=== PATIENT | male | born 1940 | race Caucasian/White ===

== ENCOUNTER 2020-07-08 09:51 | Outpatient (REF) | payer MEDICARE, MEDICAID, SELFPAY ==
[2020-07-08 12:07] LABS: Blood Urea Nitrogen 17 mg/dL (9-16); Estimated Glomerular Filt Rate > 60
== END 2020-07-08 09:52 | disposition home or self-care (01) ==
LOC: HO.LAB 09:51
PROVIDERS: PCP Internal Medicine; Visit Provider Surgery
DX: R10.30 Lower abdominal pain, unspecified (principal); Z87.19 Personal history of other diseases of the digestive system
CPT/HCPCS: 36415; 82565; 84520; 99212

== ENCOUNTER 2020-07-14 13:47 | Outpatient (REF) | payer MEDICARE, MEDICAID, SELFPAY ==
--- NOTE | ~2020-07-14 | CT_ITS ---
EXAMINATION: CT ABDOMEN AND PELVIS WITH CONTRAST CLINICAL INFORMATION: Lower abdominal pain COMPARISON: Previous CT of the abdomen and pelvis December 2018 TECHNIQUE: Multidetector volumetric images were obtained from the superior aspect of the liver through the pubic symphysis following administration 85 mL of Omnipaque 350 intravenous contrast. Sagittal and coronal reformatted images were obtained on the technologist's workstation. Oral contrast: Yes This CT examination was performed using dose optimization techniques as appropriate, variously including the following: *Automated exposure control *Adjustment of mA and/or kV according to patient size (this includes techniques or standardized protocols for targeted exams where dose is matched to indication/reason for exam; i.e. extremities or head) *Use of iterative reconstruction technique DLP: 516 mGy-cm FINDINGS: LUNG BASES: There is scarring or chronic subsegmental atelectasis at the left lung base. LIVER, GALLBLADDER, AND BILIARY TREE: The liver is normal in size, shape, and attenuation. No focal hepatic lesion or biliary ductal dilatation is present. The gallbladder is unremarkable with no evidence of radiopaque gallstones, gallbladder wall thickening, or obvious pericholecystic inflammatory changes. PANCREAS: Unremarkable. SPLEEN: Unremarkable. ADRENAL GLANDS: Unremarkable. KIDNEYS AND URETERS: There is a 4 x 6 cm cyst in the lower pole the left kidney. Kidneys are otherwise BLADDER: The left lower bladder and small left inguinal hernia. Latter is otherwise unremarkable GASTROINTESTINAL TRACT: There is diverticulosis of the colon. No evidence of diverticulitis otherwise unremarkable. The stomach is not optimally distended. There is question of wall thickening of the proximal stomach. ABDOMINAL WALL: There are bilateral inguinal hernias. The right inguinal hernia containing fat. The left hernia containing fat and bladder. LYMPH NODES: Normal. VASCULAR: Unremarkable. PELVIC VISCERA: The prostate gland is enlarged measuring 4 x 6.5 cm in AP and transverse dimension. OSSEOUS STRUCTURES: There are degenerative changes of the spine. CT/CT abdomen pelvis w con IMPRESSION: Diverticulosis of the colon. No evidence of diverticulitis. Question wall thickening of proximal stomach. Small bilateral inguinal hernias. The bladder extends into the left inguinal hernia. Left renal cyst. Enlarged prostate gland.
[2020-07-14] MEDS: iohexoL 350 MG/ML 100 ML INFUS..BTL IV (14:34)
== END 2020-07-14 13:48 | disposition home or self-care (01) ==
LOC: HO.CT 13:47
PROVIDERS: Visit Provider Surgery
DX: R10.30 Lower abdominal pain, unspecified (principal)
CPT/HCPCS: 74177; Q9967

== ENCOUNTER → 2020-07-26 13:29 | Outpatient (BNVA) | payer MEDICARE, MEDICAID, SELFPAY | PROVIDERS: PCP Internal Medicine; Visit Provider Surgery | DX: K40.91 Unilateral inguinal hernia, without obstruction or gangrene, recurrent (principal) | CPT/HCPCS: 99212 ==

== ENCOUNTER 2020-09-01 12:27 | Outpatient (REF) | payer MEDICARE, MEDICAID, SELFPAY ==
--- NOTE | ~2020-09-01 | US_ITS ---
EXAMINATION: US RETROPERITONEAL LIMITED (RENAL ONLY) CLINICAL INFORMATION: Congenital renal cyst. COMPARISON: CT abdomen and pelvis 07/14/2020. Ultrasound renal with bladder 12/23/2013. TECHNIQUE: Real-time imaging of the kidneys. FINDINGS: RIGHT KIDNEY: 11.4 x 5.1 x 4.7 cm (SAG x AP x TRV). The kidney is normal in size, contour, and echogenicity. Renal cortical thickness is normal. No calculi or focal parenchymal lesions. No hydronephrosis. LEFT KIDNEY: 12.8 x 6.4 x 4.2 cm (SAG x AP x TRV). The kidney is normal in size, contour, and echogenicity. Renal cortical thickness is normal. No renal calculi or hydronephrosis. Within the lower pole there is again noted to be a cyst measuring 7.4 x 4.3 x 5.3 cm in size with some lobulations and thin septations with no internal vascularity. The cyst has been present since previous study of December 23, 2013. 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
== END 2020-09-01 12:28 | disposition home or self-care (01) ==
LOC: HO.US 12:27
PROVIDERS: Visit Provider Internal Medicine
DX: Q61.00 Congenital renal cyst, unspecified (principal)
CPT/HCPCS: 76775

== ENCOUNTER → 2020-11-22 14:48 | Outpatient (BNVA) | payer MEDICARE, MEDICAID, SELFPAY | PROVIDERS: PCP Internal Medicine; Referring Provider Internal Medicine; Visit Provider Surgery | DX: K40.91 Unilateral inguinal hernia, without obstruction or gangrene, recurrent (principal) | CPT/HCPCS: 99212 ==

== ENCOUNTER 2020-12-10 07:00 | Day surgery (SDC) | payer MEDICARE, MEDICAID, SELFPAY ==
[2020-12-03 11:41] VITALS: BMI 29.1
--- NOTE | 2020-12-08 15:27 | P.CONAN_ITS ---
Documented by User: Katie Zhao NP 12/20/20 14:27 HPI - Anesthesia Eval Consult details Narrative: 79yo M for Hernia Repair Inguinal with Mesh PMFSH Active Problems Active Problems: All Active Problems (Updated 12/03/20 @ 11:41 by Lexi Glasgow, RN) Recurrent inguinal hernia (Acute) Lower abdominal pain (Acute) Past Medical History Medical History BPH (benign prostatic hyperplasia) COVID-19 vaccine series completed GERD (gastroesophageal reflux disease) HTN (hypertension) Lower abdominal pain Recurrent inguinal hernia Family History Family History Sister Breast cancer Surgical History Surgical History H/O colonoscopy History of hernia surgery History of hernia surgery History of left inguinal hernia repair Hx of cystoscopy Hx of transurethral resection of prostate Hx of varicose vein ligation and stripping Social History Social History Are you a primary career development associate to a significant other at home: No Do you presently have visiting nurse or other home services: No Alcohol intake: never Patient Tobacco Use Status: Never used Tobacco Meds Allergies Allergy/AdvReac Type Severity Reaction Status Date / Time No Known Allergies Allergy Verified 12/20/20 16:22 [No Known Allergies*] Home Medications Medication Instructions Recorded Confirmed Last Taken Type aspirin 81 mg tablet,delayed 81 mg PO DAILY 07/08/20 12/03/20 Unknown History release fluticasone propionate 50 2 spray INTRANASAL DAILY 07/08/20 12/03/20 Unknown History mcg/actuation nasal spray,suspension lisinopril 40 mg tablet 40 mg PO DAILY 07/08/20 12/03/20 Unknown History metoprolol succinate 100 mg 100 mg PO DAILY 07/08/20 12/03/20 Unknown History tablet,extended release 24 hr omeprazole 20 mg capsule,delayed 20 mg PO DAILY 07/08/20 12/03/20 Unknown History release polyvinyl alcohol 1.4 % eye drops 0 drp OPHTHALMIC (EYE) DIRECTED 07/08/20 12/03/20 Unknown History Exam Exam Date and Time: December 08, 2020 1527 Height,Weight and Vital Signs: Height 6 ft 2 in Weight 102.965 kg Assessment and Plan Assessment Anesthesia Assessment: Chart Reviewed Documented by User: Susu Rodriguez MD 01/20/21 09:16 PMFSH Active Problems Active Problems: All Active Problems (Updated 12/03/20 @ 11:41 by Lexi Glasgow, ERIC) Recurrent inguinal hernia (Acute) Lower abdominal pain (Acute) Patient a little shaky- tremors with signing Past Medical History Medical History BPH (benign prostatic hyperplasia) COVID-19 vaccine series completed GERD (gastroesophageal reflux disease) HTN (hypertension) Lower abdominal pain Recurrent inguinal hernia Family History Family History Sister Breast cancer Family history of problems with anesthesia: No Surgical History Surgical History H/O colonoscopy History of hernia surgery History of hernia surgery History of left inguinal hernia repair Hx of cystoscopy Hx of transurethral resection of prostate Hx of varicose vein ligation and stripping History of Problems with Anesthesia: No Social History Social History Are you a primary career development associate to a significant other at home: No Do you presently have visiting nurse or other home services: No Alcohol intake: never Patient Tobacco Use Status: Never used Tobacco Meds Allergies Allergy/AdvReac Type Severity Reaction Status Date / Time No Known Allergies Allergy Verified 12/20/20 16:22 [No Known Allergies*] Home Medications Medication Instructions Recorded Confirmed Last Taken Type aspirin 81 mg tablet,delayed 81 mg PO DAILY 07/08/20 12/03/20 Unknown History release fluticasone propionate 50 2 spray INTRANASAL DAILY 07/08/20 12/03/20 Unknown History mcg/actuation nasal spray,suspension lisinopril 40 mg tablet 40 mg PO DAILY 07/08/20 12/03/20 Unknown History metoprolol succinate 100 mg 100 mg PO DAILY 07/08/20 12/03/20 Unknown History tablet,extended release 24 hr omeprazole 20 mg capsule,delayed 20 mg PO DAILY 07/08/20 12/03/20 Unknown History release polyvinyl alcohol 1.4 % eye drops 0 drp OPHTHALMIC (EYE) DIRECTED 07/08/20 12/03/20 Unknown History Exam Height,Weight and Vital Signs: Height 6 ft 2 in Weight 102.965 kg Vital Signs Temp Pulse Resp BP Pulse Ox 12/10/20 07:18 98.0 F 61 16 142/98 H 98 Airway Mallampati Class: II TM Dist: >3cm Neck ROM: Full Partial: Upper Loose/Missing/Broken Teeth: Yes (Some ?chipped lower) Heart: RRR Lungs: CTAB Assessment and Plan Assessment Anesthesia Assessment: Anesthesia Plan Discussed Final Anesthetic Review Family History of Problems with Anesthesia: No History of Problems with Anesthesia: No NPO: Yes ASA Class: III Final Preanesthetic Review: No Changes in Pt Med Stat, Meds/Allgs Chart Reviewed, Consent Obtained/Reviewed and Anes Risks/Benef Reviewed Patient Risk: Intermediate Procedure Risk: Low Assessment/Block/Sedation in SS: Assess/Block/Sedation-SS Anesthetic Plan Anesthetic Plan: GA Disposition: Standard PACU
[2020-12-10] VITALS (9 sets, daily range): BP systolic 105–160; BP diastolic 60–100; PULSE 53–61; RESP 11–17; TEMP 36.4–36.7; O2SAT 94–98
[2020-12-10] MEDS: Lactated Ringers 1,000 ML 100 ML IVCONT (07:33)
--- NOTE | 2020-12-10 08:21 | MHC.SHP ---
Pre-Procedural Eval Section A Date of Service: 12/10/20 Section B Chief Complaint: Left Inguinal Hernia Allergies: Allergies Allergy/AdvReac Type Severity Reaction Status Date / Time No Known Allergies Allergy Verified 07/26/20 13:42 [No Known Allergies*] Plan I have reviewed the history and physical and performed a pertinent physical examination on my patient. No changes have occurred unless specified.
--- NOTE | 2020-12-10 09:45 | W.PM.OPN ---
Operative Note Operative Note Date of Service: 12/10/20 Narrative: Preop diagnosis: Recurrent left inguinal hernia Postop diagnosis: Recurrent left inguinal hernia Procedure: Repair of a recurrent left inguinal hernia with Prolene plug Surgeon: Nayan Geiger MD 1st social services assistant: TRISTAN Herron The patient is a 79-year-old male who was had multiple repairs of left inguinal hernia in the past. He came back to me because of the another recurrence. He says this has been bothering him with pain he wanted to proceed with another repair. I did have a long discussion with him about the technical difficulty with another repair in view of his multiple surgeries in the past and he understood that he would be at risk for chronic pain and another recurrence as we anticipate significant fibrotic scarring and poor anatomy from his previous surgeries. He says he wanted to give it another try. He was brought to the operating room and placed supine on table under general anesthesia via laryngeal mask airway. The left groin was prepped and draped in the usual sterile fashion. A surgical time-out was done. The patient received cefazolin 2 g IV preoperatively I made a generous incision on the skin in the left inguinal area along an imaginary line from the anterior superior iliac spine to the pubic ramus using blade 15. This carried down through the full-thickness of the skin and subcutaneous fat with electrocautery.It is noted that we immediately encountered thick fibrotic tissue from his previous surgeries on the same area. He had therefore had to dissect gently and slowly until was able to clearly expose the external oblique aponeurosis. I could not clearly define the external ring as there was note of very dense fibrotic tissue around this area. I continued to gently dissect the floor of the canal past the external ring. I was able to expose the pubic ramus. Laterally, we also noted significant fibrotic changes. I continued to dissect gently using the right angle clamp and Metzenbaum scissors as well as electrocautery to define the anatomy and the left groin. I was able to actually visualize the spermatic cord going inferomedially the level of the pubic ramus. With blunt dissection, I was able to isolate this but there was note of significant surrounding fibrotic tissue. I attempted to therefore use the pneumatic cordas a guide to trace this more proximally to see if we could still identify the external ring at all. However, we encountered again the same thick dense fibrosis in the area. I felt that at this time, we would be at risk for injuring structuresof the spermatic cord in view of the very poor anatomy from the dense scarring. I was however able to palpate for the underside of the external oblique medially. I was able to at least expose part of the external oblique in this area. I was therefore able to palpate for the floor of the canal distally. I continued to dissect the spermatic cord to identify any sac. I could not identify a sac but I could feel a defect in the floor of the canal which was very small. This appeared to be the diameter of my index finger. Since we he would not be able to expose the rest of the canal, I decided to just reinforced this small defect with a Prolene plug. The plug was secured using its inner leaves with Prolene 2 sutures to the internal oblique medially, and the pubic ramus inferomedially as well as part of the pubis inferiorly. This seemed to secure the Prolene plug to provide adequate coverage of the small defect. I felt that further dissection in the area would put the patient at risk for injury to the cord contents as well as the femoral vessels underneath so I decided against further aggressive dissection. I obviously irrigated. I closed the deep subcutaneous layer surrounding the canal past the level of the external ring using Dexon 3-0 sutures. Skin closure was achieved with Dexon 4-0 subcuticular sutures. The area of the incision was generously infiltrated with Marcaine 0.5% for postop analgesia and the procedure was completed. The patient tolerated the procedure well. There were no complications noted. Initial and final counts of sponges and instruments were correct. Estimated blood loss about 25 cc. The patient is extubated without difficulty and transferred to recovery room with stable vital signs.
--- NOTE | 2020-12-10 09:54 | PM.OP ---
Brief Operative Note Date of Service: 12/10/20 Pre-op diagnosis: Recurrent left inguinal hernia Post-op diagnosis: same (With note of very dense fibrotic changes surrounding the inguinal canal) Procedure: Repair of Recurrent left inguinal hernia with Prolene plug Implants: Prolene plug Surgeon: Nayan Geiger MD Anesthesia: GLMA Was an Packing And Wrapping Supervisor used for this Procedure?: No Packing And Wrapping Supervisor: Rosario Herron Estimated blood loss (mL): 25 Pathology: none sent Condition: stable Disposition: PACU
[2020-12-10] MEDS: ondansetron HCL 4 MG/2 ML VIAL IVPUSH (10:53)
[2020-12-10] MEDS: Acetaminophen 325 MG TABLET 650 MG PO (10:56)
[2020-12-10] MEDS: oxyCODONE HCl Immed Release 5 MG TABLET PO (10:57)
== END 2020-12-10 11:50 | disposition home or self-care (01) ==
PROVIDERS: PCP Internal Medicine; Visit Provider Surgery
PROC: (CPT 49520; principal; 2020-12-10 08:40)
DX: K40.91 Unilateral inguinal hernia, without obstruction or gangrene, recurrent (principal); K21.9 Gastro-esophageal reflux disease without esophagitis; I10 Essential (primary) hypertension; Z79.82 Long term (current) use of aspirin; Z79.899 Other long term (current) drug therapy
CPT/HCPCS: 49520; C1781; J0690; J2405; J3010

== ENCOUNTER → 2020-12-20 15:30 | Outpatient (BNVA) | payer MEDICARE, MEDICAID, SELFPAY | PROVIDERS: PCP Internal Medicine; Referring Provider Internal Medicine; Visit Provider Surgery | DX: Z48.815 Encounter for surgical aftercare following surgery on the digestive system (principal); Z87.19 Personal history of other diseases of the digestive system | CPT/HCPCS: 99212 ==

== ENCOUNTER → 2021-01-20 10:52 | Outpatient (BNVA) | payer MEDICARE, MEDICAID, SELFPAY | PROVIDERS: PCP Internal Medicine; Referring Provider Internal Medicine; Visit Provider Surgery | DX: K40.91 Unilateral inguinal hernia, without obstruction or gangrene, recurrent (principal); L72.0 Epidermal cyst | CPT/HCPCS: 99212 ==

== ENCOUNTER → 2021-02-22 08:47 | Outpatient (BNVA) | payer MEDICARE, MEDICAID, SELFPAY | PROVIDERS: PCP Internal Medicine; Visit Provider Urology | DX: N40.0 Benign prostatic hyperplasia without lower urinary tract symptoms (principal); R10.31 Right lower quadrant pain; R10.32 Left lower quadrant pain | CPT/HCPCS: 51798; 99212 ==

== ENCOUNTER 2021-02-24 14:00 | Outpatient (REF) | payer MEDICARE, MEDICAID, SELFPAY ==
[2021-02-24 14:01] VITALS: BMI 29.5
[2021-02-24 14:02] VITALS: BP 158/91; PULSE 67; RESP 16; TEMP 36.7; O2SAT 97
--- NOTE | 2021-02-24 14:23 | W.PM.OPN ---
Operative Note Operative Note Date of Service: 02/24/21 Narrative: Preop diagnosis: Scalp cyst, postauricular area left Postop diagnosis the same Procedure: Excision of scalp cyst, postauricular area under local anesthesia Surgeon: Nayan Geiger MD The patient is a 80-year-old male with an epidermal inclusion cyst on the scalp at the postauricular area on the left side. He understood the technique of excision under local anesthesia. He was aware of the risks, benefits, and alternatives . Was brought to the minor procedure room and placed supine with the head turned to the right expose the cyst. The area was prepped and draped. Lidocaine 1% was used for local anesthesia. I made an elliptical incision around this cyst using blade 15 and this was carried down through the full-thickness of the skin and subcutaneous fat to excise this entire cystic induration. This was sent as specimen. I closed the incision with multiple nylon 3-0 interrupted sutures. Bacitracin dressings were applied The patient tolerated theprocedure well with no complications noted. Estimated blood loss was about 2 cc. The patient was given wound care instructions and will be seen in the office for follow-up.
[2021-02-24 14:25] VITALS: BP 151/88; PULSE 70; RESP 16; O2SAT 97
== END 2021-02-24 14:01 | disposition home or self-care (01) ==
LOC: HO.MS 14:00
PROVIDERS: PCP Internal Medicine; Visit Provider Surgery
PROC: (CPT 11422; principal; 2021-02-24 14:10)
DX: L72.0 Epidermal cyst (principal)
CPT/HCPCS: 11422; 88304

== ENCOUNTER → 2021-03-07 11:03 | Outpatient (BNVA) | payer MEDICARE, MEDICAID, SELFPAY | PROVIDERS: PCP Internal Medicine; Referring Provider Internal Medicine; Visit Provider Surgery | DX: Z09 Encounter for follow-up examination after completed treatment for conditions other than malignant neoplasm (principal); Z87.2 Personal history of diseases of the skin and subcutaneous tissue | CPT/HCPCS: 99212 ==

== ENCOUNTER 2021-04-20 13:00 | Outpatient (RCR) | payer MEDICARE, MEDICAID, SELFPAY ==
--- NOTE | 2021-03-10 14:04 | MHC.PT.EP ---
[facility] [place] [facility] [place] [facility] [place] [facility] [address] Keaton Dickey [address] [phone] F: [phone] F: [phone] F: [phone] F: [phone] Physical Therapy Plan of Care Date of Evaluation: 03/10/20 Date of Surgery: Diagnosis: right and left quadrant pain. Assessment: The patient arrived reporting left testicular pain, and left lower quadrant pain. With further questioning regarding his pelvic floor he shared he has increased urinary frequency, intermittent fecal incontinence (stool staining x 1 year), erectile dysfunction x 1 year, and testicular pain x 1 year. Rectal assessment of his pelvic floor muscles show perf scale of 1/4/3//2. He currently has poor NMR control. He has poor muscular endurance of PFM. He will also benefit from scar massage to help visceral mobility in the lower abdomen and bladder. He is a good candidate for skilled PT. Frequency and Duration: The patient will be seen 1x/week x 4 weeks Short Term Goals: 1. The patient to be able to demonstrate correct diaphragmatic breathing. 2. Pt to be able to do HEP with minimal v/c's. 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 Pt to be able to have normal bladder function. 2. Pt to be able to have no testicular pain at rest. 3. Pt to be able to have improvement in NMR recruitment of PFM to help with bowel function. Treatment Plan: Modalities to reduce pain, spasms and effusion. Manual therapy to restore motion and function. Therapeutic exercise to improve strength and flexibility. Neuromuscular re-education for posture and balance. Therapeutic activities to return to functional activities of daily living. Electronically signed by: Lucero Nicole PT DPT Please sign and return to therapist. Thank you for your referral.
--- NOTE | 2021-04-20 14:27 | MHC.PT.DC ---
[facility] [place] [facility] [place] [facility] [place] [facility] [address] Keaton Dickey [address] [phone] F: [phone] F: [phone] F: [phone] F: [phone] Physical Therapy Discharge Report Diagnosis: right and left quadrant pain. Date of Surgery: Date of Evaluation: 03/10/21 Date of Discharge: 04/20/21 Treatments to Date: 5 Cancellations to Date: No Shows to Date: Discharge Status: Achieved Goals Improved Function Independent with HEP Discharge Summary: No testicular pain today. No pelvic pain today. No longer has fecal incontinence. He reports compliance to HEP. He tolerated today's treatment without additional pain. I printed an updated HEP. I gave him theraband. He was independent with his HEP. At this point therapy is no longer indicated. Pt d/c today. Electronically signed by: Lucero Nicole PT DPT Please sign and return to therapist. Thank you for your referral.
== END 2021-05-17 14:11 | disposition home or self-care (01) ==
LOC: HO.PT 13:00
PROVIDERS: PCP Internal Medicine; Visit Provider Urology
DX: R10.31 Right lower quadrant pain (principal); R10.32 Left lower quadrant pain
CPT/HCPCS: 97110; 97140; 97162; 97530

== ENCOUNTER → 2021-05-24 08:29 | Outpatient (BNVA) | payer MEDICARE, MEDICAID, SELFPAY | PROVIDERS: PCP Internal Medicine; Visit Provider Urology | DX: N28.1 Cyst of kidney, acquired (principal); N50.819 Testicular pain, unspecified | CPT/HCPCS: 51798; 99212 ==

== ENCOUNTER 2021-08-09 11:39 | Emergency (ER) | payer MEDICARE, MEDICAID, SELFPAY ==
--- NOTE | ~2021-08-09 | US_ITS ---
EXAMINATION: US VENOUS ULTRASOUND WITH DOPPLER LOWER EXTREMITY, BILATERAL CLINICAL INFORMATION: Bilateral lower extremity edema and pain COMPARISON: Left lower extremity Doppler 11/24/2010 TECHNIQUE: Ultrasound of the deep veins is performed from the hip to the calf with compression sonography and color and pulse Doppler assessment. Spectral analysis with color-flow imaging is performed. FINDINGS: RIGHT: There is normal venous compression and respiratory variation and augmented flow. The visualized common femoral vein, superficial femoral vein, profunda femoral vein, popliteal vein, and the trifurcation region shows no evidence of deep venous thrombosis. There is no significant popliteal fossa cyst. LEFT: There is normal venous compression and respiratory variation and augmented flow. The visualized common femoral vein, superficial femoral vein, profunda femoral vein, popliteal vein, and the trifurcation region shows no evidence of deep venous thrombosis. There is no significant popliteal fossa cyst. If the patient's symptoms persist, followup ultrasound in 5 days 7 days might be of value to exclude proximal propagation from a non-visualized calf vein. US/US venous duplex LE BI IMPRESSION: No DVT demonstrated in either lower extremity.
--- NOTE | ~2021-08-09 | XR_ITS ---
EXAMINATION: XR CHEST CLINICAL INFORMATION: Shortness of breath COMPARISON: None TECHNIQUE: Frontal view of the chest was obtained. FINDINGS: Lungs grossly clear. Heart and pulmonary vessels are normal. No congestive change. XR/XR chest 1V IMPRESSION: No active disease.
--- NOTE | ~2021-08-09 | CT_ITS ---
EXAMINATION: CT ANGIOGRAM OF THE CHEST WITH AND WITHOUT CONTRAST (CT PULMONARY ANGIOGRAM FOR PE) CLINICAL INFORMATION: Reason for Exam pt c sob/back pain elevated d-dimer COMPARISON: None TECHNIQUE: Prior to contrast administration, noncontrast localization images were obtained. Subsequently, multidetector volumetric imaging was performed from the thoracic inlet to below the diaphragms following the administration of 85 mL Omnipaque 350 intravenous contrast. No contrast reaction reported Sagittal, coronal, and MIP oblique sagittal reformatted images were obtained on the CT workstation, uploaded to PACS, and reviewed. This CT examination was performed using dose optimization techniques as appropriate, variously including the following: *Automated exposure control *Adjustment of mA and/or kV according to patient size (this includes techniques or standardized protocols for targeted exams where dose is matched to indication/reason for exam; i.e. extremities or head) *Use of iterative reconstruction technique Total exam dose-length product 396 mGy-cm FINDINGS: QUALITY OF STUDY/CONTRAST BOLUS: Satisfactory. PULMONARY ARTERIES: Bilateral pulmonary emboli are present with segmental emboli in the right lower lobe as well as left upper. THORACIC AORTA: No aneurysm or dissection. LUNG: A few scattered punctate granulomas are present. Bandlike left lower lobe atelectasis is seen. No focal consolidation, nodules or worrisome masses. PLEURA: No pleural effusion or pneumothorax. MEDIASTINUM: Normal heart size. No pericardial effusion. No hilar or mediastinal lymphadenopathy. No evidence of septal bowing or right heart strain. CHEST WALL/AXILLA: No axillary or internal mammary lymphadenopathy. OSSEOUS STRUCTURES: No acute or suspicious osseous abnormality. Mild degenerative changes are noted in the spine. UPPER ABDOMEN: See abdominal CT report same day No reflux of contrast into the hepatic veins to suggest elevated right heart pressures. CT/CT angio chest PE protocol IMPRESSION: Bilateral small segmental pulmonary emboli with no evidence of right heart strain VTE: Positive This critical result was discussed with Anushka owens at 4:50 PM on the day the exam and it was ascertained that the content and urgency of the report was understood at the time of direct communication.
--- NOTE | ~2021-08-09 | CT_ITS ---
EXAMINATION: CT ABDOMEN AND PELVIS WITH CONTRAST CLINICAL INFORMATION: Shortness of breath with back and abdominal pain COMPARISON: CT abdomen pelvis 07/14/2020 TECHNIQUE: Multidetector volumetric images were obtained from the superior aspect of the liver through the pubic symphysis following administration 85 mL of Omnipaque 350 intravenous contrast. Sagittal and coronal reformatted images were obtained on the technologist's workstation. Oral contrast: No This CT examination was performed using dose optimization techniques as appropriate, variously including the following: *Automated exposure control *Adjustment of mA and/or kV according to patient size (this includes techniques or standardized protocols for targeted exams where dose is matched to indication/reason for exam; i.e. extremities or head) *Use of iterative reconstruction technique DLP: 704 mGy-cm FINDINGS: LUNG BASES: The visualized lung bases are unremarkable. LIVER, GALLBLADDER, AND BILIARY TREE: The liver is normal in size, shape, and attenuation. No focal hepatic lesion or biliary ductal dilatation is present. The gallbladder is unremarkable aside from a small phrygian cap and some possible thickening at the gallbladder fundus. Similar findings were present previously. There is no evidence of radiopaque gallstones or obvious pericholecystic inflammatory changes. PANCREAS: Unremarkable. SPLEEN: Unremarkable. ADRENAL GLANDS: Unremarkable. KIDNEYS AND URETERS: The kidneys are normal in size, shape, and attenuation. There is a benign 6.6 cm Bosniak class I left lower pole renal cyst present which needs no further imaging or follow-up. No hydronephrosis, hydroureter, or calculi seen. No perinephric stranding. BLADDER: Empty. A small corner of the bladder is within a left direct inguinal hernia. GASTROINTESTINAL TRACT: The small and large bowel are unremarkable aside from colonic diverticular changes without diverticulitis.. The appendix is unremarkable. ABDOMINAL WALL: There are bilateral small direct inguinal hernias seen containing fat on the right and a small portion of the bladder on the left. Identical findings were present previously. LYMPH NODES: No retroperitoneal lymphadenopathy. VASCULAR: Unremarkable. PELVIC VISCERA: There is moderate prostate enlargement. Seminal vesicles appear normal. OSSEOUS STRUCTURES: Degenerative changes are present throughout the spine. No bony destructive lesions. CT/CT abdomen pelvis w con IMPRESSION: 1. Tiny phrygian cap with some mild thickening. Gallbladder ultrasound could be useful for further evaluation patient has right upper quadrant symptoms. 2. Unchanged bilateral inguinal hernias containing a small portion of bladder on the left. 3. Other incidental findings described above. Fleischner guidelines were followed.
[2021-08-09 11:49] VITALS: BP 144/86; PULSE 71; RESP 18; TEMP 36.4; O2SAT 97; BMI 30.2
--- NOTE | 2021-08-09 11:54 | ECG_ITS ---
Test Reason : cp Blood Pressure : / mmHG Vent. Rate : 066 BPM Atrial Rate : 066 BPM P-R Int : 236 ms QRS Dur : 144 ms QT Int : 424 ms P-R-T Axes : 014 -57 009 degrees QTc Int : 444 ms Sinus rhythm with 1st degree A-V block Right bundle branch block Left anterior fascicular block Bifascicular block Septal infarct , age undetermined Abnormal ECG When compared with ECG of 07-FEB-2019 14:57, No significant change was found Referred By: Generic ED Physician Electronically Signed By:Bismark Adam
[2021-08-09 12:18] LABS: Hematocrit 43.1 % (42.0-52.0); Hemoglobin 14.5 g/dl (14.0-18.0); Mean Corpuscular HGB Conc 33.6 g/dl (31.0-36.0); Mean Platelet Volume 9.8 fL (9.4-12.4); Platelet Count 216 X10*3/uL (160-400); Red Blood Count 4.84 X10*6/uL (4.60-5.80); Red Cell Distribution Width 12.6 % (11.0-16.0); White Blood Count 7.9 X10*3/uL (4.8-10.8)
[2021-08-09 12:25] LABS: D Dimer High Sensitivity 506 NG/ML
[2021-08-09 12:40] LABS: Anion Gap 12 (12-20); Blood Urea Nitrogen 17 mg/dL (9-16); Calcium 8.9 mg/dL (8.4-10.2); Carbon Dioxide 24 mmol/L (22-29); Chloride 108 mmol/L (96-108); Creatinine Clr Calc Pharmacy 88.9; Estimated Glomerular Filt Rate > 60; Glucose Random 118 mg/dL (60-115); Potassium 4.2 mmol/L (3.3-5.1); Sodium 140 mmol/L (135-145)
[2021-08-09 12:46] LABS: Troponin-I High Sensitivity < 3.5 ng/L (<3.5-35.0)
[2021-08-09 13:00] LABS: COVID-19 Test Negative (Negative); IDNOW Serial# 16C4AD1C
[2021-08-09] MEDS: iohexoL 350 MG/ML 100 ML INFUS..BTL IV (15:12)
[2021-08-09 15:18] LABS: B Type Natriuretic Peptide 90 pg/mL (<100)
--- NOTE | 2021-08-09 15:30 | ED_ITS ---
HPI - SOB/Dyspnea General Chief Complaint: Dyspnea Stated Complaint: sob, back pain Time Seen by Provider: 08/09/21 13:40 Source: patient, RN notes reviewed and old records reviewed Limitations: no limitations History of Present Illness HPI Narrative: This is a 80-year-old male, with a past medical history recurrent inguinal hernia with hernia repair in February 2021, presents to the emergency department with complaints of shortness of breath, productive cough, and back pain since yesterday. Patient reports that he developed shortness of breath with a productive cough and back pain while he is watching television yesterday. He states that the shortness of breath is not constant, and notices that his shortness of breath worsens with exertion as well as when he is lying flat. He also reports that he has had left leg swelling. He denies any trauma or injury to his leg. He denies tobacco use, history of cancer, blood clots, recent or surgeries. He did travel to [place] via the [employer] 2 weeks ago, which took approximately [address] and reports that he did not return until 4 days later. Denies any fevers, chills, nausea, vomiting, diarrhea. He does report some lower abdominal pressure. He does admit to having some pressure with urination, he denies any dysuria. He reports that he has a history of prostate problems, but denies being on any medications at this time. He denies any complaints or concerns at this time. MD elicited complaint: shortness of breath and cough Onset (ago): day(s) (1) Timing: progressively worsening Severity: moderate Exacerbating factors: lying flat and movement Relieving factors: upright position Associated symptoms: orthopnea Treatment prior to arrival: none Related Data Home oxygen amount: none Home Medications Medication Instructions Recorded Confirmed aspirin 81 mg tablet,delayed 81 mg PO DAILY 07/08/20 08/09/21 release fluticasone propionate 50 2 spray intranasal DAILY 07/08/20 01/20/21 mcg/actuation nasal spray,suspension lisinopril 40 mg tablet 40 mg PO DAILY 07/08/20 08/09/21 metoprolol succinate 100 mg 100 mg PO DAILY 07/08/20 08/09/21 tablet,extended release 24 hr omeprazole 20 mg capsule,delayed 20 mg PO DAILY 07/08/20 08/09/21 release polyvinyl alcohol 1.4 % eye drops 0 drp ophthalmic (eye) DIRECTED 07/08/20 01/20/21 metoprolol succinate 25 mg 25 mg PO DAILY 02/22/21 08/09/21 tablet,extended release 24 hr Previous Rx's Medication Instructions Recorded tramadol 50 mg tablet 50 mg PO Q6H PRN pain #30 tabs 11/22/20 ibuprofen 600 mg tablet 600 mg PO Q6H PRN pain #30 tabs 12/10/20 oxycodone-acetaminophen 5 mg-325 1 tab PO Q4-6H PRN pain #30 tabs 12/10/20 mg tablet (Percocet) apixaban 5 mg tablet (Eliquis) 5 mg PO BID Pulmonary embolism #90 08/09/21 tabs Allergies Allergy/AdvReac Type Severity Reaction Status Date / Time No Known Allergies Allergy Verified 08/09/21 11:52 [No Known Allergies*] Review of Systems Review of Systems: Constitutional : No Weight loss, No Fever, No Chills, No Night Sweats, No Fatigue, No Malaise ENT/Mouth : No Hearing loss, No Ear Pain, No Nasal Congestion, No Sinus Pain, No Hoarseness, No sore throat, No Rhinorrhea, No Swallowing Difficulty Eyes: No Eye Pain, No Swelling, No Redness, No Foreign Body, No Discharge, No Vision Changes Cardiovascular : +Orthopnea, No Chest Pain, No Dyspnea on Exertion, No Edema, No Palpitations Respiratory : +shortness of breath, No Cough, No Sputum, No Wheezing, No Smoke Exposure, No Dyspnea Gastrointestinal : No Nausea, No Vomiting, No Diarrhea, No Constipation, No abdominal Pain, No Hematochezia, No Melena Genitourinary : no irregular bleeding, No Dysuria, No Urinary Frequency, No Hematuria, No Urinary Incontinence, No Urgency, No Flank Pain, No Urinary Flow Changes, No Hesitancy Musculoskeletal : No joint pain, No Myalgias, No Joint Swelling Skin : No Skin Lesions, No rash Neuro : No Weakness, No Numbness, No Paresthesias, No Loss of Consciousness, No Dizziness, No Headache Psych : No Anxiety/Panic, No Depression, No SI/HI/AH/VH, No Social Issues, Heme/Lymph: No Bruising, No Bleeding,No Lymphadenopathy Endocrine : No Polyuria, No Polydipsia, No Temperature Intolerance Yes all other systems are reviewed and are negative PMFSH Past Medical History Attestation statement: The following information was validated with the patient. Source: old records reviewed and nursing notes reviewed Medical History BPH (benign prostatic hyperplasia) COVID-19 vaccine series completed Epidermal cyst GERD (gastroesophageal reflux disease) HTN (hypertension) Lower abdominal pain Recurrent inguinal hernia Surgical History H/O colonoscopy History of hernia surgery History of hernia surgery History of left inguinal hernia repair History of removal of cyst History of removal of cyst Hx of cystoscopy Hx of transurethral resection of prostate Hx of varicose vein ligation and stripping Family History Family History Sister Breast cancer Social History Social History Are you a primary childcare center administrator to a significant other at home: No Do you presently have visiting nurse or other home services: No Alcohol intake: never Patient Tobacco Use Status: Never used Tobacco Advance Directives: No Physical Exam 2 Vital Signs: Vital Signs: Last Vital Signs Temp 97.6 F 08/09/21 16:24 Pulse 59 08/09/21 16:24 Resp 18 08/09/21 16:24 BP 152/91 H 08/09/21 16:24 Pulse Ox 98 08/09/21 16:24 O2 Del Method 08/09/21 16:24 BMI result Body Mass Index 30.2 Vital signs have been reviewed as normal and appeared to be correct. Blood pressure is mildly hypertensive at 144/86. Heart rate normal. Respiration rate normal. Temperature normal. Oxygen saturation normal. Appearance: Alert. Oriented X3. No acute distress. Head: Normal external exam. Normocephalic. Atraumatic. Eyes: PERRLA. EOMI. Conjunctiva and sclera normal. Eyelids normal. ENT: EAC normal. Pharynx normal. Uvula midline. Moist mucous membranes. No lesions/ulcerations or masses noted on the tongue. Normal voice. No trismus noted. No drooling noted. No muffled voice noted. Neck: Normal inspection. Neck supple. FROM. No adenopathy. Thyroid Normal. No tracheal deviation noted. No crepitus is noted. No meningeal signs. No neck mass noted. No signs of trauma noted. CVS: Normal heart rate and rhythm. Heart sound normal. Pulses normal throughout. No murmurs/rales/gallops. Respiratory: No respiratory distress. Painless inspiration. Breath sounds normal. No wheezes/rales/rhonchi noted. Chest nontender. No crepitus is noted. No signs of trauma noted. No accessory muscle usage noted or decreased air movement noted. No signs of trauma. Abdomen: Mild suprapubic tenderness with palpation, otherwise soft and the rest of the abdomen is nontender. Bowel sounds normal in all 4 quadrants. No distention noted. No organomegaly noted. No visible injury noted. Back: No CVA tenderness. Full range of motion noted. Nontender. No signs of trauma. Patient neuro intact bilaterally and distally on all 4 extremities. Patient's reflexes intact bilaterally and distally on all 4 extremities. No rashes/lesion/induration/fluctuance or signs of infection noted. Skin: Skin warm and dry. Normal skin color. Normal skin turgor. No rashes/lesions/lacerations noted. Extremities: 2+ pitting edema on the left lower extremity, scant edema on the right lower extremity. Bilateral calves are mildly tender with palpation, with no discrete mass, erythema, or edema. Negative Homans sign noted bilaterally. Extremities exhibit normal range of motion. Neuro: Oriented X 3. No motor deficit. No sensory deficit. Reflexes normal. Normal steady gait. No focal neuro deficits noted. CN's II-XII intact bilaterally? Vascular: + radial pulses/+ 2 distal pedal pulses/+2 dorsalis pedis b/l. Normal cap refill. No cyanosis noted to upper extremity nails and lower extremity toes nails. Course Course Course Narrative: 1500 This is a 80-year-old male, with a past medical history recurrent inguinal hernia with hernia repair in February 2021, presents to the emergency department with complaints of shortness of breath, productive cough, and back pain since yesterday. Patient reports that he developed shortness of breath and productive cough with associated back pain while watching television yesterday. 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 Denies any recent falls. No hx of blood clots, clotting disorders, recent travel or surgeries. Labs were obtained while the patient was in the waiting room and patient was noted to have an elevated D-dimer of 506. BUN 17. Random glucose 118. Otherwise all other labs including troponin and BNP negative. Patient negative for COVID. Therefore at this time will obtain EKG, Abdomen and pelvis CT, Chest CTA, venous duplex ultrasound of bilateral lower extremities. Will re-evaluate. Reevaluation(s) Reevaluation #1: - Chest x-ray within normal limits, no acute processes. - Venous duplex negative for DVT. - CT scan abdomen pelvis revealed chronic changes no acute processes they reported that the patient does have a Tiny phrygian cap?although patient does not have any epigastric/upper abdominal pain his pain is suprapubic/lower quadra nts therefore I do not believe a gallbladder ultrasound is indicated at this time. - although [facility] called me at this time and reported that patient has bilateral small pulmonary embolisms although no right heart strain. Therefore at this time pending PT/PTT/INR - a we attempted to admit the patient although patient is declining reports that he would rather sleep in his own bed especially if he can be sent home on p.o. anticoagulation with outpatient referrals he reports that he also has a PCP and will follow-up with the PCP/oncologist/stopper maker helper as an outpatient basis. And due to patient vital signs being within normal limits he is not hypoxic he does not have right heart strain and he has proper follow-up we can appropriately discharge him at this time with Eliquis. Patient understands to return if any new or worsening symptoms. Time: 16:46 MDM - SOB/Dyspnea Differential Diagnosis Differential diagnosis: Likely congestive heart failure, pneumonia, pulmonary embolism, pleural effusion, sleep apnea and anemia Medical Records Attestation: I reviewed the patient's medical records. Lab Data Attestation: I reviewed the patient's lab results. Result diagrams: 08/09/21 12:11 08/09/21 12:10 Labs: Lab Results 08/09/21 08/09/21 08/09/21 Range/Units 12:08 12:08 12:10 WBC (4.8-10.8) X10*3/uL RBC (4.60-5.80) X10*6/uL Hgb (14.0-18.0) g/dl Hct (42.0-52.0) % MCV (80.0-98.0) fL MCH (27.0-33.0) pg MCHC (31.0-36.0) g/dl RDW (11.0-16.0) % Plt Count (160-400) X10*3/uL MPV (9.4-12.4) fL Absolute Nucleated RBC (0.0-0.012) X10*3/uL Nucleated RBC % (auto) (0.0-0.2) /100WBC PT 12.3 (10.0-13.1) SEC INR 1.1 (0.9-1.1) D-Dimer High Sensitivty 506 NG/ML Sodium 140 (135-145) mmol/L Potassium 4.2 (3.3-5.1) mmol/L Chloride 108 (96-108) mmol/L Carbon Dioxide 24 (22-29) mmol/L Anion Gap 12 (12-20) BUN 17 H (9-16) mg/dL Creatinine 0.89 (0.5-1.4) mg/dL Estim Creat Clear Calc 88.9 Estimated GFR > 60 Random Glucose 118 H (60-115) mg/dL Calcium 8.9 (8.4-10.2) mg/dL Troponin I High Sens (<3.5-35.0) ng/L B-Natriuretic Peptide (<100) pg/mL Urine Color Urine Appearance Urine pH (5.0-8.0) Ur Specific [place] (1.005-1.025) Urine Protein (NEG-TRACE) MG/DL Urine Glucose (UA) (NEG) MG/DL Urine Ketones (NEG) MG/DL Urine Blood (NEG) Urine Nitrite (NEG) Ur Leukocyte Esterase (NEG) COVID-19 (JOSE) Negative (Negative) COVID-19 Clin Com See Note 08/09/21 08/09/21 08/09/21 Range/Units 12:11 12:11 16:53 WBC 7.9 (4.8-10.8) X10*3/uL RBC 4.84 (4.60-5.80) X10*6/uL Hgb 14.5 (14.0-18.0) g/dl Hct 43.1 (42.0-52.0) % MCV 89.0 (80.0-98.0) fL MCH 30.0 (27.0-33.0) pg MCHC 33.6 (31.0-36.0) g/dl RDW 12.6 (11.0-16.0) % Plt Count 216 (160-400) X10*3/uL MPV 9.8 (9.4-12.4) fL Absolute Nucleated RBC 0.000 (0.0-0.012) X10*3/uL Nucleated RBC % (auto) 0.0 (0.0-0.2) /100WBC PT (10.0-13.1) SEC INR (0.9-1.1) D-Dimer High Sensitivty NG/ML Sodium (135-145) mmol/L Potassium (3.3-5.1) mmol/L Chloride (96-108) mmol/L Carbon Dioxide (22-29) mmol/L Anion Gap (12-20) BUN (9-16) mg/dL Creatinine (0.5-1.4) mg/dL Estim Creat Clear Calc Estimated GFR Random Glucose (60-115) mg/dL Calcium (8.4-10.2) mg/dL Troponin I High Sens < 3.5 (<3.5-35.0) ng/L B-Natriuretic Peptide 90 (<100) pg/mL Urine Color YELLOW Urine Appearance CLEAR Urine pH 8.0 (5.0-8.0) Ur Specific [place] 1.010 (1.005-1.025) Urine Protein NEG (NEG-TRACE) MG/DL Urine Glucose (UA) NEG (NEG) MG/DL Urine Ketones NEG (NEG) MG/DL Urine Blood NEG (NEG) Urine Nitrite NEG (NEG) Ur Leukocyte Esterase NEG (NEG) COVID-19 (JOSE) (Negative) COVID-19 Clin Com Imaging Data Chest x-ray: Attestation: I personally reviewed and interpreted this imaging study as follows: Radiologist's impression: FINDINGS: Lungs grossly clear. Heart and pulmonary vessels are normal. No congestive change. XR/XR chest 1V IMPRESSION: No active disease. ? Venous US: Radiologist's impression: FINDINGS: RIGHT: There is normal venous compression and respiratory variation and augmented flow. The visualized common femoral vein, superficial femoral vein, profunda femoral vein, popliteal vein, and the trifurcation region shows no evidence of deep venous thrombosis. ? There is no significant popliteal fossa cyst. LEFT: There is normal venous compression and respiratory variation and augmented flow. The visualized common femoral vein, superficial femoral vein, profunda femoral vein, popliteal vein, and the trifurcation region shows no evidence of deep venous thrombosis. ? There is no significant popliteal fossa cyst. If the patient's symptoms persist, followup ultrasound in 5 days 7 days might be of value to exclude proximal propagation from a non-visualized calf vein. US/US venous duplex LE BI IMPRESSION: No DVT demonstrated in either lower extremity. CT scan abdomen pelvis with IV contrast: Attestation: I personally reviewed and interpreted this imaging study as follows: Radiologist's impression: FINDINGS: LUNG BASES: The visualized lung bases are unremarkable.? LIVER, GALLBLADDER, AND BILIARY TREE: The liver is normal in size, shape, and attenuation. No focal hepatic lesion or biliary ductal dilatation is present. The gallbladder is unremarkable aside from a small phrygian cap and some possible thickening at the gallbladder fundus. Similar findings were present previously. There is no evidence of radiopaque gallstones or obvious pericholecystic inflammatory changes.? PANCREAS: Unremarkable.? SPLEEN: Unremarkable.? ADRENAL GLANDS: Unremarkable.? KIDNEYS AND URETERS: The kidneys are normal in size, shape, and attenuation. There is a benign 6.6 cm Bosniak class I left lower pole renal cyst present which needs no further imaging or follow-up. No hydronephrosis, hydroureter, or calculi seen. No perinephric stranding. ? BLADDER: Empty. A small corner of the bladder is within a left direct inguinal hernia. GASTROINTESTINAL TRACT: The small and large bowel are unremarkable aside from colonic diverticular changes without diverticulitis.. The appendix is unremarkable.? ABDOMINAL WALL: There are bilateral small direct inguinal hernias seen containing fat on the right and a small portion of the bladder on the left. Identical findings were present previously. LYMPH NODES: No retroperitoneal lymphadenopathy. VASCULAR: Unremarkable. PELVIC VISCERA: There is moderate prostate enlargement. Seminal vesicles appear normal.? OSSEOUS STRUCTURES: Degenerative changes are present throughout the spine. No bony destructive lesions.? CT/CT abdomen pelvis w con IMPRESSION: 1.? Tiny phrygian cap with some mild thickening. Gallbladder ultrasound could be useful for further evaluation patient has right upper quadrant symptoms. 2.? Unchanged bilateral inguinal hernias containing a small portion of bladder on the left. 3.? Other incidental findings described above.? ? Fleischner guidelines were followed. CTA of chest for PE: Attestation: I personally reviewed and interpreted this imaging study as follows: Radiologist's impression: FINDINGS: QUALITY OF STUDY/CONTRAST BOLUS: Satisfactory. PULMONARY ARTERIES: Bilateral pulmonary emboli are present with segmental emboli in the right lower lobe as well as left upper.? THORACIC AORTA: No aneurysm or dissection. LUNG: A few scattered punctate granulomas are present. Bandlike left lower lobe atelectasis is seen. No focal consolidation, nodules or worrisome masses. PLEURA: No pleural effusion or pneumothorax. MEDIASTINUM: Normal heart size.? No pericardial effusion.? No hilar or mediastinal lymphadenopathy.? No evidence of septal bowing or right heart strain. CHEST WALL/AXILLA: No axillary or internal mammary lymphadenopathy. OSSEOUS STRUCTURES: No acute or suspicious osseous abnormality. Mild degenerative changes are noted in the spine. UPPER ABDOMEN: See abdominal CT report same day? No reflux of contrast into the hepatic veins to suggest elevated right heart pressures. CT/CT angio chest PE protocol IMPRESSION: Bilateral small segmental pulmonary emboli with no evidence of right heart strain ? VTE: Positive ? This critical result was discussed with Anushka owens at 4:50 PM on the day the exam and it was ascertained that the content and urgency of the report was understood at the time of direct communication. ECG Data Attestation: I personally reviewed and interpreted this ECG as follows: ECG interpretation date: 08/09/21 ECG interpretation time: 11:54 Prior ECG tracings: available for review Interpretation: EKG is sinus rhythm with first-degree AV block, right bundle branch block, left anterior fascicular block, at a rate of 66 beats per minute, WI interval 236ms, QT 424ms, QTC 444ms. No ST elevation. No acute ischemic changes. Will No significant changes from previous EKG performed on 02/07/2019. Critical Care Time Critical Care Time Critical Care Time: Yes Total Critical Care Time: 60 Attestation: I personally attest to this time spent taking care of the patient Discharge Plan Discharge Clinical Impression: Pulmonary embolism Patient Disposition: Home, Self-Care Instructions: Blood Thinners (ED) Additional Instructions: You have a blood clot in both of your lungs. You need to follow-up with hematology/oncology so they can not rule out a cause of your blood clot due to blood clots usually occur with long surgeries greater than 6 hours, travel greater than 6 hours, or history of blood clots in the past or cancer. We are not seeing you have cancer today although you need to be further evaluated for cancer. Return if any new or worsening symptoms. Take your blood thinners as prescribed if you have any new or worsening symptoms such as dizziness, worsening shortness of breath or chest pain you need to return immediately. Prescriptions: New Eliquis 5 mg tablet 5 mg PO BID Qty: 90 0RF Rx Instructions: Take 2 tablets (10 mg) twice a day for 7 days then 5 mg once a day and to instructed by PCP/oncologist/stopper maker helper No Action oxycodone-acetaminophen [Percocet] 5-325 mg tablet 1 tab PO Q4-6H PRN (Reason: pain) Qty: 30 0RF Rx Instructions: do not take tramadol if taking this medication ibuprofen 600 mg tablet 600 mg PO Q6H PRN (Reason: pain) Qty: 30 0RF lisinopril 40 mg tablet 40 mg PO DAILY metoprolol succinate 100 mg tablet extended release 24 hr 100 mg PO DAILY fluticasone propionate 50 mcg/actuation spray,suspension 2 spray intranasal DAILY aspirin 81 mg tablet,delayed release (DR/EC) 81 mg PO DAILY omeprazole 20 mg capsule,delayed release(DR/EC) 20 mg PO DAILY polyvinyl alcohol 1.4 % drops 0 drp ophthalmic (eye) DIRECTED metoprolol succinate 25 mg tablet extended release 24 hr 25 mg PO DAILY tramadol 50 mg tablet 50 mg PO Q6H MDD 8 tablets PRN (Reason: pain) Qty: 30 0RF Referrals: Mathew Quarles MD [Primary Care Provider] - 1 day Kolby Rivera MD [Physician] - 1 day (Call tomorrow to make an appointment within the next week) Interventions: ED Discharge Assessment Last Done: 08/09/21 17:44 Discharge Date/Time: 08/09/21 17:45 Print Language: Congolese
[2021-08-09 16:24] VITALS: BP 152/91; PULSE 59; RESP 18; TEMP 36.4; O2SAT 98
[2021-08-09 17:09] LABS: Appearance Urine CLEAR; Color Urine YELLOW; Glucose Urine UA NEG (NEG); Leukocyte Esterase Urine NEG (NEG); Nitrite Urine NEG (NEG); Urine Blood NEG (NEG); Urine Ketones NEG (NEG); Urine Protein NEG (NEG-TRACE)
[2021-08-09 17:14] LABS: INTERNATIONAL NORM RATIO 1.1 (0.9-1.1); Prothrombin Time 12.3 SEC (10.0-13.1)
[2021-08-09] MEDS: Apixaban 5 MG TABLET 10 MG PO (17:41)
[2021-08-09 17:58] LABS: RBC Urine 0 /HPF (0); Squamous Epithelial Cell Urine TRACE /LPF; WBC Urine 0 /HPF (0-4)
== END 2021-08-09 17:45 | disposition home or self-care (01) ==
PROVIDERS: Physician Assistant Medical; Emergency Provider Emergency Medicine; PCP Internal Medicine
DX: I26.99 Other pulmonary embolism without acute cor pulmonale (principal); R06.02 Shortness of breath; M54.50 Low back pain, unspecified; R05.9 Cough, unspecified; Z20.822 Contact with and (suspected) exposure to COVID-19; Z79.899 Other long term (current) drug therapy; Z79.82 Long term (current) use of aspirin
CPT/HCPCS: 36415; 71045; 71275; 74177; 80048; 81001; 83880; 84484; 85027; 85379; 85610; 87635; 93005; 93970; 99284; 99285; Q9967

== ENCOUNTER → 2021-08-19 14:27 | Outpatient (BNV) | payer MEDICARE, MEDICAID, SELFPAY | PROVIDERS: PCP Internal Medicine; Visit Provider Internal Medicine Medical Oncology | DX: I26.99 Other pulmonary embolism without acute cor pulmonale (principal) | CPT/HCPCS: 99204; 99213 ==

== ENCOUNTER 2021-10-17 07:44 | Outpatient (REF) | payer MEDICARE, MEDICAID, SELFPAY ==
--- NOTE | ~2021-10-17 | US_ITS ---
EXAMINATION: US RETROPERITONEAL LIMITED (RENAL ONLY) CLINICAL INFORMATION: Cyst of kidney, acquired. COMPARISON: CT abdomen and pelvis with contrast 08/09/2021. Ultrasound retroperitoneal limited (renal only) 09/01/2020. Ultrasound retroperitoneal complete (renal) 12/23/2013. TECHNIQUE: Real-time imaging of the kidneys. FINDINGS: RIGHT KIDNEY: 12.4 x 5.3 x 5.8 cm (SAG x AP x TRV). The kidney is normal in size, contour, and echogenicity. Renal cortical thickness is normal. No calculi or focal parenchymal lesions. No hydronephrosis. LEFT KIDNEY: 13.0 x 5.6 x 4.5 cm (SAG x AP x TRV). The kidney is normal in size, contour, and echogenicity. Renal cortical thickness is normal. There is a 7.2 x 5 x 5.8 cm minimally complex cyst in the lower pole with several thin septations. This measured 7.4 x 4.3 x 5.3 cm on previous exam does not appear appreciably changed. No renal calculi or hydronephrosis. US/US renal BI IMPRESSION: Stable left renal cyst..
== END 2021-10-17 07:45 | disposition home or self-care (01) ==
LOC: HO.US 07:44
PROVIDERS: Visit Provider Urology
DX: N28.1 Cyst of kidney, acquired (principal)
CPT/HCPCS: 76775

== ENCOUNTER 2021-12-07 15:47 | Outpatient (REF) | payer MEDICARE, MEDICAID, SELFPAY ==
--- NOTE | 2021-12-07 | EMG_ITS ---
Please see scanned EMG / Nerve Conduction Report. MTDD
== END 2021-12-07 15:48 | disposition home or self-care (01) ==
LOC: HO.NEURO 15:47
PROVIDERS: Visit Provider Internal Medicine
DX: R20.2 Paresthesia of skin (principal)
CPT/HCPCS: 95885; 95910

== ENCOUNTER → 2021-12-15 13:31 | Outpatient (BNVA) | payer MEDICARE, MEDICAID, SELFPAY | PROVIDERS: PCP Internal Medicine; Visit Provider Urology | DX: N40.0 Benign prostatic hyperplasia without lower urinary tract symptoms (principal); N28.1 Cyst of kidney, acquired; K40.91 Unilateral inguinal hernia, without obstruction or gangrene, recurrent | CPT/HCPCS: 51798; 99212 ==

== ENCOUNTER → 2021-12-21 11:07 | Outpatient (BNVA) | payer MEDICARE, MEDICAID, SELFPAY | PROVIDERS: PCP Internal Medicine; Visit Provider Surgery | DX: R10.32 Left lower quadrant pain (principal) | CPT/HCPCS: 99212 ==

== ENCOUNTER 2021-12-22 14:04 | Outpatient (REF) | payer MEDICARE, MEDICAID, SELFPAY ==
--- NOTE | ~2021-12-22 | CT_ITS ---
EXAMINATION: CT HEAD WITHOUT CONTRAST CLINICAL INFORMATION: Syncope and collapse. COMPARISON: Head CT from 02/19/2013. TECHNIQUE: Contiguous axial imaging was performed from the skull base to vertex without intravenous administration of contrast. This CT examination was performed using dose optimization techniques as appropriate, variously including the following: *Automated exposure control *Adjustment of mA and/or kV according to patient size (this includes techniques or standardized protocols for targeted exams where dose is matched to indication/reason for exam; i.e. extremities or head) *Use of iterative reconstruction technique DLP: 922 mGy-cm. FINDINGS: There is no evidence of acute intracranial hemorrhage or territorial infarction. No abnormal mass effect or midline shift is seen. Valle to white matter differentiation is well preserved. No extra-axial fluid collections are identified. The ventricles are normal in size with a cavum septum pellucidum. Mild patchy areas of low-attenuation change may be due to chronic microangiopathy. The osseous structures and soft tissues are normal. The mastoid air cells are well aerated. Mild ethmoid and maxillary sinus mucosal thickening noted. CT/CT head/brain wo IV con IMPRESSION: No acute intracranial hemorrhage or territorial infarction. Mild chronic white matter microangiopathy.
== END 2021-12-22 14:05 | disposition home or self-care (01) ==
LOC: HO.CT 14:04
PROVIDERS: PCP Internal Medicine; Visit Provider Internal Medicine
DX: R55 Syncope and collapse (principal)
CPT/HCPCS: 70450

== ENCOUNTER 2022-01-05 12:49 | Outpatient (REF) | payer MEDICARE, MEDICAID, SELFPAY ==
--- NOTE | ~2022-01-05 | CT_ITS ---
EXAMINATION: CT ABDOMEN AND PELVIS WITHOUT CONTRAST CLINICAL INFORMATION: Left lower quadrant pain. COMPARISON: None TECHNIQUE: Multidetector volumetric imaging was performed from the superior aspect of the liver through the pubic symphysis. Sagittal and coronal reformatted images were obtained on the technologist's workstation. This CT examination was performed using dose optimization techniques as appropriate, variously including the following: *Automated exposure control *Adjustment of mA and/or kV according to patient size (this includes techniques or standardized protocols for targeted exams where dose is matched to indication/reason for exam; i.e. extremities or head) *Use of iterative reconstruction technique DLP: 606 mGy-cm. FINDINGS: LUNG BASES: There is mild atelectatic changes in the left lung base. Heart size is normal. LIVER, GALLBLADDER, AND BILIARY TREE: The liver is normal in size, shape, and attenuation. No focal hepatic lesion or biliary ductal dilatation is present. The gallbladder is unremarkable with no evidence of radiopaque gallstones, gallbladder wall thickening, or obvious pericholecystic inflammatory changes. PANCREAS: The pancreas is unremarkable. SPLEEN: Unremarkable. ADRENAL GLANDS: Unremarkable. KIDNEYS AND URETERS: The kidneys are normal in size, shape, and attenuation. No hydronephrosis, hydroureter, or calculi seen. There is mild bilateral perinephric stranding. There is a hypodense exophytic cyst lower pole left kidney measuring 6.2 x 4.3 x 6.70 cm. BLADDER: The bladder is decompressed with extension of left anterior bladder wall within the left inguinal hernia. GASTROINTESTINAL TRACT: Scattered stool, diverticula and gas is seen throughout the colon without distention or diverticulitis. The small bowel loops are normal caliber. Appendix is not visualized. No free air or free fluid seen. ABDOMINAL WALL: There are bilateral inguinal hernias with the left inguinal hernia containing a loop of bladder wall. The right inguinal hernias contain intraperitoneal fat. LYMPH NODES: Normal. VASCULAR: Unremarkable. PELVIC VISCERA: The prostate gland is normal size. The periprostatic fat borders are preserved. No abnormal size pelvic or inguinal lymph nodes seen. OSSEOUS STRUCTURES: There are degenerative disc changes with ventral spondylosis L1-L2, L3-4, L4-L5 and L5-S1 disc levels. No aggressive lytic or sclerotic process seen. CT/CT abdomen pelvis wo IV con IMPRESSION: Bilateral inguinal hernias with the left femoral hernia containing a loop of bladder wall. The right inguinal hernia contains intraperitoneal fat. Colonic diverticulosis without diverticulitis. Mild constipation. Exophytic cyst lower pole left kidney. Fleischner guidelines were followed.
== END 2022-01-05 12:50 | disposition home or self-care (01) ==
LOC: HO.CT 12:49
PROVIDERS: Visit Provider Surgery
DX: R10.32 Left lower quadrant pain (principal)
CPT/HCPCS: 74176

== ENCOUNTER → 2022-01-11 13:00 | Outpatient (BNVA) | payer MEDICARE, MEDICAID, SELFPAY | PROVIDERS: PCP Internal Medicine; Visit Provider Surgery | DX: R10.32 Left lower quadrant pain (principal) | CPT/HCPCS: 99212 ==

== ENCOUNTER 2022-02-08 13:27 | Outpatient (REF) | payer MEDICARE, MEDICAID, SELFPAY ==
[2022-02-08 14:49] LABS: Syphilis Screen Reactive (Nonreactive)
[2022-02-08 14:54] LABS: Vitamin B12 590 pg/mL (200-900)
[2022-02-09 09:23] LABS: Lyme Abs Screen <0.90 index
[2022-02-14 11:04] LABS: RPR Quantitative Reactive 1:1 (Nonreactive); T.Pallidum Particle Agg Test Reactive (Nonreactive)
== END 2022-02-08 13:28 | disposition home or self-care (01) ==
LOC: HO.LAB 13:27
PROVIDERS: PCP Internal Medicine; Visit Provider Psychiatry & Neurology Neurology
DX: G30.9 Alzheimer's disease, unspecified (principal)
CPT/HCPCS: 36415; 82607; 86592; 86617; 86618; 86780

== ENCOUNTER 2022-06-27 12:36 | Outpatient (REF) | payer MEDICARE, MEDICAID, SELFPAY ==
[2022-06-27 15:42] LABS: Lipase 27 U/L (8-78)
[2022-06-27 16:16] LABS: Vitamin B12 684 pg/mL (200-900)
[2022-07-04 13:49] LABS: Transglutaminase Ab IgG <1.0 U/mL; Transglutaminase IgA <1.0 U/mL
[2022-07-04 15:28] LABS: Vitamin D 25-OH, D2 <4 ng/mL; Vitamin D 25-OH, D3 30 ng/mL; Vitamin D 25-OH, Total 30 ng/mL (30-100)
== END 2022-06-27 12:37 | disposition home or self-care (01) ==
LOC: HO.LAB 12:36
PROVIDERS: PCP Internal Medicine; Visit Provider Nurse Practitioner Family
DX: R10.13 Epigastric pain (principal); R19.7 Diarrhea, unspecified; E55.9 Vitamin D deficiency, unspecified; R14.0 Abdominal distension (gaseous); K21.9 Gastro-esophageal reflux disease without esophagitis
CPT/HCPCS: 36415; 82306; 82607; 82746; 83690; 86364; 99202

== ENCOUNTER 2022-06-28 15:25 | Outpatient (REF) | payer MEDICARE, MEDICAID, SELFPAY ==
[2022-07-10 17:48] LABS: Pancreatic Elastase-1 >500 mcg/g
== END 2022-06-28 15:26 | disposition home or self-care (01) ==
LOC: HO.LNP 15:25
PROVIDERS: Visit Provider Nurse Practitioner Family
DX: R10.9 Unspecified abdominal pain (principal); K21.9 Gastro-esophageal reflux disease without esophagitis
CPT/HCPCS: 82656; 87338

== ENCOUNTER 2022-08-28 12:53 | Outpatient (AMB) | payer MEDICARE, MEDICAID, SELFPAY ==
[2022-08-28 12:58] VITALS: BMI 30.2
--- NOTE | 2022-08-28 12:58 | MHC.OFFVIS ---
Intake Vital Signs 08/28/22 12:58 Height 6 ft 2 in Weight 235 lb BMI 30.2 Intake Visit Reasons: 2 month fu Intake Note: Edgar presents in the office today in 2 months follow up. CC: He states he continues to have bloating and rumbling. Denies other Gi symptoms. 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 Low FODMAP diet discussed with patient.? List of food recommended as well as list of food to avoid given to patient.? Will send a script for [facility].? Patient will take before eating (2) IBS (irritable bowel syndrome): ?Code(s): K58.9 - Irritable bowel syndrome without diarrhea ?Qualifiers: ?Irritable bowel syndrome type:?without diarrhea? Qualified Code(s):?K58.9 - Irritable bowel syndrome without diarrhea ?Plan: Discussed with patient low FODMAP diet.? Patient states that he has bloated and occasional cramping.? Usually in the left lower quadrant, however he does report when he is bloated he has epigastric discomfort.? I will send him to rule out pancreatic insufficiency, pancreatitis, celiac disease.? Will check her H pylori, will check vitamin B12, folate, vitamin-D level. (3) Epigastric discomfort: ?Code(s): R10.13 - Epigastric pain ?Plan: Patient reports that he has been taking omeprazole, however he feels like it has not helped him.? Reports epigastric discomfort postprandially.? Discussed with patient avoiding dietary triggers and late night snacking.? I will start her on pantoprazole in the morning half an hour before breakfast and he can take famotidine at bedtime. (4) GERD (gastroesophageal reflux disease): ?Code(s): K21.9 - Gastro-esophageal reflux disease without esophagitis ?Qualifiers: ?Esophagitis presence:?esophagitis presence not specified? Qualified Code(s):?K21.9 - Gastro-esophageal reflux disease without esophagitis ?Plan: Discuss with patient and stressed the importance of avoiding dietary triggers.? Pantoprazole and famotidine as mentioned above.? Will rule out H pylori and treat empirically if positive.? I will see patient in 2 months, sooner on as needed basis.? Patient is agreeable to this plan and verbalizes understanding of instructions.? He was given the opportunity to ask questions and all questions answered.? TODAY'S VISIT: Patient is here today for follow-up and to discuss lab results. Patient had normal blood work. Stool showed no H pylori. No pancreatic insufficiency. Patient continues to have occasional postprandial abdominal bloating. Patient states that he is using simethicone, no longer is using MiraLax. Patient states that he is taking lactulose that he was given script for back in July. Patient states that he is not having bowels every day. Mostly his bowels are lose when he does have a bowel movement. Patient denies melena, hematochezia, unintentional weight loss or ribbon like stools. Patient reports occasional dyspepsia without dysphagia or odynophagia. Patient states that he did not changed any thing in his diet. He eats beans due to his culture and is not willing to give up completely. Patient does admit to be eating lot of junk food in between his meals. Patient does reports to be eating late at night. Patient is taking pantoprazole in the morning and famotidine at bedtime and states that his symptoms have improved somewhat. [facility] Medical History BPH (benign prostatic hyperplasia) COVID-19 vaccine series completed Epidermal cyst GERD (gastroesophageal reflux disease) HTN (hypertension) Left groin pain Lower abdominal pain Recurrent inguinal hernia Surgical History H/O colonoscopy History of hernia surgery History of hernia surgery History of left inguinal hernia repair History of removal of cyst History of removal of cyst Hx of cystoscopy Hx of transurethral resection of prostate Hx of varicose vein ligation and stripping Family History Sister Breast cancer Social History Household Members: Spouse Housing: House Are you a primary rn patient care to a significant other at home: No Do you presently have visiting nurse or other home services: No Alcohol intake: never Patient Tobacco Use Status: Never used Tobacco service: No Current occupational status: retired Review of Systems Const Denies weight gain and Denies weight loss ENT Reports no additional complaints, Denies dysphagia and Denies odynophagia Card Reports no additional complaints Resp Reports no additional complaints GI Denies abdominal pain, Denies belching, Denies melena, Reports bloating, Denies change in bowel habits, Denies dysphagia, Denies excessive flatus, Denies dyspepsia, Reports heartburn, Denies diarrhea, Denies loose stools, Denies nausea, Denies odynophagia and Denies vomiting Reports no additional complaints Musc Reports no additional complaints Neuro Reports no additional complaints Psych Reports no additional complaints Endo Reports no additional complaints Physical Exam Vital Signs: BMI result Body Mass Index 30.2 Const General: healthy appearing, no acute distress and well developed Nutritional Appearance: obese Orientation/consciousness: patient oriented x3 HEENT Head: Yes normal to inspection, Yes normocephalic and Yes atraumatic Face and sinus: Yes normal facial exam Mouth: Normal oral and palatal mucosa present Throat: Yes posterior oropharynx normal, Yes tonsils normal and Yes uvula midline Eyes General: appearance normal, both eyes and all related structures Neck Neck: Yes normal visual inspection, Yes full ROM and Yes trachea midline Thyroid: Thyroid normal Resp Effort & Inspection: normal respiratory effort, able to speak in complete sentences, no tracheal deviation and symmetric chest movement Auscultation: clear to auscultation bilaterally Cardio Rate: regular rate Heart sounds: S1 normal heart sound present and S2 normal heart sound present GI Inspection: Yes normal to inspection, No distended and Yes obesity Palpation (GI): Soft to palpation, not firm, nontender and No hepatosplenomegaly present Auscultation: Hyperactive bowel sounds present General: Yes no CVA tenderness Back/Spine/Pelvis Back: no CVA tenderness Skin General skin exam: elasticity normal, turgor normal and dry skin Neuro General: patient oriented x3 Psych Appearance: grossly normal Mental Status: mental status grossly normal Speech and movement: Normal speech and movement present Affect: normal affect Results Reviewed Results Reviewed: Laboratory Tests 06/27/22 06/27/22 06/27/22 14:25 14:25 14:25 Lipase 27 Vitamin B12 684 25-OH Vitamin D Total 30 Folate 17.0 Stool Pancreat Elastase Tiss Transglutamin IgG <1.0 Tiss Transglutamin IgA <1.0 06/28/22 21:00 Lipase Vitamin B12 25-OH Vitamin D Total Folate Stool Pancreat Elastase >500 Tiss Transglutamin IgG Tiss Transglutamin IgA Assessment & Plan Assessment & Plan (1) Postprandial abdominal bloating: Code(s): R14.0 - Abdominal distension (gaseous) Plan: Postprandial abdominal bloating. Patient will try to follow low FODMAP diet and be more strict. He will stop eating junk food (2) IBS (irritable bowel syndrome): Code(s): K58.9 - Irritable bowel syndrome without diarrhea Qualifiers: Irritable bowel syndrome type: with both diarrhea and constipation Qualified Code(s): K58.2 - Mixed irritable bowel syndrome Plan: Postprandial abdominal bloating. Patient denies abdominal pain or discomfort at this time. Continues to have occasionally loose stools but then no bowel movement for couple days. Will change his prescription and start him on Linzess. (3) Epigastric discomfort: Code(s): R10.13 - Epigastric pain Plan: Patient reports feeling better after starting pantoprazole and famotidine. However he does admit that he will occasionally have epigastric pain if he eats too much. Encouraged patient to avoid dietary triggers. Patient's lab results discussed with him. (4) GERD (gastroesophageal reflux disease): Code(s): K21.9 - Gastro-esophageal reflux disease without esophagitis Qualifiers: Esophagitis presence: esophagitis presence not specified Qualified Code(s): K21.9 - Gastro-esophageal reflux disease without esophagitis Plan: Patient reports symptoms better with pantoprazole and famotidine. Discussed with patient avoiding dietary triggers and late night snacking. Staying upright for minimal 3 hours after meals discussed with patient. I will see him in 5 weeks, sooner on as needed basis. If patient will continue to have symptoms recommend upper endoscopy. Patient is agreeable to plan of care and verbalized understanding of instructions. He was given the opportunity to ask questions and all questions answered. 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
== END 2022-08-28 13:29 | disposition home or self-care (01) ==
PROVIDERS: PCP Internal Medicine; Visit Provider Nurse Practitioner Family
DX: R14.0 Abdominal distension (gaseous) (principal); K58.2 Mixed irritable bowel syndrome; R10.13 Epigastric pain; K21.9 Gastro-esophageal reflux disease without esophagitis
CPT/HCPCS: 99214

== ENCOUNTER → 2022-08-28 12:53 | Outpatient (BNVA) | payer MEDICARE, MEDICAID, SELFPAY | PROVIDERS: PCP Internal Medicine; Visit Provider Nurse Practitioner Family | DX: K58.2 Mixed irritable bowel syndrome (principal); K21.9 Gastro-esophageal reflux disease without esophagitis; R14.0 Abdominal distension (gaseous); R10.13 Epigastric pain | CPT/HCPCS: 99212 ==

== ENCOUNTER 2022-10-02 12:53 | Outpatient (AMB) | payer MEDICARE, MEDICAID, SELFPAY ==
--- NOTE | 2022-10-02 13:08 | MHC.OFFVIS ---
Intake Vital Signs 10/02/22 13:10 Height 6 ft 2 in Weight 230 lb BMI 29.5 BP 136/85 Blood Pressure Location Lt brachial Position Sitting Pulse 60 Intake Visit Reasons: 5 week f/u gastric pain abdominal bloading Intake Note: Edgar presents in office as a est.patient for a 5 week f/u gastric pain abdominal bloading PT CC: pt reports having gastric pain , abdominal bloating , pt denies any other GI Issues Relationship Banker Required: No Accompanied by: Self / Same As Patient Allergies No Known Allergies [No Known Allergies*] Allergy (Verified 10/02/22 13:09) HPI 5 week f/u gastric pain abdominal bloading HPI Details LAST VISIT (1) Postprandial abdominal bloating: ?Code(s): R14.0 - Abdominal distension (gaseous) ?Plan: Postprandial abdominal bloating.? Patient will try to follow low FODMAP diet and be more strict.? He will stop eating junk food (2) IBS (irritable bowel syndrome): ?Code(s): K58.9 - Irritable bowel syndrome without diarrhea ?Qualifiers: ?Irritable bowel syndrome type:?with both diarrhea and constipation? Qualified Code(s):?K58.2 - Mixed irritable bowel syndrome ?Plan: Postprandial abdominal bloating.? Patient denies abdominal pain or discomfort at this time.? Continues to have occasionally loose stools but then no bowel movement for couple days.? Will change his prescription and start him on Linzess. (3) Epigastric discomfort: ?Code(s): R10.13 - Epigastric pain ?Plan: Patient reports feeling better after starting pantoprazole and famotidine.? However he does admit that he will occasionally have epigastric pain if he eats too much.? Encouraged patient to avoid dietary triggers.? Patient's lab results discussed with him. (4) GERD (gastroesophageal reflux disease): ?Code(s): K21.9 - Gastro-esophageal reflux disease without esophagitis ?Qualifiers: ?Esophagitis presence:?esophagitis presence not specified? Qualified Code(s):?K21.9 - Gastro-esophageal reflux disease without esophagitis ?Plan: Patient reports symptoms better with pantoprazole and famotidine.? Discussed with patient avoiding dietary triggers and late night snacking.? Staying upright for minimal 3 hours after meals discussed with patient.? I will see him in 5 weeks, sooner on as needed basis.? If patient will continue to have symptoms recommend upper endoscopy.? Patient is agreeable to plan of care and verbalized understanding of instructions.? He was given the opportunity to ask questions and all questions answered. Thank you for allowing me to participate in his care TODAY'S VISIT: Patient is here today for follow-up. Patient reports that he is feeling better after pantoprazole and famotidine. His symptoms of acid reflux and dyspepsia are gone. Patient denies dysphagia or odynophagia. However patient reports that he continues to have postprandial abdominal bloating. Patient feels very gassy. Reports that he moves his bowels little better, however he can not take Linzess every day because he has loose stools. Patient reports that sometimes he will have a bowel movement and sometimes no BM for 2-3 days. Patient states that he is drinking plenty fluids. Stopped she eating large meals. Decreased how much beans he eats. Patient denies melena, hematochezia, unintentional weight loss of an like stools. Patient denies any diarrhea. Denies any known nausea or vomiting. Denies abdominal pain or discomfort. Last colonoscopy in 2019, one small tubular adenoma found. Patient's colonoscopist at [facility] stated that this with probably his last colonoscopy. [facility] Medical History BPH (benign prostatic hyperplasia) COVID-19 vaccine series completed Epidermal cyst GERD (gastroesophageal reflux disease) HTN (hypertension) Left groin pain Lower abdominal pain Recurrent inguinal hernia Surgical History H/O colonoscopy History of hernia surgery History of hernia surgery History of left inguinal hernia repair History of removal of cyst History of removal of cyst Hx of cystoscopy Hx of transurethral resection of prostate Hx of varicose vein ligation and stripping Family History Sister Breast cancer Social History Household Members: Spouse Housing: House Are you a primary career developer to a significant other at home: No Do you presently have visiting nurse or other home services: No Alcohol intake: never Patient Tobacco Use Status: Never used Tobacco service: No Current occupational status: retired Review of Systems Const Denies weight gain and Denies weight loss ENT Reports no additional complaints, Denies dysphagia and Denies odynophagia Card Reports no additional complaints Resp Reports no additional complaints GI Denies abdominal pain, Denies belching, Denies melena, Reports bloating, Reports constipation, Denies dysphagia, Denies excessive flatus, Denies dyspepsia, Denies heartburn, Denies diarrhea, Denies loose stools, Denies nausea, Denies odynophagia and Denies vomiting Reports no additional complaints Musc Reports no additional complaints Neuro Reports no additional complaints Psych Reports no additional complaints Endo Reports no additional complaints Physical Exam Vital Signs: Last Vital Signs Pulse 60 10/02/22 13:10 BP 136/85 10/02/22 13:10 BMI result Body Mass Index 29.5 Const General: healthy appearing, no acute distress and well developed Nutritional Appearance: obese Orientation/consciousness: patient oriented x3 HEENT Head: Yes normal to inspection, Yes normocephalic and Yes atraumatic Face and sinus: Yes normal facial exam Mouth: Normal oral and palatal mucosa present Throat: Yes posterior oropharynx normal, Yes tonsils normal and Yes uvula midline Eyes General: appearance normal, both eyes and all related structures Neck Neck: Yes normal visual inspection, Yes full ROM and Yes trachea midline Thyroid: Thyroid normal Resp Effort & Inspection: normal respiratory effort, able to speak in complete sentences, no tracheal deviation and symmetric chest movement Auscultation: clear to auscultation bilaterally Cardio Rate: regular rate Heart sounds: S1 normal heart sound present and S2 normal heart sound present GI Inspection: Yes normal to inspection, No distended and Yes obesity Palpation (GI): Soft to palpation, not firm, nontender and No hepatosplenomegaly present Auscultation: normal bowel sounds General: Yes no CVA tenderness Back/Spine/Pelvis Back: no CVA tenderness Skin General skin exam: elasticity normal, turgor normal and dry skin Neuro General: patient oriented x3 Psych Appearance: grossly normal Mental Status: mental status grossly normal Speech and movement: Normal speech and movement present Assessment & Plan Assessment & Plan (1) Postprandial abdominal bloating: Code(s): R14.0 - Abdominal distension (gaseous) Plan: Patient continues with postprandial abdominal bloating. Patient can take Creon and see if that will help. Discussed with patient also avoiding dietary triggers. Low FODMAP diet discussed with him (2) IBS (irritable bowel syndrome): Code(s): K58.9 - Irritable bowel syndrome without diarrhea Qualifiers: Irritable bowel syndrome type: without diarrhea Qualified Code(s): K58.9 - Irritable bowel syndrome without diarrhea Plan: Postprandial abdominal bloating. Patient denies any abdominal pain or discomfort. Does report to be constipated little bit. Will have patient start Colace every evening. Stop Linzess (3) Epigastric discomfort: Code(s): R10.13 - Epigastric pain Plan: Reports that occasional epigastric discomfort. Continue to avoid dietary triggers in late night snacking. Staying upright for minimal 3 hours after meals discussed with patient. Patient can continue famotidine at bedtime and pantoprazole in the morning. (4) GERD (gastroesophageal reflux disease): Code(s): K21.9 - Gastro-esophageal reflux disease without esophagitis Qualifiers: Esophagitis presence: esophagitis presence not specified Qualified Code(s): K21.9 - Gastro-esophageal reflux disease without esophagitis Plan: Continue PPI and H2 dorina as mentioned above. Continue avoiding dietary triggers. I will see patient in 6 weeks, sooner on as needed basis. Patient is agreeable to this plan and verbalizes understanding of instructions. He was given the opportunity to ask questions and all questions answered. Thank you for allowing me to participate in his care Medications: New [id number] 24,000-76,000 -120,000 unit (Creon) administer with meals and/or snacks 1 cap PO QID 120 caps 3RF K86.89 - Other specified diseases of pancreas bisacodyl (Dulcolax (bisacodyl)) 10 mg (2 x 5 mg) PO BEDTIME 180 tabs 4RF Refilled famotidine 40 mg PO BEDTIME 90 tabs 3RF K21.9 - Gastro-esophageal reflux disease without esophagitis simethicone (Gas Relief (simethicone)) 125 mg PO TID-QID PRN 120 caps 2RF abdominal distention Discontinued apixaban Take 2 tablets (10 mg) twice a day for 7 days then 5 mg once a day and to instructed by PCP/oncologist/mechanical equipment test engineer 5 mg PO BID 90 tabs 0RF Pulmonary embolism pantoprazole take one tablet half an hour before breakfast Discontinued Reason: Doctor's Order 40 mg PO DAILY 30 tabs 2RF K21.9 - Gastro-esophageal reflux disease without esophagitis linaclotide (Linzess) Discontinued Reason: Doctor's Order 145 mcg PO DAILY 30 caps 2RF Coding Level of Care Code Tele Est Pt Level 4 (96831) Diagnoses Postprandial abdominal bloating R14.0 IBS (irritable bowel syndrome) K58.9 Irritable bowel syndrome type: without diarrhea Epigastric discomfort R10.13 GERD (gastroesophageal reflux disease) K21.9 Esophagitis presence: esophagitis presence not specified Time Spent (min) 35 Comment 20 minutes spent with patient and additional 15 minutes spent reviewing her records
[2022-10-02 13:10] VITALS: BP 136/85; PULSE 60; BMI 29.5
== END 2022-10-02 13:44 | disposition home or self-care (01) ==
PROVIDERS: PCP Internal Medicine; Visit Provider Nurse Practitioner Family
DX: R14.0 Abdominal distension (gaseous) (principal); K58.9 Irritable bowel syndrome, unspecified; R10.13 Epigastric pain; K21.9 Gastro-esophageal reflux disease without esophagitis
CPT/HCPCS: 99214

== ENCOUNTER → 2022-10-02 12:53 | Outpatient (BNVA) | payer MEDICARE, MEDICAID, SELFPAY | PROVIDERS: PCP Internal Medicine; Visit Provider Nurse Practitioner Family | DX: K58.9 Irritable bowel syndrome, unspecified (principal); R14.0 Abdominal distension (gaseous); R10.13 Epigastric pain; K21.9 Gastro-esophageal reflux disease without esophagitis; Z79.899 Other long term (current) drug therapy | CPT/HCPCS: 99212 ==

== ENCOUNTER 2022-11-14 12:50 | Outpatient (AMB) | payer MEDICARE, MEDICAID, SELFPAY ==
--- NOTE | 2022-11-14 12:52 | A.OFFVIS_ITS ---
Intake Vital Signs 11/14/22 12:56 Height 6 ft 2 in Weight 230 lb BMI 29.5 BP 162/91 H Blood Pressure Location Lt brachial Position Sitting Pulse 65 Intake Visit Reasons: 6 weeks GERD Intake Note: Edgar presents in the office as a 6 week for GERD. CC: He states that he is not having any concerns today! Duplex Trimmer Required: No Allergies No Known Allergies [No Known Allergies*] Allergy (Verified 11/21/22 15:00) HPI 6 weeks GERD HPI Details LAST VISIT: Postprandial abdominal bloating Patient continues with postprandial abdominal bloating. Patient can take Creon and see if that will help. Discussed with patient also avoiding dietary triggers. Low FODMAP diet discussed with him IBS (irritable bowel syndrome) Postprandial abdominal bloating. Patient denies any abdominal pain or discomfort. Does report to be constipated little bit. Will have patient start Colace every evening. Stop Linzess Epigastric discomfort Reports that occasional epigastric discomfort. Continue to avoid dietary triggers in late night snacking. Staying upright for minimal 3 hours after meals discussed with patient. Patient can continue famotidine at bedtime and pantoprazole in the morning. GERD (gastroesophageal reflux disease) Continue PPI and H2 dorina as mentioned above. Continue avoiding dietary triggers. I will see patient in 6 weeks, sooner on as needed basis. Patient is agreeable to this plan and verbalizes understanding of instructions. He was given the opportunity to ask questions and all questions answered. ? TODAY'S VISIT: Patient is here today for follow-up. Patient reports that he has been feeling better. Patient no longer has dyspepsia. Denies dysphagia or odynophagia. Patient is taking pantoprazole every morning half an hour before breakfast. Patient reports that he also takes Creon which helps him with abdominal bloating. Patient reports that he has been moving his bowels better. Only taking Colace on as needed basis. Patient denies any melena, hematochezia, unintentional weight loss or ribbon like stools. Patient has seen Hematology for diagnosed in August. Patient is currently on Eliquis. He PFSH Medical History BPH (benign prostatic hyperplasia) COVID-19 vaccine series completed Epidermal cyst GERD (gastroesophageal reflux disease) HTN (hypertension) Left groin pain Lower abdominal pain Recurrent inguinal hernia Surgical History H/O colonoscopy History of hernia surgery History of hernia surgery History of left inguinal hernia repair History of removal of cyst History of removal of cyst Hx of cystoscopy Hx of transurethral resection of prostate Hx of varicose vein ligation and stripping Family History Sister Breast cancer Social History Household Members: Spouse Housing: House Are you a primary career resource specialist to a significant other at home: No Do you presently have visiting nurse or other home services: No Alcohol intake: never Patient Tobacco Use Status: Never used Tobacco Use of substances other than those prescribed or required for medical reasons: No Have you been hit, kicked, punched, or otherwise hurt by someone within the past year? If so, by whom?: No Do you feel safe in your current relationship?: Yes Do you have thoughts of harming others: None Do you have a plan to hurt others: No Plan Do you have the means to hurt others: No Recently lost weight without trying: No service: No Current occupational status: retired Review of Systems Const Denies weight gain and Denies weight loss ENT Reports no additional complaints, Denies dysphagia and Denies odynophagia Card Reports no additional complaints Resp Reports no additional complaints GI Denies abdominal pain, Denies belching, Denies melena, Denies bloating, Denies change in bowel habits, Denies dysphagia, Denies excessive flatus, Denies dyspepsia, Denies heartburn, Denies diarrhea, Denies loose stools, Denies nausea, Denies odynophagia and Denies vomiting Reports no additional complaints Musc Reports no additional complaints Neuro Reports no additional complaints Psych Reports no additional complaints Endo Reports no additional complaints Physical Exam Vital Signs: Last Vital Signs Pulse 65 11/14/22 12:56 BP 162/91 H 11/14/22 12:56 BMI result Body Mass Index 29.5 Const General: healthy appearing, no acute distress and well developed Nutritional Appearance: well nourished Orientation/consciousness: patient oriented x3 HEENT Head: Yes normal to inspection, Yes normocephalic and Yes atraumatic Face and sinus: Yes normal facial exam Mouth: Normal oral and palatal mucosa present Throat: Yes posterior oropharynx normal, Yes tonsils normal and Yes uvula midline Eyes General: appearance normal, both eyes and all related structures Neck Neck: Yes normal visual inspection, Yes full ROM and Yes trachea midline Thyroid: Thyroid normal Resp Effort & Inspection: normal respiratory effort, able to speak in complete sentences, no tracheal deviation and symmetric chest movement Auscultation: clear to auscultation bilaterally Cardio Rate: regular rate Heart sounds: S1 normal heart sound present and S2 normal heart sound present GI Inspection: Yes normal to inspection, No distended and Yes obesity Palpation (GI): Soft to palpation, not firm, nontender and No hepatosplenomegaly present Auscultation: normal bowel sounds General: Yes no CVA tenderness Back/Spine/Pelvis Back: no CVA tenderness Skin General skin exam: elasticity normal, turgor normal and dry skin Neuro General: patient oriented x3 Psych Appearance: grossly normal Mental Status: mental status grossly normal Assessment & Plan Assessment & Plan (1) Postprandial abdominal bloating: Code(s): R14.0 - Abdominal distension (gaseous) (2) IBS (irritable bowel syndrome): Code(s): K58.9 - Irritable bowel syndrome without diarrhea Qualifiers: Irritable bowel syndrome type: with constipation Qualified Code(s): K58.1 - Irritable bowel syndrome with constipation (3) Epigastric discomfort: Code(s): R10.13 - Epigastric pain (4) GERD (gastroesophageal reflux disease): Code(s): K21.9 - Gastro-esophageal reflux disease without esophagitis Qualifiers: Esophagitis presence: without esophagitis Qualified Code(s): K21.9 - Gastro-esophageal reflux disease without esophagitis Plan Symptoms of acid reflux, dyspepsia and dysphagia has resolved. Patient currently is taking pantoprazole and reports that he has been feeling well. Patient denies any melena, hematochezia, unintentional weight loss or ribbon like stools. Patient reports that he is moving his bowels better and only uses Colace on as needed basis. Patient states that he is feeling much better. Patient will continue avoiding dietary triggers and late night snacking. Staying upright for minimum 3 hours after meals discussed with patient. He will follow-up in the office in 6 months, sooner on as needed basis. Patient is agreeable this plan and verbalizes understanding of instructions. He was given the opportunity to ask questions and all questions answered. Thank you for allowing me to participate in his care Coding Level of Care Code Est Pt Level 3 (25846) Diagnoses Postprandial abdominal bloating R14.0 Irritable bowel syndrome with constipation K58.1 Irritable bowel syndrome type: with constipation Epigastric discomfort R10.13 Gastroesophageal reflux disease without esophagitis K21.9 Esophagitis presence: without esophagitis Time Spent (min) 25 Comment 15 minutes spent with patient and additional 10 minutes spent reviewing his records
[2022-11-14 12:56] VITALS: BP 162/91; PULSE 65; BMI 29.5
== END 2022-11-14 13:20 | disposition home or self-care (01) ==
PROVIDERS: PCP Internal Medicine; Visit Provider Nurse Practitioner Family
DX: R14.0 Abdominal distension (gaseous) (principal); K58.1 Irritable bowel syndrome with constipation; R10.13 Epigastric pain; K21.9 Gastro-esophageal reflux disease without esophagitis
CPT/HCPCS: 99213

== ENCOUNTER → 2022-11-14 12:50 | Outpatient (BNVA) | payer MEDICARE, MEDICAID, SELFPAY | PROVIDERS: PCP Internal Medicine; Visit Provider Nurse Practitioner Family | DX: K21.9 Gastro-esophageal reflux disease without esophagitis (principal); R14.0 Abdominal distension (gaseous); K58.1 Irritable bowel syndrome with constipation; R10.13 Epigastric pain; Z79.899 Other long term (current) drug therapy | CPT/HCPCS: 99212 ==

== ENCOUNTER 2023-01-10 13:23 | Outpatient (REF) | payer MEDICARE, MEDICAID, SELFPAY ==
--- NOTE | ~2023-01-10 | US_ITS ---
EXAMINATION: US RETROPERITONEAL LIMITED (RENAL ONLY) CLINICAL INFORMATION: Cyst of kidney, acquired. COMPARISON: CT abdomen and pelvis without contrast 01/05/2022. Renal ultrasound 10/17/2021 and 09/01/2020. TECHNIQUE: Real-time imaging of the kidneys. FINDINGS: RIGHT KIDNEY: 11.8 x 5.3 x 5.9 cm (SAG x AP x TRV). The kidney is normal in size, contour, and echogenicity. Renal cortical thickness is normal. No calculi or focal parenchymal lesions. No hydronephrosis. LEFT KIDNEY: 12.7 x 5.5 x 4.6 cm (SAG x AP x TRV). The kidney is normal in size, contour, and echogenicity. Renal cortical thickness is normal. No renal calculi or hydronephrosis. Benign-appearing renal cysts measuring up to 7.5 cm, previously 7.3 cm on prior ultrasound. No follow-up imaging is recommended. US/US renal BI IMPRESSION: Benign-appearing left renal cysts measuring up to 7.5 cm.
== END 2023-01-10 13:24 | disposition home or self-care (01) ==
LOC: HO.US 13:23
PROVIDERS: PCP Internal Medicine; Visit Provider Urology
DX: N28.1 Cyst of kidney, acquired (principal)
CPT/HCPCS: 76775

== ENCOUNTER 2023-02-21 13:17 | Outpatient (AMB) | payer MEDICARE, MEDICAID, SELFPAY ==
--- NOTE | 2023-02-21 13:37 | A.OFFVIS_ITS ---
Intake Intake Visit Reasons: us Results(set) Intake Note: Patient is Present for Follow Up Ultrasound Urology Medication: None Antibiotic Allergies: None Blood Thinners: Eliquis, Aspirin PVR: 0ML Allergies No Known Allergies [No Known Allergies*] Allergy (Verified 11/21/22 15:00) HPI HPI Comments History of Present Illness Details Edgar is a pleasant male. He is a patient of Dr. Thompson. He is seen for the following urologic conditions - lower urinary tract symptoms - chronic groin pain Had hernia managed with Dr. Geiger Discussed imaging findings Stable cyst P.r.n. follow-up Renal cyst Stable on serial imaging US - 11/26 7.5 cm left renal cyst stable co mpared to early CT scan - 11/27 7.5 cm left renal cyst stable on ultrasound no follow-up recommended Lower urinary tract symptoms Underwent laser prostate in early 2018 Successful with good flow Reports minimal issues currently Is no longer on prostate medications Chronic groin pain Bilateral chronic groin pain On exam had marked pain on attachments of rectus abdominus to symphysis pubis Completed pelvic floor physical therapy March 2021 [facility] Medical History BPH (benign prostatic hyperplasia) COVID-19 vaccine series completed Epidermal cyst GERD (gastroesophageal reflux disease) HTN (hypertension) Left groin pain Lower abdominal pain Recurrent inguinal hernia Surgical History H/O colonoscopy History of hernia surgery History of hernia surgery History of left inguinal hernia repair History of removal of cyst History of removal of cyst Hx of cystoscopy Hx of transurethral resection of prostate Hx of varicose vein ligation and stripping Family History Sister Breast cancer Social History Household Members: Spouse Housing: House Are you a primary patient care technician to a significant other at home: No Do you presently have visiting nurse or other home services: No Alcohol intake: never Patient Tobacco Use Status: Never used Tobacco service: No Current occupational status: retired Review of Systems Const Denies chills and Denies fever(s) Card Reports no additional complaints and Denies syncope Resp Denies cough GI Denies abdominal pain and Denies heartburn Reports as per HPI and Denies change in libido Neuro Denies syncope Psych Denies change in libido Endo Denies change in libido Physical Exam Const General: cooperative, healthy appearing, comfortable and no acute distress Orientation/consciousness: patient oriented x3 HEENT Face and sinus: Yes normal facial exam Mouth: moist mucous membranes Neck Neck: Yes normal visual inspection, Yes full ROM and Yes trachea midline Chest Chest palpation & inspection: normal inspection of the chest Resp Effort & Inspection: normal respiratory effort, able to speak in complete sentences and no respiratory distress GI Inspection: Yes normal to inspection Back/Spine/Pelvis Cervical Spine: normal cervical lordosis Thoracic/Lumbar Spine: thoracic and lumbar spine normal to inspection Skin General skin exam: no rashes or lesions noted Neuro General: patient oriented x3, gait normal, tone normal and moves all extremities Extrem General: Yes normal to inspection and Yes capillary refill normal Office Procedures Post Void Residual Post Residual Void Post Void Residual (PVR): 0 [id number] Void Residual by ultrasound Assessment & Plan Assessment & Plan (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 follow-up Orders: Orders AMB Post Void Residual by ultrasound 02/21/23 N40.0 - Benign prostatic hyperplasia without lower urinary tract symptoms Patient Instructions: Imaging studies, laboratory and physical exam results were discussed and reviewed in detail. No major barriers to patient understanding were identified. An opportunity to ask questions regarding the treatment plan was provided. All questions were answered. The patient expressed understanding and agreement with the above treatment plan. The patient is aware they should contact our office by phone for worsening of their current condition or the appearance of new urologic symptoms. Compliance is encouraged with any medications and followup testing that is ordered. It is a privilege to participate in the urologic care of your patient. If you have any questions or concerns regarding treatment for the above conditions, or other urologic issues, please do not hesitate to contact me. The office telephone contact is [phone]. This note is constructed using voice recognition software. While every effort has been made to ensure accuracy hydroelectric plant electrical engineer errors may have been included. Yours sincerely, Dr Richie Everett MD, [facility] - Urology Providers of Expert, Compassionate Care for the Genitourinary System Coding Level of Care Code Est Pt Level 4 (77343) Diagnoses Complex renal cyst N28.1 BPH (benign prostatic hyperplasia) N40.0 CPT Codes Post Residual Void - PVR CPT Code: 19135-Gaac Void Residual by ultrasound ([id number])
== END 2023-02-21 14:32 | disposition home or self-care (01) ==
PROVIDERS: PCP Internal Medicine; Visit Provider Urology
DX: N28.1 Cyst of kidney, acquired (principal); N40.0 Benign prostatic hyperplasia without lower urinary tract symptoms
CPT/HCPCS: 99213

== ENCOUNTER → 2023-02-21 13:17 | Outpatient (BNVA) | payer MEDICARE, MEDICAID, SELFPAY | PROVIDERS: PCP Internal Medicine; Visit Provider Urology | DX: N40.0 Benign prostatic hyperplasia without lower urinary tract symptoms (principal); N28.1 Cyst of kidney, acquired | CPT/HCPCS: 51798; 99212 ==

== ENCOUNTER 2023-03-09 10:28 | Outpatient (REF) | payer MEDICARE, MEDICAID, SELFPAY ==
[2023-03-09 11:37] LABS: Alanine Aminotransferase 15 U/L (0-40); Albumin Level 3.8 g/dL (3.5-5.0); Alkaline Phosphatase 76 U/L (39-117); Anion Gap 11 (12-20); Aspartate Amino Transferase 21 U/L (5-37); Bilirubin Direct 0.2 mg/dL (0.0-0.5); Bilirubin Total 0.6 mg/dL (0.0-1.0); Blood Urea Nitrogen 16 mg/dL (9-16); Calcium 9.5 mg/dL (8.4-10.2); Carbon Dioxide 29 mmol/L (22-29); Chloride 107 mmol/L (96-108); Cholesterol 173 mg/dL (<200); Estimated Glomerular Filt Rate > 60; Glucose Random 93 mg/dL (60-115); HDL Cholesterol 48 mg/dL (>40); LDL Cholesterol Calculated 105 mg/dL (<100); Potassium 4.1 mmol/L (3.3-5.1); Sodium 143 mmol/L (135-145); Triglycerides 104 mg/dL (<150)
[2023-03-09 12:52] LABS: Reflex LDLD? No
== END 2023-03-09 10:29 | disposition home or self-care (01) ==
LOC: HO.LAB 10:28
PROVIDERS: PCP Internal Medicine; Visit Provider Internal Medicine
DX: I10 Essential (primary) hypertension (principal)
CPT/HCPCS: 36415; 80048; 80061; 80076

== ENCOUNTER 2023-05-15 13:10 | Outpatient (AMB) | payer MEDICARE, MEDICAID, SELFPAY ==
[2023-05-15 13:13] VITALS: BP 144/87; PULSE 61; BMI 29.5
--- NOTE | 2023-05-15 13:13 | MHC.OFFVIS ---
Intake Vital Signs 05/15/23 13:13 Height 6 ft 2 in Weight 230 lb BMI 29.5 BP 144/87 H Blood Pressure Location Lt brachial Position Sitting Pulse 61 Intake Visit Reasons: 6 month follow up Intake Note: Edgar presents in the office as a 6 month follow up. CC: HE states that he is not having any concerns. Allergies No Known Allergies [No Known Allergies*] Allergy (Verified 05/15/23 13:27) HPI 6 month follow up HPI Details LAST VISIT Postprandial abdominal bloating IBS (irritable bowel syndrome) Epigastric discomfort GERD (gastroesophageal reflux disease) Plan Symptoms of acid reflux, dyspepsia and dysphagia has resolved. Patient currently is taking pantoprazole and reports that he has been feeling well. Patient denies any melena, hematochezia, unintentional weight loss or ribbon like stools. Patient reports that he is moving his bowels better and only uses Colace on as needed basis. Patient states that he is feeling much better. Patient will continue avoiding dietary triggers and late night snacking. Staying upright for minimum 3 hours after meals discussed with patient. He will follow-up in the office in 6 months, sooner on as needed basis. Patient is agreeable this plan and verbalizes understanding of instructions. He was given the opportunity to ask questions and all questions answered. ? Thank you for allowing me to participate in his care TODAY'S VISIT Patient is here today for follow-up. Patient reports to be feeling better. Currently is taking pantoprazole in the morning. Patient does admit that occasionally if he eats late at night he will have symptoms at bedtime. Sometimes patient will wake up in the morning with epigastric pain without nausea or vomiting. Reports that pantoprazole works throughout the day patient denies having any symptoms. Patient reports that he is moving his bowels well without any issues. Denies any melena, hematochezia, unintentional weight loss or ribbon like stools. Patient denies any other GI concerning symptoms. [facility] Medical History Left groin pain Epidermal cyst COVID-19 vaccine series completed BPH (benign prostatic hyperplasia) GERD (gastroesophageal reflux disease) HTN (hypertension) Recurrent inguinal hernia Lower abdominal pain Surgical History (Updated 05/15/23 @ 13:27 by LULI Ahuja) History of removal of cyst History of removal of cyst History of left inguinal hernia repair Hx of varicose vein ligation and stripping H/O colonoscopy History of hernia surgery Hx of cystoscopy Hx of transurethral resection of prostate History of hernia surgery Family History Sister Breast cancer Social History Household Members: Spouse Housing: House Are you a primary child daycare worker to a significant other at home: No Do you presently have visiting nurse or other home services: No Alcohol intake: never Patient Tobacco Use Status: Never used Tobacco service: No Current occupational status: retired Review of Systems Const Denies weight gain and Denies weight loss ENT Reports no additional complaints, Denies dysphagia and Denies odynophagia Card Reports no additional complaints Resp Reports no additional complaints GI Denies abdominal pain, Denies belching, Denies melena, Denies bloating, Denies change in bowel habits, Denies dysphagia, Denies excessive flatus, Denies dyspepsia, Reports heartburn (Occasional at bedtime), Denies diarrhea, Denies loose stools, Denies nausea, Denies odynophagia and Denies vomiting Reports no additional complaints Musc Reports no additional complaints Neuro Reports no additional complaints Psych Reports no additional complaints Endo Reports no additional complaints Physical Exam Vital Signs: Last Vital Signs Pulse 61 05/15/23 13:13 BP 144/87 H 05/15/23 13:13 BMI result Body Mass Index 29.5 Const General: healthy appearing and no acute distress Nutritional Appearance: obese Orientation/consciousness: patient oriented x3 Resp Effort & Inspection: normal respiratory effort, able to speak in complete sentences, no tracheal deviation and symmetric chest movement Auscultation: clear to auscultation bilaterally Cardio Rate: regular rate GI Inspection: Yes normal to inspection, No distended and Yes obesity Palpation (GI): Soft to palpation, not firm, nontender and No hepatosplenomegaly present Auscultation: normal bowel sounds General: Yes no CVA tenderness Back/Spine/Pelvis Back: no CVA tenderness Skin General skin exam: elasticity normal, turgor normal and dry skin Neuro General: patient oriented x3 Psych Appearance: grossly normal Mental Status: mental status grossly normal Assessment & Plan Assessment & Plan (1) Postprandial abdominal bloating: Code(s): R14.0 - Abdominal distension (gaseous) (2) IBS (irritable bowel syndrome): Code(s): K58.9 - Irritable bowel syndrome without diarrhea Qualifiers: Irritable bowel syndrome type: without diarrhea Qualified Code(s): K58.9 - Irritable bowel syndrome without diarrhea (3) Epigastric discomfort: Code(s): R10.13 - Epigastric pain (4) GERD (gastroesophageal reflux disease): Code(s): K21.9 - Gastro-esophageal reflux disease without esophagitis Qualifiers: Esophagitis presence: esophagitis presence not specified Qualified Code(s): K21.9 - Gastro-esophageal reflux disease without esophagitis Plan Continue taking pantoprazole in the morning. Will add famotidine at bedtime. Patient was encouraged to avoid late night snacking and dietary triggers. Staying upright for minimum 3 hours after meals discussed with patient. Continue Creon with meals as it helps with bloating. Continue high-fiber diet. He will return in 6 months, sooner on as needed basis. Patient is agreeable to this plan and verbalizes understanding of instructions. He was given the opportunity to ask questions and all questions answered. Thank you for allowing me to participate in his care Medications: New famotidine 40 mg PO BEDTIME 30 tabs 3RF K21.9 - Gastro-esophageal reflux disease without esophagitis Discontinued aspirin Discontinued Reason: Duplicate 81 mg PO DAILY 90 tabs 4RF apixaban Discontinued Reason: Patient Completed Course 5 mg PO BID 60 tabs 6RF apixaban Take 2 tablets (10 mg) twice a day for 7 days then 5 mg once a day and to instructed by PCP/oncologist/extractions technologist Discontinued Reason: Patient Completed Course 5 mg PO BID 90 tabs 1RF Pulmonary embolism Coding Level of Care Code Est Pt Level 3 (61573) Diagnoses Postprandial abdominal bloating R14.0 Irritable bowel syndrome without diarrhea K58.9 Irritable bowel syndrome type: without diarrhea Epigastric discomfort R10.13 Gastroesophageal reflux disease, unspecified whether esophagitis present K21.9 Esophagitis presence: esophagitis presence not specified Time Spent (min) 30 Comment 20 minutes spent with patient and additional 10 minutes spent reviewing his records
== END 2023-05-15 13:48 | disposition home or self-care (01) ==
PROVIDERS: PCP Internal Medicine; Visit Provider Nurse Practitioner Family
DX: R14.0 Abdominal distension (gaseous) (principal); K58.9 Irritable bowel syndrome, unspecified; R10.13 Epigastric pain; K21.9 Gastro-esophageal reflux disease without esophagitis
CPT/HCPCS: 99213

== ENCOUNTER → 2023-05-15 13:10 | Outpatient (BNVA) | payer MEDICARE, MEDICAID, SELFPAY | PROVIDERS: PCP Internal Medicine; Visit Provider Nurse Practitioner Family | DX: K58.9 Irritable bowel syndrome, unspecified (principal); K21.9 Gastro-esophageal reflux disease without esophagitis; R14.0 Abdominal distension (gaseous); R10.13 Epigastric pain | CPT/HCPCS: 99212 ==

== ENCOUNTER 2023-11-14 12:38 | Outpatient (AMB) | payer MEDICARE, MEDICAID, SELFPAY ==
[2023-11-14 12:56] VITALS: BP 144/82; PULSE 70; O2SAT 96; BMI 29.2
--- NOTE | 2023-11-14 12:56 | MHC.OFFVIS ---
Vital Signs 11/14/23 12:56 Height 6 ft 2 in Weight 227 lb 8.273 oz BMI 29.2 BP 144/82 H Blood Pressure Location Rt brachial Position Sitting Pulse 70 Pulse Source Pulse Oximeter Pulse Oximetry (%) 96 Oxygen Delivery Method Room Air Intake Visit Reasons: 6 month follow up Intake Note: Edgar presents in office today for a scheduled 6 mos FUV. CC: No recent orders for rx or labs placed. This is a progress FUV. Pt reports that they have been doing well since their last visit. Pt reports that the frequency of their sx has decreased. Pt does state that they are still experiencing intermittent sx, however, not as bad. Pt reports that he unfortunately misplaced his creon and was hoping that we could refill it for him. He is aware that it may not get filled if the pharmacy deems it to be too early. Strapping Machine Tender Required: No Allergies No Known Allergies [No Known Allergies*] Allergy (Verified 11/14/23 12:57) HPI HPI 6 month follow up: Details: LAST VISIT: Postprandial abdominal bloating IBS (irritable bowel syndrome) Epigastric discomfort GERD (gastroesophageal reflux disease) Plan Continue taking pantoprazole in the morning. Will add famotidine at bedtime. Patient was encouraged to avoid late night snacking and dietary triggers. Staying upright for minimum 3 hours after meals discussed with patient. Continue Creon with meals as it helps with bloating. Continue high-fiber diet. He will return in 6 months, sooner on as needed basis. Patient is agreeable to this plan and verbalizes understanding of instructions. He was given the opportunity to ask questions and all questions answered. ? Thank you for allowing me to participate in his care Medications New famotidine 40 mg PO BEDTIME 30 tabs 3RF K21.9 Discontinued aspirin Discontinued Reason: Duplicate 81 mg PO DAILY 90 tabs 4RF apixaban Discontinued Reason: Patient Completed Course 5 mg PO BID 60 tabs 6RF apixaban Take 2 tablets (10 mg) twice a day for 7 days then 5 mg once a day and to instructed by PCP/oncologist/clinical documentation specialist Discontinued Reason: Patient Completed Course 5 mg PO BID 90 tabs 1RF Pulmonary embolism TODAY'S VISIT: Patient is here today for follow-up. Patient reports that he has been doing fairly well, however he still occasionally will abdominal bloating. Patient reports that he does not move his bowels completely. Reports that he lost his Creon after getting refilled at the pharmacy. Patient reports that he did not notice much of help now that he does not have Creon. Symptoms are same with or without. Continues to be bloated. Patient reports that famotidine is helpful. Symptoms better since he started taking it. He continues to take pantoprazole in the morning and his symptoms of acid reflux are suppressed for the most part. Patient denies melena, hematochezia, unintentional weight loss or ribbon like stools. Patient is unsure if he wants to go for colonoscopy. [facility] Medical History Left groin pain Epidermal cyst COVID-19 vaccine series completed BPH (benign prostatic hyperplasia) GERD (gastroesophageal reflux disease) HTN (hypertension) Recurrent inguinal hernia Lower abdominal pain Surgical History History of removal of cyst History of removal of cyst History of left inguinal hernia repair Hx of varicose vein ligation and stripping H/O colonoscopy History of hernia surgery Hx of cystoscopy Hx of transurethral resection of prostate History of hernia surgery Family History Sister Breast cancer Social History Household Members: Spouse Housing: House Are you a primary human services care specialist to a significant other at home: No Do you presently have visiting nurse or other home services: No Alcohol intake: never Patient Tobacco Use Status: Never used Tobacco service: No Current occupational status: retired Review of Systems Const Denies weight gain and Denies weight loss ENT Reports no additional complaints, Denies dysphagia and Denies odynophagia Card Reports no additional complaints Resp Reports no additional complaints GI Denies abdominal pain, Denies belching, Denies melena, Reports bloating, Denies change in bowel habits, Reports constipation, Denies dysphagia, Denies excessive flatus, Denies dyspepsia, Reports heartburn, Denies diarrhea, Denies loose stools, Denies nausea, Denies odynophagia and Denies vomiting Reports no additional complaints Musc Reports no additional complaints Neuro Reports no additional complaints Psych Reports no additional complaints Endo Reports no additional complaints Physical Exam Vital Signs: Last Vital Signs Pulse 70 11/14/23 12:56 BP 144/82 H 11/14/23 12:56 Pulse Ox 96 11/14/23 12:56 Oxygen Delivery Method Room Air 11/14/23 12:56 BMI result Body Mass Index 29.2 Const General: healthy appearing and no acute distress Nutritional Appearance: obese Orientation/consciousness: patient oriented x3 Resp Effort & Inspection: normal respiratory effort, able to speak in complete sentences, no tracheal deviation and symmetric chest movement Auscultation: clear to auscultation bilaterally Cardio Rate: regular rate GI Inspection: Yes normal to inspection, No distended and Yes obesity Palpation (GI): Soft to palpation, not firm, nontender and No hepatosplenomegaly present Auscultation: normal bowel sounds General: Yes no CVA tenderness Back/Spine/Pelvis Back: no CVA tenderness Skin General skin exam: elasticity normal, turgor normal and dry skin Neuro General: patient oriented x3 Psych Appearance: grossly normal Mental Status: mental status grossly normal Assessment & Plan Assessment & Plan (1) Postprandial abdominal bloating: Code(s): R14.0 - Abdominal distension (gaseous) (2) IBS (irritable bowel syndrome): Code(s): K58.9 - Irritable bowel syndrome, unspecified Qualifiers: Irritable bowel syndrome type: with constipation Qualified Code(s): K58.1 - Irritable bowel syndrome with constipation (3) Epigastric discomfort: Code(s): R10.13 - Epigastric pain (4) GERD (gastroesophageal reflux disease): Code(s): K21.9 - Gastro-esophageal reflux disease without esophagitis Qualifiers: Esophagitis presence: esophagitis presence not specified Qualified Code(s): K21.9 - Gastro-esophageal reflux disease without esophagitis Plan Continue pantoprazole in the morning and famotidine at bedtime. Will stop Creon as patient reports it was not effective. Continue avoiding dietary triggers and late night snacking. Staying upright for minimum 3 hours after meals discussed with patient. Patient will start taking senna daily. He continues to feel like he does not empty his bowels completely. Patient will increase fluid intake and activity to promote better bowel motility. Patient will return in 3 months we will discuss going for possible upper endoscopy if his symptoms will continue. If he will continue to have abdominal bloating he might be willing to change his mind and go for colonoscopy. Patient will return in 3 months, sooner on as needed basis. He is agreeable to plan of care and verbalizes understanding of instructions. He was given the opportunity to ask questions and all questions. Thank you for allowing me to participate in his care Medications: New sennosides (Natural Senna Laxative) 17.2 mg (2 x 8.6 mg) PO BEDTIME 60 tabs 3RF constipation K59.00 - Constipation, unspecified Discontinued [id number] 24,000-76,000 -120,000 unit (Creon) administer with meals and/or snacks Discontinued Reason: Doctor's Order 1 cap PO QID 120 caps 3RF K86.89 - Other specified diseases of pancreas Coding Level of Care Code Est Pt Level 3 (17068) Diagnoses Postprandial abdominal bloating R14.0 Irritable bowel syndrome with constipation K58.1 Irritable bowel syndrome type: with constipation Epigastric discomfort R10.13 Gastroesophageal reflux disease, unspecified whether esophagitis present K21.9 Esophagitis presence: esophagitis presence not specified Time Spent (min) 30 Comment 20 minutes spent with patient and additional 10 minutes spent reviewing his records
== END 2023-11-14 13:31 | disposition home or self-care (01) ==
PROVIDERS: PCP Internal Medicine; Visit Provider Nurse Practitioner Family
DX: R14.0 Abdominal distension (gaseous) (principal); K58.1 Irritable bowel syndrome with constipation; R10.13 Epigastric pain; K21.9 Gastro-esophageal reflux disease without esophagitis
CPT/HCPCS: 99213

== ENCOUNTER → 2023-11-14 12:38 | Outpatient (BNVA) | payer MEDICARE, MEDICAID, SELFPAY | PROVIDERS: PCP Internal Medicine; Visit Provider Nurse Practitioner Family | DX: R14.0 Abdominal distension (gaseous) (principal); K21.9 Gastro-esophageal reflux disease without esophagitis; K58.1 Irritable bowel syndrome with constipation; R10.13 Epigastric pain | CPT/HCPCS: 99212 ==

== ENCOUNTER 2024-02-20 12:44 | Outpatient (AMB) | payer MEDICARE, MEDICAID, SELFPAY ==
--- NOTE | 2024-02-20 13:15 | MHC.OFFVIS ---
Vital Signs 02/20/24 13:16 Height 6 ft 2 in Weight 230 lb BMI 29.5 BP 146/88 H Blood Pressure Location Rt brachial Position Sitting Pulse 68 Pulse Source Pulse Oximeter Pulse Oximetry (%) 97 Oxygen Delivery Method Room Air Intake Visit Reasons: 3 month follow up Intake Note: ESTABLISHED PATIENT Reason; 3 mo FU. Discuss colo/egd Changes/concerns? No significant GI concerns per pt. Sales Project Coordinator Required: No Allergies No Known Allergies [No Known Allergies*] Allergy (Verified 02/20/24 13:20) HPI HPI 3 month follow up: Details: LAST VISIT: Postprandial abdominal bloating IBS (irritable bowel syndrome) Epigastric discomfort GERD (gastroesophageal reflux disease) Plan Continue pantoprazole in the morning and famotidine at bedtime. Will stop Creon as patient reports it was not effective. Continue avoiding dietary triggers and late night snacking. Staying upright for minimum 3 hours after meals discussed with patient. Patient will start taking senna daily. He continues to feel like he does not empty his bowels completely. Patient will increase fluid intake and activity to promote better bowel motility. Patient will return in 3 months we will discuss going for possible upper endoscopy if his symptoms will continue. If he will continue to have abdominal bloating he might be willing to change his mind and go for colonoscopy. Patient will return in 3 months, sooner on as needed basis. He is agreeable to plan of care and verbalizes understanding of instructions. He was given the opportunity to ask questions and all questions. ? Thank you for allowing me to participate in his care Medications New sennosides (Natural Senna Laxative) 17.2 mg (2 x 8.6 mg) PO BEDTIME 60 tabs 3RF constipation K59.00 Discontinued [id number] 24,000-76,000 -120,000 unit (Creon) administer with meals and/or snacks Discontinued Reason: Doctor's Order 1 cap PO QID 120 caps 3RF K86.89 TODAY'S VISIT Patient is here today for follow-up and to discuss going for upper endoscopy and colonoscopy. Patient is taking pantoprazole and for the most part he reports that his symptoms are suppressed. Occasionally depending on what he eats patient will have epigastric pain. Denies any nausea or vomiting. Patient reports that now see is moving his bowels better, however occasionally he will have abdominal cramping and bloating. Patient denies any melena, hematochezia, unintentional weight loss or ribbon like stools. Denies any mucus in his stools. Occasional postprandial loose stools. Denies any issues with anesthesia in the past. No history of sleep apnea. On low-dose aspirin. Patient is on lisinopril. [facility] Medical History Left groin pain Epidermal cyst COVID-19 vaccine series completed BPH (benign prostatic hyperplasia) GERD (gastroesophageal reflux disease) HTN (hypertension) Recurrent inguinal hernia Lower abdominal pain Surgical History History of removal of cyst History of removal of cyst History of left inguinal hernia repair Hx of varicose vein ligation and stripping H/O colonoscopy History of hernia surgery Hx of cystoscopy Hx of transurethral resection of prostate History of hernia surgery Family History Sister Breast cancer Social History Household Members: Spouse Housing: House Are you a primary pharmacist critical care to a significant other at home: No Do you presently have visiting nurse or other home services: No Alcohol intake: never Patient Tobacco Use Status: Never used Tobacco service: No Current occupational status: retired Review of Systems Const Denies weight gain and Denies weight loss ENT Reports no additional complaints, Denies dysphagia and Denies odynophagia Card Reports no additional complaints Resp Reports no additional complaints GI Denies abdominal pain, Denies belching, Denies melena, Denies bloating, Denies change in bowel habits, Denies dysphagia, Denies excessive flatus, Denies dyspepsia, Denies heartburn, Denies diarrhea, Denies loose stools, Denies nausea, Denies odynophagia and Denies vomiting Reports no additional complaints Musc Reports no additional complaints Neuro Reports no additional complaints Psych Reports no additional complaints Endo Reports no additional complaints Physical Exam Vital Signs: Last Vital Signs Pulse 68 02/20/24 13:16 BP 146/88 H 02/20/24 13:16 Pulse Ox 97 02/20/24 13:16 Oxygen Delivery Method Room Air 02/20/24 13:16 BMI result Body Mass Index 29.5 Const General: healthy appearing and no acute distress Nutritional Appearance: obese Orientation/consciousness: patient oriented x3 Resp Effort & Inspection: normal respiratory effort, able to speak in complete sentences, no tracheal deviation and symmetric chest movement Auscultation: clear to auscultation bilaterally Cardio Rate: regular rate GI Inspection: Yes normal to inspection, No distended and Yes obesity Palpation (GI): Soft to palpation, not firm, nontender and No hepatosplenomegaly present Auscultation: normal bowel sounds General: Yes no CVA tenderness Back/Spine/Pelvis Back: no CVA tenderness Skin General skin exam: elasticity normal, turgor normal and dry skin Neuro General: patient oriented x3 Psych Appearance: grossly normal Mental Status: mental status grossly normal Assessment & Plan Assessment & Plan (1) Postprandial abdominal bloating: Code(s): R14.0 - Abdominal distension (gaseous) (2) IBS (irritable bowel syndrome): Code(s): K58.9 - Irritable bowel syndrome, unspecified Qualifiers: Irritable bowel syndrome type: with diarrhea Qualified Code(s): K58.0 - Irritable bowel syndrome with diarrhea (3) Epigastric discomfort: Code(s): R10.13 - Epigastric pain (4) GERD (gastroesophageal reflux disease): Code(s): K21.9 - Gastro-esophageal reflux disease without esophagitis Qualifiers: Esophagitis presence: esophagitis presence not specified Qualified Code(s): K21.9 - Gastro-esophageal reflux disease without esophagitis (5) Screen for colon cancer: Code(s): Z12.11 - Encounter for screening for malignant neoplasm of colon Plan Continue pantoprazole daily. Avoid dietary triggers and late night snacking. Staying upright for minimum 3 hours after meals discussed with patient. Continue bowel regimen. Increase fluid intake and activity to promote better bowel motility. Patient denies any issues with anesthesia in the past. Currently on low-dose aspirin. Denies any cardiac or respiratory symptoms. What to expect before during and after procedure discussed with patient. Patient will go for upper endoscopy as well as colonoscopy. Stressed the importance of good bowel prep day before procedure as well as went over clear liquid diet. Patient will be seen after the procedure. He will call our office if he will any GI concerning symptoms. He is agreeable to this plan and instructions. He was given the opportunity to ask questions and all questions answered thank you for allowing me to participate in his care Medications: New bisacodyl (Dulcolax (bisacodyl)) take 4 tabs at noon the day before your colonoscopy 20 mg (4 x 5 mg) PO ONCE 4 tabs 0RF 1 day Z12.11 - Encounter for screening for malignant neoplasm of colon polyethylene glycol 3350 (Miralax) As directed by gastroenterology department at [facility] 238 grams PO ONCE 238 grams 0RF Z12.11 - Encounter for screening for malignant neoplasm of colon cyclobenzaprine 5 mg PO BEDTIME PRN 7 tabs 0RF muscle spasm Coding Level of Care Code Est Pt Level 3 (92721) Diagnoses Postprandial abdominal bloating R14.0 Irritable bowel syndrome with diarrhea K58.0 Irritable bowel syndrome type: with diarrhea Epigastric discomfort R10.13 Gastroesophageal reflux disease, unspecified whether esophagitis present K21.9 Esophagitis presence: esophagitis presence not specified Screen for colon cancer Z12.11 Time Spent (min) 30 Comment 20 minutes spent with patient and additional 10 minutes spent reviewing his records
[2024-02-20 13:16] VITALS: BP 146/88; PULSE 68; O2SAT 97; BMI 29.5
--- OUTSIDE RECORDS SUMMARY | 2024-02-20 15:06 | XMS_ITS | Continuity of Care Document ---
Author Organization [facility] Address [address] [place] [address] Phone Care Team Providers Care Fashion Consultant Name Role Phone FERNIE Henriquez DNP, Joseph [...] Diagnoses Date Provider Office/outpati ent visit,est, mod [facility], [address] [place], [place], [facility], tel:[phone] [place] back pain (chief complaint) Muscle spasmBody mass index (BMI) 29.0-29.9, adult Martinez Conte. [address] [place] [address], [address] [place] [address], . tel:[phone] [facility], [address] [place] [address], [facility], tel:[phone] [facility] No Information Obamiro Cecile. [address] [place] [address], [facility], . tel:[phone] [facility], [address] [place] [address], 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, . tel:[phone] [facility], [address] [place] [address], [facility], tel:[phone] [facility] Dyslipidemia (chief complaint) No Information Obamiro Cecile. [address] [place] [address], [facility], . tel:[phone] [facility], [address] [place] [address], [facility], tel:[phone] [facility] Medical diabetes (chief complaint) Flu Shot Obara Milly. [address] [place] [address], [id number] [place], [place], [address], [place]. tel:[phone] [facility], [address] [place] [address], [facility], tel:[phone] [facility] diabetes (chief complaint) No Information Obara Milly. 5 [facility], [id number] [place], [place], [address], [place]. tel:[phone] [facility], [address] [place] [address], [facility], tel:[phone] [facility] Old No Information Sadia Bindu. [address], [facility], . tel:[phone] [facility], [address] [place] [address], [facility], tel:[phone] [facility] diabetes (chief complaint)hype rlipidemia (chief complaint) HIB Vaccination, Need For Aamir Alvarenga. [address] [place] [address], [address] [place] [address], [facility], . tel:[phone] [facility], [address] [place] [address], [facility], tel:[phone] [facility] palpitations (chief complaint) PalpitationsDM II Uncontrolled (+v58.67 If Insulin) Aamir Alvarenga. [address] [place] [address], [address] [place] [address], [facility], . tel:[phone] [facility], [address] [place] [address], [facility], tel:[phone] [facility] PALPITATIONS (chief complaint) Palpitations Jairo Iglesias. [address] [place] [id number] [place] [address], [facility], . [facility], [address] [place] [address], [facility], tel:[phone] [facility] Medical diabetes (chief complaint) No Information Randell Atkins. [address] [place] [address], [id number] [address] [place] [address], [facility], . tel:[phone] [facility], [address] [place] [address], [facility], tel:[phone] [facility] Medical diabetes (chief complaint) DM II Controlled (+v58.67 If Insulin) Randell Atkins. 5 [facility], [id number] 00, [place], [place], [facility], [place]. tel:[phone] [facility], [address] [place] [address], [facility], tel:[phone] [facility] Medical arthralgias (chief complaint) ARTHROPATHY NEC-L/LEG Jairo Iglesias. 70 [facility], [address] [place] [address], [facility], . [facility], [address] [place] [address], [facility], tel:[phone] [facility] Medical QUESTION COLONOSCOPY (chief complaint) No Information Jairo Iglesias. 70 [facility], [address] [place] [address], [place], [place], [facility], [place]. [facility], [address] [place] [address], [facility], tel:[phone] [facility] LAB RESULTS (chief complaint) COLONOSCOPY Jairo Iglesias. 70 [facility], [id number] 00CC, [place], [place], [facility], [place]. [facility], [address] [place] [address], [facility], tel:[phone] [facility] cold symptoms (chief complaint) Bronchitis, Acute Jairo Iglesias. 70 [facility], [id number], [place], [place], [facility], . [facility], [address] [place] [address], [facility], tel:[phone] [facility] No Information Sadia Ruano. 70 [facility], [id number] [place], [place], [facility], . tel:[phone] [facility], [address] [place] [address], [facility], tel:[phone] [facility] diabetes (chief complaint) DM II Controlled (+v58.67 If Insulin) Obeliana Atkins. 715 [facility], [id number] [facility], [place], [facility], . tel:[phone] [facility], [address] [place] [address], [facility], tel:[phone] [facility] WNATS LIFE ALERT,ELECBED (chief complaint) DM II Uncontrolled (+v58.67 If Insulin) Jairo Iglesias. 70 [facility], [id number] 00, [place], [place], [facility], . [facility], [address] [place] [address], [facility], tel:[phone] [facility] for review of labs (chief complaint) DM II Controlled (+v58.67 If Insulin) Sienna dolan [address] [facility], [id number] 00CC, [place], [place], [facility], . tel:[phone] [facility], [address] [place] [address], [facility], tel:[phone] [facility] dizziness (chief complaint) Dizziness/Giddin ess/VertigoDM II Controlled (+v58.67 If Insulin) Sienna Marcel dolan [address] [facility], [id number] 00CC, [place], [place], [facility], . tel:[phone] [facility], [address] [place] [address], [facility], tel:[phone] Zafar [facility] dizzzy when sleeping (chief complaint) Dizziness/Giddin ess/VertigoDM II Controlled (+v58.67 If Insulin) Sienna dolan [address] [facility], [id number] 00CC, [place], [place], [facility], . tel:[phone] [facility], [address] [place] [address], [facility], tel:[phone] [facility] podiatry (chief complaint)diab etes (chief complaint)Toen ail trimmings (chief complaint) Tinea Pedis, Athletes Foot, Foot Ringworm Greg Preston. [address] [place] [address], [id number] 00CC, [place], [place], [id number], . tel:[phone] [facility], [address] [place] [address], [facility], tel:[phone] [facility] toe on right foot numb at night (chief complaint)toes nails trimming (chief complaint) Pain In Limb Greg Preston. [address] [place] [address], [id number] [address] [place] [address], [id number], . tel:[phone] [facility], [address] [place] [address], [facility], tel:[phone] [facility] Medical ROUTINE DM PT (chief complaint) FLAT FOOT Greg Preston. [address] [place] [address], [id number] [place], [place], [id number], . tel:[phone] [facility], [address] [place] [address], [facility], tel:[phone] [facility] Pain In Limb Greg Preston. [address] [place] [address], [id number] [address] [place] [address], [id number], . tel:[phone] Family History Family Member Type Diagnosis Age [...] republican ID Authoriza tion(s) Medicare NGS MB [id number] [facility] [id number] Social History Type Description Quantity Date Captured [...] (+v58.67 If Insulin)) ordered Referral Referred To: Moahn Garza DPM [address] [place] [address] [id number], [id number] Ordered: Referral: Mohan Garza DPM. Podiatry. Evaluate and treat. ordered Referral Ordered: Gastroenterology. ordered Referral Referred To: Quincy Lira MD [address] [place] [address], [address] [phone] Ordered: Referral: Quincy Lira MD. Gastroentergy. Evaluate and treat. ordered Future Order: Lab Order CMP ([id number]), O rdered on: Ordered Future Order: Lab Order Hemoglob in A1c ([id number]), Ordered on: Ordered Future Order: Lab Order Lipid Pa kyler ([id number]), Ordered on: Ordered Future Order: Lab Order Microalb /Creat Ratio, Randm Ur ([id number]), Ordered on: Ordered Future Order: Lab Order Microalb /Creat Ratio, Randm Ur ([id number]), Sent on: Sent Future Order: Lab Order Prostate -Specific Ag, Serum ([id number]), Sent on: Sent Future Order: Lab Order Hemoglob in A1c ([id number]), Sent on: Sent Future Order: Lab Order Hepatic Function Panel (7) ([id number]), Ordered on: Ordered Future Order: Lab Order Comp. Me tabolic Panel (14) ([id number]), Ordered on: Ordered Future Order: Lab Order Lipid Pa kyler ([id number]), Ordered on: Ordered Future Order: Lab Order Free Thy roxine + T4 ([id number]), Ordered on: Ordered Future Order: Lab Order Prostate -Specific Ag, Serum ([id number]), Ordered on: Ordered Future Order: Lab Order CBC With Differential/Platelet ([id number]), Appointment on: Ordered Future Order: Lab Order TSH ([id number]), Ord ered on: Ordered Future Order: Lab Order Hemoglob in A1c ([id number]), Ordered on: Ordered Future Order: Lab Order Lipid Pa kyler ([id number]), Ordered on: Ordered Future Order: Lab Order CMP ([id number]), O rdered on: Ordered Future Order: Lab Order Hemoglob in A1c ([id number]), Ordered on: Ordered Future Order: Lab Order UA w/lakhwinder ro ([id number]), Ordered on: Ordered History Of Present Illness [...] d Activity as tolerated Activity as tolerated Increase activity level Reviewed medications Take new medication as prescribe d Adequate nutritional intake Follow exercise program Patient understood and made info rmed decision Change medication Reviewed medications Take new medication as prescribe d Practice good hygiene Practice good hygiene Protective activity Patient understood and made info rmed decision Reviewed medications Take new medication as prescribe d Increase rest Assessments Type Assessment Date assessment Muscle spasm assessment Body mass index (BMI) 29.0-29.9, adult Mental Status Date Cognitive Assessment Orientation - [place] ed to time, place, person, situation.
== END 2024-02-20 14:31 | disposition home or self-care (01) ==
PROVIDERS: PCP Internal Medicine; Visit Provider Nurse Practitioner Family
DX: R14.0 Abdominal distension (gaseous) (principal); K58.0 Irritable bowel syndrome with diarrhea; K21.9 Gastro-esophageal reflux disease without esophagitis; Z12.11 Encounter for screening for malignant neoplasm of colon
CPT/HCPCS: 99213

== ENCOUNTER → 2024-02-20 12:44 | Outpatient (BNVA) | payer MEDICARE, MEDICAID, SELFPAY | PROVIDERS: PCP Internal Medicine; Visit Provider Nurse Practitioner Family | DX: K58.0 Irritable bowel syndrome with diarrhea (principal); R10.13 Epigastric pain; K21.9 Gastro-esophageal reflux disease without esophagitis; R14.0 Abdominal distension (gaseous) | CPT/HCPCS: 99212 ==

== ENCOUNTER 2024-05-29 08:39 | Day surgery (SDC) | payer MEDICARE, MEDICAID, SELFPAY ==
[2024-05-27 14:05] VITALS: BMI 29.5
--- NOTE | 2024-05-28 09:57 | HO.ANESPROP2 ---
Documented by User: Katie Zhao NP 05/28/24 09:57 HPI - Anesthesia Eval Consult details Narrative: 83yo M for Upper Endoscopy and Colonoscopy [facility] Active Problems Active Problems: All Active Problems Left groin pain (Acute) Bilateral pulmonary embolism (Acute) Complex renal cyst (Acute) Epididymal pain (Acute) Bilateral groin pain (Acute) BPH (benign prostatic hyperplasia) (Acute) Epidermal cyst (Acute) Recurrent inguinal hernia (Acute) Lower abdominal pain (Acute) Past Medical History Medical History Left groin pain Epidermal cyst COVID-19 vaccine series completed BPH (benign prostatic hyperplasia) GERD (gastroesophageal reflux disease) HTN (hypertension) Recurrent inguinal hernia Lower abdominal pain Family History Family History Sister Breast cancer Family history of problems with anesthesia: No Surgical History Surgical History History of removal of cyst History of removal of cyst History of left inguinal hernia repair Hx of varicose vein ligation and stripping H/O colonoscopy History of hernia surgery Hx of cystoscopy Hx of transurethral resection of prostate History of hernia surgery History of Problems with Anesthesia: No Social History Social History Household Members: Spouse Housing: House Are you a primary daycare worker to a significant other at home: No Do you presently have visiting nurse or other home services: No Alcohol intake: never Patient Tobacco Use Status: Never used Tobacco Use of substances other than those prescribed or required for medical reasons: No Advance Directives: No Advance Directives Information Provided: Yes service: No Current occupational status: retired Meds Allergies Allergy/AdvReac Type Severity Reaction Status Date / Time No Known Allergies Allergy Verified 02/20/24 13:20 [No Known Allergies*] Home Medications ?Medication ?Instructions ?Recorded ?Confirmed ?Last Taken ?Type fluticasone propionate 50 2 spray intranasal DAILY 07/08/20 11/21/22 Unknown History mcg/actuation nasal spray,suspension lisinopril 40 mg tablet 40 mg PO DAILY 07/08/20 11/21/22 Unknown History metoprolol succinate 100 mg 100 mg PO DAILY 07/08/20 11/21/22 Unknown History tablet,extended release 24 hr polyvinyl alcohol 1.4 % eye drops 1 drp ophthalmic (eye) DIRECTED 07/08/20 11/21/22 Unknown History metoprolol succinate 25 mg 25 mg PO DAILY 02/22/21 11/21/22 Unknown History tablet,extended release 24 hr multivitamin 1 tab PO DAILY 08/19/21 11/21/22 Unknown History aspirin 81 mg tablet,delayed 81 mg PO QAM 11/14/23 Unknown History release Exam Height,Weight and Vital Signs: Height 6 ft 2 in Weight 104.326 kg Assessment and Plan Assessment Anesthesia Assessment: Chart Reviewed Final Anesthetic Review Family History of Problems with Anesthesia: No History of Problems with Anesthesia: No Documented by User: Debbie Mai MD 05/29/24 09:23 [facility] Past Medical History Medical History Left groin pain Epidermal cyst COVID-19 vaccine series completed BPH (benign prostatic hyperplasia) GERD (gastroesophageal reflux disease) HTN (hypertension) Recurrent inguinal hernia Lower abdominal pain Family History Family History Sister Breast cancer Surgical History Surgical History History of removal of cyst History of removal of cyst History of left inguinal hernia repair Hx of varicose vein ligation and stripping H/O colonoscopy History of hernia surgery Hx of cystoscopy Hx of transurethral resection of prostate History of hernia surgery Social History Social History Household Members: Spouse Housing: House Are you a primary daycare worker to a significant other at home: No Do you presently have visiting nurse or other home services: No Alcohol intake: never Patient Tobacco Use Status: Never used Tobacco Use of substances other than those prescribed or required for medical reasons: No Advance Directives: No Advance Directives Information Provided: Yes service: No Current occupational status: retired Meds Allergies Allergy/AdvReac Type Severity Reaction Status Date / Time No Known Allergies Allergy Verified 02/20/24 13:20 [No Known Allergies*] Home Medications ?Medication ?Instructions ?Recorded ?Confirmed ?Last Taken ?Type fluticasone propionate 50 2 spray intranasal DAILY 07/08/20 11/21/22 Unknown History mcg/actuation nasal spray,suspension lisinopril 40 mg tablet 40 mg PO DAILY 07/08/20 11/21/22 Unknown History metoprolol succinate 100 mg 100 mg PO DAILY 07/08/20 11/21/22 Unknown History tablet,extended release 24 hr polyvinyl alcohol 1.4 % eye drops 1 drp ophthalmic (eye) DIRECTED 07/08/20 11/21/22 Unknown History metoprolol succinate 25 mg 25 mg PO DAILY 02/22/21 11/21/22 Unknown History tablet,extended release 24 hr multivitamin 1 tab PO DAILY 08/19/21 11/21/22 Unknown History aspirin 81 mg tablet,delayed 81 mg PO QAM 11/14/23 Unknown History release Exam Airway Mallampati Class: II TM Dist: >3cm Denture: Upper Heart: rrr Lungs: cta Assessment and Plan Assessment Anesthesia Assessment: Anesthesia Plan Discussed Final Anesthetic Review NPO: Yes ASA Class: III Final Preanesthetic Review: No Changes in Pt Med Stat, Meds/Allgs Chart Reviewed, Consent Obtained/Reviewed and Anes Risks/Benef Reviewed Patient Risk: Intermediate Procedure Risk: Low Anesthetic Plan Anesthetic Plan: MAC: Disposition: Standard PACU
--- NOTE | 2024-05-29 08:47 | MHC.SHP ---
Pre-Procedural Eval Section A - 24 Hr Update-Section A only Date of Service: 05/29/24 Section B - Complete if H&P > 30 days Chief Complaint: gerd,screening Relevant Family History (Specify if Yes): No Relevant Social History: None Present Medications: see Short Stay Collaborative assessment Medical History: Significant History (Left groin pain Epidermal cyst COVID-19 vaccine series completed BPH (benign prostatic hyperplasia) GERD (gastroesophageal reflux disease) HTN (hypertension) Recurrent inguinal hernia Lower abdominal pain) History of Previous Operations: Relevant previous surgery/procedure and date(s) (History of removal of cyst History of removal of cyst History of left inguinal hernia repair Hx of varicose vein ligation and stripping H/O colonoscopy History of hernia surgery Hx of cystoscopy Hx of transurethral resection of prostate History of hernia surgery) Allergies: Allergies Allergy/AdvReac Type Severity Reaction Status Date / Time No Known Allergies Allergy Verified 02/20/24 13:20 [No Known Allergies*] Review of Systems Sugical H&P ROS: Negative: Constitution, Cardiovascular, Respiratory, Neurological, Psychiatric, Hem-Onc, Allergic/Immunologic, Gastrointestinal, Genitourinary, Musculoskeletal, Integumentary, Endocrine and Eyes/Ears/Nose/Throat Exam Surgical H&P Exam: Normal: HEENT, Normal: Heart, Normal: Lungs, Normal: Extremities, Normal: Abdomen, Normal: Skin and Normal: Neurological Plan Diagnosis/Plan: Unchanged I have reviewed the history and physical and performed a pertinent physical examination on my patient. No changes have occurred unless specified. Time Spent With Patient Time: Total time managing care of this patient today ____ minutes.
[2024-05-29 08:57] VITALS: BP 136/82; PULSE 78; RESP 16; TEMP 36.5; O2SAT 97
[2024-05-29] MEDS: Lactated Ringers 1,000 ML 100 ML IVCONT (09:01)
--- NOTE | 2024-05-29 10:13 | P.OPN-COLO_ITS ---
Colonoscopy Operative Note Operative Note Date of Service: 05/29/24 Narrative: Operative Information Procedure Description: EGD, Colonoscopy Indication: GERD,screening Anesthesia: MAC FLEXIBLE TRANSORAL UPPER GASTROINTESTINAL ENDOSCOPY AND COLONOSCOPY PROCEDURE NOTE UPPER ENDOSCOPY Consent: Indications for the procedure and potential complications of bleeding, perforation, reaction to medications and missed diagnosis were discussed with the patient and informed consent was obtained. Instrument: Olympus GIF H 190 J mid size upper endoscope Monitoring: Vital signs and clinical assessment, continuous EKG monitoring, Pulse oximetry, Carbon Dioxide monitoring and blood pressure monitoring were done throughout the procedure. Procedure: The patient was placed in the left lateral decubitis position and pre-procedure medications were administered and a bite block was placed. The endoscope was inserted into the mouth and advanced under direct vision to the third part of duodenum. A careful inspection was made as the upper endoscope was withdrawn including a retroflexed examination of the proximal stomach; Findings and interventions are described below. Findings: Larynx:normal Esophagus: GE junction at 42 cm, diaphragm hiatus at 42 cm, normal, bx taken from GEJ, distal and proximal esophagus Stomach: mild erythema with scarring. Biopsies were obtained. Grade 2 flap valve on retroflexed examination of the cardia. Duodenum: Normal bulb and descending duodenum, Intervention: Biopsies as noted above, COLONOSCOPY Instrument: Olympus variable stiffness pediatric scope 190L Colonoscopy Monitoring: Vital signs and clinical assessment, continuous EKG monitoring, Pulse oximetry, Carbon Dioxide monitoring and blood pressure monitoring were done throughout the procedure. Colon withdrawal time was 8 minutes. Procedure: The patient was placed in the left lateral decubitis position and pre-procedure medications were administered. After a digital rectal examination of the ano-rectum, the video colonoscope was inserted into the rectum and advanced through the colon to the cecum/TI. The colonoscope was slowly withdrawn in a retrograde panoramic fashion and the colon mucosa was carefully examined including a retroflexed view of the rectum. Findings and interventions are described below. Procedure Difficulty:moderate Findings: Terminal Ileum-normal Cecum: melanosis coli with granular mucosa, bx taken Ascending Colon: melanosis coli Transverse Colon -normal Descending Colon:normal Sigmoid Colon: moderate diverticulosis, 8-10 mm sessile polyp removed with cold snare Rectum: Retroflexion with medium sized internal hemorrhoids, grade I, 4-5 mm sessile polyp removed with cold forceps Anorectum - normal Colon preparation: [place] Bowel Preparation Scale Right colon; 2 Transverse colon: 2 Left colon; 2 (0 = Unprepared colon segment with mucosa not seen due to solid stool that cannot be cleared. 1 = Portion of mucosa of the colon segment seen, but other areas of the colon segment not well seen due to staining, residual stool and/or opaque liquid. 2 = Minor amount of residual staining, small fragments of stool and/or opaque liquid, but mucosa of colon segment seen well. 3 = Entire mucosa of colon segment seen well with no residual staining, small fragments of stool or opaque liquid) Impression and Post Procedure Diagnosis: Endoscopy Findings: gastritis Colonoscopy Findings: melanosis coli diverticulosis colon polyps x 2 internal hemorrhoids Plan: Await Pathology results Repeat Colonoscopy in 5 years if health allows or earlier if clinically indicated High fiber diet leaflet avoid straining at stool, epsom salts and sitz bath, anusol supps or cream Above findings were reviewed with the patient and relevant handouts were provided if indicated.
[2024-05-29 10:40] VITALS: BP 100/65; PULSE 63; RESP 18; TEMP 36.3; O2SAT 93
[2024-05-29 10:55] VITALS: BP 113/73; PULSE 60; RESP 16; O2SAT 96
[2024-05-29 11:10] VITALS: BP 133/86; PULSE 57; RESP 18; TEMP 36.3; O2SAT 95
== END 2024-05-29 12:08 | disposition home or self-care (01) ==
PROVIDERS: PCP Internal Medicine; Visit Provider Internal Medicine Gastroenterology
PROC: (CPT 45385; principal; 2024-05-29 10:40)
DX: Z12.11 Encounter for screening for malignant neoplasm of colon (principal); D12.5 Benign neoplasm of sigmoid colon; K62.1 Rectal polyp; K57.30 Diverticulosis of large intestine without perforation or abscess without bleeding; K64.0 First degree hemorrhoids; K63.89 Other specified diseases of intestine; K29.60 Other gastritis without bleeding; K31.9 Disease of stomach and duodenum, unspecified; K20.80 Other esophagitis without bleeding; K21.9 Gastro-esophageal reflux disease without esophagitis; I10 Essential (primary) hypertension; N40.0 Benign prostatic hyperplasia without lower urinary tract symptoms; K40.91 Unilateral inguinal hernia, without obstruction or gangrene, recurrent; Z86.711 Personal history of pulmonary embolism; Z79.899 Other long term (current) drug therapy
CPT/HCPCS: 45385; 45380; 43239; 88305; 88313; 88342; J2003; J2704; J3010

== ENCOUNTER → 2024-05-29 08:39 | Outpatient (BNV) | payer MEDICARE, MEDICAID, SELFPAY | PROVIDERS: PCP Internal Medicine; Visit Provider Internal Medicine Gastroenterology | DX: Z12.11 Encounter for screening for malignant neoplasm of colon (principal); D12.5 Benign neoplasm of sigmoid colon; K62.1 Rectal polyp; K63.89 Other specified diseases of intestine; K21.9 Gastro-esophageal reflux disease without esophagitis; K29.70 Gastritis, unspecified, without bleeding | CPT/HCPCS: 43239; 45380; 45385 ==

== ENCOUNTER 2024-06-18 13:48 | Outpatient (AMB) | payer MEDICARE, MEDICAID, SELFPAY ==
--- OUTSIDE RECORDS SUMMARY | 2024-06-18 13:52 | XMS_ITS | Encounter Summary ---
Author Organization [employer] Address [address] [place] [address] Care Team Providers Care Bullard Operator Name Role Phone Mathew Oleary MD Primary Care Provide r Reason for Visit * Reason Comments Med Refill Encounter Details Date Type Department Care Team ([facility] st Contact Info) Description 11/05/2022 Refill [facility] MED[facility]INE [address] [place], [place] [phone] Mathew Oleary MD [address], [place] [phone] Social History Tobacco Use Types Packs/Day Years Used Date Smoking Tobacco: Never Passive Smoke Exposure: Never Smokeless Tobacco: Never Alcohol Use Standard Drinks/Week Comments Never 0 (1 standard drink = 0.6 oz pur e alcohol) Alcohol Answer Date Recorded Q1: How often do you have a drink containing alc ohol? 1 02/03/2022 Q2: How many drinks containi ng alcohol do you have on a typical day when you are drinking? 0 02/03/2022 Q3: How often do you have six or more drinks on one occasion? 1 02/03/2022 Depression Answer Date Recorded Patient Health Questionnaire-9 Score 0 03/14/2022 Depression Answer Date Recorded Patient Health Questionnaire-2 Score 0 03/14/2022 Sex and Gender Information Value Date Recorded Sex Assigned at Male 12/05/2021 10:16 AM EDT Legal Sex Male 10:16 AM EDT Gender Identity Choose not to disclose 10:16 AM EDT Sexual Orientation Choose not to disclose 2021 10:16 AM EDT documented as of this encounter Plan of Treatment Upcoming Encounters Date Type Department Care Team (Late st Contact Info) Description 07/22/2024 1:15 PM EDT Office Visit [facility] [address] [place] [address] Mathew Oleary MD [address] [place] [address] documented as of this encounter Goals Goal Patient Goal Type Associated Problems Recent Progress Patient-Stated? Author Blood Pressure < 140/90 Blood Pressure 149/80( 025 2:41 PM EDT) No Sarah Bhandari, PharmD documented as of this encounter Visit Diagnoses Not on filedocumented in this encounter Additional Health Concerns Assessment Noted Time PHQ-9 Depression Total Score: 0 03/14/19 23 11:51 AM EST documented as of this encounter Care Teams Bullard Operator Relationship Specialty Start Date End Date Mathew Oleary MD [address] [place] [address] PCP - General Internal Medicine 11/14/13 documented as of this encounter
--- OUTSIDE RECORDS SUMMARY | 2024-06-18 13:52 | XMS_ITS | Clinical Summary ---
Author Organization [employer] Address [address] [place] [address] Care Team Providers Care Learning And Development Consultant Name Role Phone Mathew Oleary MD Primary Care Provide r Allergies No known active allergies Medications oxyCODONE-acetam inophen (Percocet) 5-325 MG tablet Take 1 tablet by mouth every 6 (six) hours if needed. 01/12/20 22 Active sertraline (Zoloft) 25 MG tablet TAKE 1 TABLET BY MOUTH EVERY DAY FOR 30 DAYS 04/18/19 23 Active omeprazole (PriLOSEC) [address] capsule TAKE 1 CAPSULE BY MOUTH EVERY DAY BEFORE A MEAL 90 capsule 1 06/07/19 23 Active famotidine (Pepcid) 40 MG tablet Take 40 mg by mouth at bedtime. 01/10/20 23 Active Creon 93062-64365 units capsule TAKE 1 CAPSULE BY MOUTH FOUR TIMES A DAY WITH MEALS AND SNACKS 01/25/20 23 Active pantoprazole (ProtoNix) 40 MG EC tablet Take 40 mg by mouth in the morning. 02/01/20 23 Active metoprolol succinate XL (Toprol XL) 25 MG 24 hr tablet Take 1 tablet (25 mg) by mouth in the morning. 90 tablet 3 03/05/19 24 Active metoprolol succinate XL (Toprol-XL) 100 MG 24 hr tablet Take 1 tablet (100 mg) by mouth in the morning. 90 tablet 3 03/05/19 24 Active lisinopril 40 MG tabletIndication s:Essential hypertension Take 1 tablet (40 mg) by mouth Once per day. 90 tablet 3 09/11/19 24 Active acetaminophen (Tylenol Extra Strength) 500 MG tablet Take 1 tablet (500 mg) by mouth every 6 (six) hours if needed for mild pain. 60 tablet 03/27/19 25 Active Aspirin Low Dose 81 MG EC tabletIndication s:Essential hypertension TAKE 1 TABLET (81 MG) BY MOUTH IN THE MORNING 90 tablet 05/17/19 25 Active fluticasone (Flonase) 50 MCG/ACT nasal sprayIndications :Viral upper respiratory tract infection ADMINISTER 1 SPRAY INTO EACH NOSTRIL ONCE PER DAY. SHAKE GENTLY. BEFORE FIRST USE, PRIME PUMP. AFTER USE, CLEAN TIP AND REPLACE CAP. 48 mL 05/23/19 25 025 Active fluticasone (Flonase) 50 MCG/ACT nasal sprayIndications :Viral upper respiratory tract infection Administer 1 spray into each nostril Once per day. Shake gently. Before first use, prime pump. After use, clean tip and replace cap. 16 g 1 04/29/19 25 025 Discontinued Active Problems Problem Noted Date Diagnosed Date IBS (irritable bowel syndrome) 03/27/2024 Assessment & Plan (03/27/2024 1:58 PM EST): Under the care of GI, last note 02/20/2024 GI recommended colonoscopy PVD (peripheral vascular disease) 03/27/2024 Assessment & Plan (03/27/2024 1:57 PM EST): Pt followed by Cardiology, also has ascending aorta dilatation Dr. 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 Pt will continue to follow with cardiology in 6 months Obesity, Class I, BMI 30.0-34.9 (see actual BMI) 09/11/2023 Assessment & Plan (03/27/2024 2:02 PM EST): Patient has been counseled and educated about diet and exercise. Personal goal of weight loss discussedPatient has comorbidity of: HTN Dietary Recommendations: Fruits, vegetables, whole grains, protein foods, and fat-free or low-fat dairy products are healthy choices. Eat different types of protein foods in your diet. This can include seafood, lean meats, poultry, beans, peas, lentils, nuts, seeds, soy products, and eggs. Limit foods and beverages higher in added sugars, saturated fat, and sodium. Exercise Recommendations: At least 150 minutes of moderate-intensity physical activity per week, or an equivalent combination of moderate- and vigorous-intensity activity Assessment & Plan (09/11/2023 1:27 PM EDT): Patient has been counseled and educated about diet and exercise. Personal goal of weight loss discussedPatient has comorbidity of: HTN Preventative health care 09/11/2023 Assessment & Plan (03/27/2024 1:59 PM EST): PSA 10/30/2017 2.23, he has a Hx of elevated PSA 10.02 Last visit I ordered a repeat, did not do. Will repeat today Colonoscopy: 10/23/2019 Dr Martins, 5 years had repeat due to hx of TA Vaccines: Pneumovax: 09/19/2007 PCV 13: 12/15/2014 Td: 04/05/2012 Zoster: 05/14/2014 Assessment & Plan (09/11/2023 1:36 PM EDT): PSA 10/30/2017 2.23, he has a Hx of elevated PSA 10.02 Will repeat today Colonoscopy: 10/23/2019 Dr Martins, 5 years had repeat due to hx of TA Vaccines: Pneumovax: 09/19/2007 PCV 13: 12/15/2014 Td: 04/05/2012 Zoster: 05/14/2014 Seborrheic keratosis 03/08/2023 Assessment & Plan (09/11/2023 1:23 PM EDT): Pt had a hyperpigmented , hyperkeratotic lesion on scalp Seen by Dermatology s/p cryotherapy Assessment & Plan (03/08/2023 1:43 PM EST): Pt has a hyperpigmented , hyperkeratotic lesion on scalp Plan: Dermatology referral for excision Syncope 03/12/2022 Assessment & Plan (03/14/2022 4:36 PM EST): Pt here for a follow up seen at our [facility] 09/08/2021 s/p syncopal episode, Etiology ? Pt's described shaking and urinary incontinence EKG and Vitals are after the episode were wnl Pt had No focal neurologic defects per Provider who evaluated him that day CT of brain 12/22/2021 showed: No acute intracranial hemorrhage or territorial infarction. Mild chronic white matter microangiopathy. Pt already following with Cardiology, last seen 09/14/2021 Neuro consult to r/o seizure activity was ordered. He was seen 02/08/2022 and was diagnosed with Alzheimer's disease . Neurology also recommended RPR that was POSITIVE, his titer was 1:1. On subsequent discussion with patient he tells me that when he was living in [place] he tested positive for Syphilis and was treated. Back then he remembers the [facility] was involved. We contacted the [facility] and they were going to try and obtain confirmatory records. I have placed a call with Dr. naik his Neurologist to discuss. Pt tells me that he has a follow up appointment scheduled as well Alzheimer's dementia 03/12/2022 Assessment & Plan (03/27/2024 2:01 PM EST): Diagnosed by Neurology Dr Naik 02/08/2022. Pt was started on Sertraline 25 mg po daily Assessment & Plan (03/08/2023 1:37 PM EST): Diagnosed by Neurology Dr Naik 02/08/2022. Pt tells me he was seen recently And has a follow up with him. Pt's daughter is here wanted to understand a little bit better the situation. I will contact Dr. naik's office to request last note. Pt was started on Sertraline 25 mg po daily Assessment & Plan (09/07/2022 2:08 PM EDT): Diagnosed by Neurology Dr Naik 02/08/2022. Pt tells me he was seen recently And has a follow up with him. Pt's daughter is here wanted to understand a little bit better the situation. I will contact Dr. naik's office to request last note. Pt was started on Sertraline 25 mg po daily Assessment & Plan (04/11/2022 3:54 PM EST): Diagnosed by Neurology Dr Naik 02/08/2022. Pt tells me he was seen recently And has a follow up with him. Pt's daughter is here wanted to understand a little bit better the situation. I will contact Dr. naik's office to request last note. Pt was started on Sertraline 25 mg po daily Assessment & Plan (03/14/2022 4:37 PM EST): Diagnosed by Neurology Dr Naik 02/08/2022. Pt has a follow up with him. I placed a phone call to his office to discuss given his Hx of postivie RPR. Although pt reports he was treated when he was young and the very low titer of 1:1 would be indicative of that Other male erectile dysfunction 03/12/2022 Assessment & Plan (03/12/2022 5:22 PM EST): Pt with previous c/o ED for over 2 years testocerone level free and total 11/12/2015 Normal Left inguinal hernia 12/23/2021 Assessment & Plan (03/12/2022 5:23 PM EST): S/p repair on 02/14/[address] Geiger at [facility] Complex renal cyst 12/23/2021 Assessment & Plan (03/12/2022 5:25 PM EST): Evaluated by Urology in the past Benign prostatic hyperplasia 06/27/2018 Assessment & Plan (03/27/2024 1:59 PM EST): S/P TURP 02/19/2018 Being followed for this by Urology as well as a renal cyst Pt had a CT of his abdomen and pelvis in 03/2011 that showed a large renal cyst and enlarged prostate, there was also a question of a venous structure on the left testicular region for which I referred him to a Urologist Dr Patel III, repeat renal US to check stability of cyst This was done on 12/23/2013 and showed stability Pt was last seen 02/19/2018 PSA ordered last visit, did not do will order again today Assessment & Plan (03/12/2022 5:21 PM EST): S/P TURP 02/19/2018 Being followed for this by Urology as well as a renal cyst Pt had a CT of his abdomen and pelvis in 03/2011 that showed a large renal cyst and enlarged prostate, there was also a question of a venous structure on the left testicular region for which I referred him to a Urologist Dr Patel III, repeat renal US to check stability of cyst This was done on 12/23/2013 and showed stability Pt was last seen 02/19/2018 Essential hypertension 12/15/2014 Overview (09/03/2023): Pharmacotherapy: Updated 09/03/23 - Lisinopril 40mg daily - Metoprolol XL 125mg (100mg+25mg) daily History: Updated 09/03/23 Edgar has been in the [facility] program since 12/31/2018. He is f/u by cardiology aortic dilation, and venous insufficiency. History of PE in 2021, was on eliquis and stopped 1 year. Increase in BP readings (150s/90s) since starting sertraline 25mg usual range is (130s/70s). Has since stopped sertraline and BP is stable. BP today taken at home with BP cuff, 117/76 mmHg. Assessment & Plan (03/27/2024 2:00 PM EST): Pt here for a f/u controlled He is on a regimen of Toprol XL 125 mg po daily and Lisinopril 40 mg po daily Most recent electrolytes, Bun and Creatinine done on: Lab Results Component Value Date NA 143 03/09/2023 NA 140 08/09/2021 K 4.1 03/09/2023 K 4.2 08/09/2021 CL 107 03/09/2023 CL 108 08/09/2021 BUN 16 03/09/2023 BUN 17 (H) 08/09/2021 CREATININE 0.86 03/09/2023 CREATININE 0.89 08/09/2021 were within normal limits. Will repeat Plan: Continue current regimen. patient advised to adhere to a low sodium diet, encouraged about medication compliance, counseled about weight loss. f/u 4 months Assessment & Plan (09/11/2023 1:26 PM EDT): Pt here for a f/u controlled He is on a regimen of Toprol XL 125 mg po daily and Lisinopril 40 mg po daily Most recent electrolytes, Bun and Creatinine done on: 03/09/2023 were within normal limits. Plan: Continue current regimen. patient advised to adhere to a low sodium diet, encouraged about medication compliance, counseled about weight loss. f/u 4 months Assessment & Plan (09/03/2023 5:01 PM EDT): Assessment: - BP is at goal of less than 140/90 per JNC8 guidelines Plan/ Recommendations: - Continue with current therapy and continue future f/u with PCP - Graduated from [facility] program Monitoring: Potassium (mmol/L) Date Value 03/09/2023 4.1 08/09/2021 4.2 BP Readings from Last 2 Encounters: 06/07/23 (!) 150/80 03/08/23 140/82 Assessment & Plan (06/07/2023 2:14 PM EDT): Pt here for a f/u controlled He is on a regimen of Toprol XL 125 mg po daily and Lisinopril 40 mg po daily Most recent electrolytes, Bun and Creatinine done on: 03/09/2023 were within normal limits. Plan: Continue current regimen. Pt tells me at home his systolic BP is in 130s but when he comes to see me he gets nevous patient advised to adhere to a low sodium diet, encouraged about medication compliance, counseled about weight loss. f/u 3 months Assessment & Plan (03/08/2023 1:03 PM EST): Pt here for a f/u controlled He is on a regimen of Toprol XL 125 mg po daily and Lisinopril 40 mg po daily Most recent electrolytes, Bun and Creatinine done on: 08/09/2021 were within normal limits. He has yet to do the blood work Plan: Continue current regimen patient advised to adhere to a low sodium diet, encouraged about medication compliance, counseled about weight loss. f/u 3 months Assessment & Plan (03/05/2023 3:02 PM EST): Assessment: - BP is at goal of less than 140/90 per JNC8 Plan: - Continue with current therapy and monitoring Assessment & Plan (09/07/2022 2:09 PM EDT): Pt here for a f/u controlled He is on a regimen of Toprol XL 125 mg po daily and Lisinopril 40 mg po daily Most recent electrolytes, Bun and Creatinine done on: 08/09/2021 were within normal limits. Plan: Continue current regimen patient advised to adhere to a low sodium diet, encouraged about medication compliance, counseled about weight loss. f/u 3 months Assessment & Plan (07/17/2022 2:07 PM EDT): - No BP readings today; reporting increased sleep with sertraline; waking up around 11am and feeling tired. Advised to follow-up with Dr. Naik especially as it seems to also be affecting BP - Continue with current therapy. Refills provided for lisinopril and metoprolol. Next f/u in 6 months. Assessment & Plan (05/15/2022 2:32 PM EDT): BP is not at goal of less than 140/90 per JNC8 guidelines. Continue with current therapy and monitoring Follow-up in 2 months/ discuss with Dr. Naik on trial period off sertraline to check BP and suggest alt. Therapy if truly affecting BP. Assessment & Plan (04/11/2022 3:20 PM EST): Pt here for a f/u controlled He is on a regimen of Toprol XL 75 mg po daily (started by Cardiology) and Lisinopril 40 mg po daily Most recent electrolytes, Bun and Creatinine done on: 08/09/2021 were within normal limits. Plan: Continue current regimen patient advised to adhere to a low sodium diet, encouraged about medication compliance, counseled about weight loss. f/u 3 months Assessment & Plan (03/12/2022 5:20 PM EST): Pt here for a f/u controlled He is on a regimen of Toprol XL 75 mg po daily (started by Cardiology) and Lisinopril 40 mg po daily Most recent electrolytes, Bun and Creatinine done on: 08/09/2021 were within normal limits. Plan: Continue current regimen patient advised to adhere to a low sodium diet, encouraged about medication compliance, counseled about weight loss. f/u 3 months Rosacea 03/27/2013 Assessment & Plan (03/12/2022 5:23 PM EST): Used to be under the care of Dr thomas, Last seen 10/2013 pt had a purplish, area of hyperpigmentation on the bridge of his nose. She diagnosed him with rosacea and recommended to f/u with her. Obstructive sleep apnea syndrome 01/15/2012 Assessment & Plan (03/08/2023 1:39 PM EST): Encouraged to use his Cpap Assessment & Plan (03/12/2022 5:24 PM EST): Encouraged to use his Cpap Tension-type headache 09/04/2011 Chronic obstructive lung disease 07/19/2011 Assessment & Plan (03/27/2024 2:01 PM EST): PFT'S 05/23/2007 showed mild to moderate degree of obstructive airway disorder with no reversibility after bronchodilator therapy Pt has never smoked but has been exposed to second hand smoking. Continues On Flovent 110 mcg 1 puff BID and Pro-air MDI qid prn. Assessment & Plan (06/07/2023 2:08 PM EDT): PFT'S 05/23/2007 showed mild to moderate degree of obstructive airway disorder with no reversibility after bronchodilator therapy Pt has never smoked but has been exposed to second hand smoking. Continues On Flovent 110 mcg 1 puff BID and Pro-air MDI qid prn. Varicose veins of lower extremity 02/05/1959 Assessment & Plan (09/11/2023 1:25 PM EDT): Last seen by [facility] 08/28/2023 Gastritis 02/05/1959 Resolved Problems Problem Noted Date Diagnosed Date Resolved Date Multiple subsegmental pulmon joselin emboli without acute cor pulmonale 03/12/2022 03/27/2024 Assessment & Plan (03/08/2023 1:04 PM EST): Pt here for a f/u hx of Bilateral small segmental pulmonary emboli with no evidence of right heart strain. Patient declined Hospitalization and he was sent home on Eliquis Pt evaluated by Hematology, last seen 11/21/2022 hypercoagulable work up unremarkable . Eliquis discontinued after 1 year of treatment Assessment & Plan (09/07/2022 2:10 PM EDT): Pt here for a f/u hx of Bilateral small segmental pulmonary emboli with no evidence of right heart strain. Patient declined Hospitalization and he was sent home on Eliquis Pt evaluated by Hematology, last seen 05/19/2022 she started a hypercoagulable work up and recommended anticoagulation for 6 more months and f/u with her in 3 months Assessment & Plan (03/12/2022 5:19 PM EST): Pt here for a f/u hx of Bilateral small segmental pulmonary emboli with no evidence of right heart strain. Patient declined Hospitalization and he was sent home on Eliquis Pt evaluated by Hematology, last seen 11/18/2021 she started a hypercoagulable work up and recommended anticoagulation for 6 more months and f/u with her in 3 months Encounters Date Type Department Care Team Description 05/29/2024 Orders Only GENERIC EXTERNAL DATA DEPARTMENT Provider, Generic External Data 05/20/[address] [facility] [address] [place] [address] Ira Holland NP Viral upper respiratory tract infection 05/16/[address] [facility] [address] [place] [address] Mathew Oleary MD Essential hypertension 04/28/2024 1:40 PM EDT Office Visit [facility] [address] [place] [address] Ira Holland NP Viral upper respiratory tract infection (Primary Dx); Cough in adult patient; Elevated blood pressure reading in office with diagnosis of hypertension 04/09/[address] [facility] [address] [facility] [place] [address] Mathew Oleary MD 04/02/[address] [facility] [address] [facility] [place] [phone] Mathew Oleary MD Pain 03/27/2024 2:00 PM EST Office [facility] [address] [facility] [place] [address] Mathew Oleary MD Essential hypertension (Primary Dx); Irritable bowel syndrome, unspecified type; PVD (peripheral vascular disease) ([facility]); Benign prostatic hyperplasia with urinary frequency; Mild Alzheimer's dementia without behavioral disturbance, psychotic disturbance, mood disturbance, or anxiety, unspecified timing of dementia onset ([facility]); Chronic obstructive pulmonary disease, unspecified COPD type ([facility]/H[facility]); Obesity, Class I, BMI 30.0-34.9 (see actual BMI); Preventative health care; Dietary counseling; Exercise counseling; Encounter for immunization 03/27/2024 Travel from Last 3 Months Immunizations Immunization Administration Dates Next Due Influenza injectable quadriv alent preservative free 12/06/2021,11/06/2019 Influenza, IIV3, injectable 01/21/2009 Influenza, Split (incl. chauncey fied surface antigen) 11/28/2012 Influenza, seasonal, injecta ble, preservative free 03/27/2024 Moderna Covid-19 Vaccine 12+ 06/10/2020,05/14/19 21 Pneumococcal Conjugate PCV 13 12/15/2014 Pneumococcal Polysaccharide PPSV23 08/10/2016, TD (adult), 2 Lf tetanus tox oid, preservative free, adsorbed 09/11/2023,04/05/2012,03/27/2001 Zoster, Recombinant 08/10/2022,12/12/2021 Zoster, live 05/14/2014 Social History Tobacco Use Types Packs/Day Years Used Date Smoking Tobacco: Never Passive Smoke Exposure: Never Smokeless Tobacco: Never Tobacco Cessation:Counseling Given: Not Answered Alcohol Use Standard Drinks/Week Comments Never 0 [...] Date Recorded Patient Health Questionnaire-9 Score 0 09/11/2023 Patient Health Questionnaire-9 Score 0 09/11/2023 Last PHQ-9: Questionnaire Data Not on file 0 09/11/2023 Housing Stability Answer Date Recorded What is your housing situation today? I have gifty alarcon 06/07/[address] you li ve. Do you have problems with any of the following? None of the above 06/07/2023 Food Insecurity Answer Date Recorded Within the past 12 months, y ou worried that your food would run out before you got money to buy more: Never True 06/07/2023 Within the past 12 months,th e food you bought just didn't last and you didn't have enough money to get more: Never True 03/2023 Transportation Answer Date Recorded In the past 12 months, has l ack of transportation kept you from medical appts, meetings, work or from getting things needed for daily living? No 06/07/2023 Utilities Answer Date Recorded In the past 12 months, has t he electric, gas, oil or water company threatened to shut off services in your home? No 06/07/2023 Depression Answer Date Recorded Patient Health Questionnaire-2 Score 0 09/11/2023 Internet Access Answer Date Recorded Internet Access Q1 No 03/11/2024 Internet Access Q2 I do not want or need it 05/2024 Sex and Gender Information Value Date Recorded Sex Assigned at Male 12/05/2021 10:16 AM EDT Legal Sex Male 10:16 AM EDT Gender Identity Choose not to disclose 10:16 AM EDT Sexual Orientation Choose not to disclose 2021 10:16 AM EDT Last Filed Vital Signs Vital Sign Reading Time Taken Comments Blood Pressure 149/80 04/28/2024 2:41 PM EDT Pulse 80 04/28/2024 1:22 PM EDT Temperature 36.9 ??C (98.5 ??F) 04/28/2024 1:22 PM ED T Respiratory Rate 18 04/28/2024 1:22 PM EDT Oxygen Saturation 98% 04/28/2024 1:22 PM EDT Inhaled Oxygen Concentration - - Weight 107 kg (235 lb) 04/28/2024 1:22 PM EDT Height 188 cm (6' 2 ) 03/27/2024 1:45 PM EST Body Mass Index 30.17 03/27/2024 1:45 PM EST Plan of Treatment Upcoming Encounters Date Type Department Care Team (Late st Contact Info) Description 07/22/2024 1:15 PM EDT Office Visit [facility] [address] [place], [place] [phone] Mathew Oleary MD [address] [place], [place] [phone] Health Maintenance Due Date Last Done Comments RSV Patients and Patients Aged 60 years or older (1 - 1-dose 75+ series) 2017 DTaP/Tdap/Td Vaccines (1 - Tdap) 09/12/2023 09/11/2023, 04/05/2012, 03/27/2001 COVID-19 Vaccine ( - season) 2023 06/10/2020, 05/13/2020 Depression Screening 09/10/2024 09/11/2023, 09/11/19 SDOH Screening 03/11/2025 03/11/2024 Alcohol/Substance Use Screening 03/27/2025 03/27/2024 Tobacco Screening 04/29/2025 04/29/2024 Lipid Panel 03/09/2028 03/09/2023, 02/24/2020 Pneumococcal Vaccine: 50+ Years Completed 08/10/2016, 12/15/2014, 09/19/2007 Zoster Vaccines Completed 08/10/2022, 08/2021, 05/14/2014 Influenza Vaccine Completed 03/27/2024, , 11/06/2019, Additional history exists HIB Vaccines Aged Out No longer eligi ble based on patient's age to complete this topic HPV Vaccines Aged Out No longer eligi ble based on patient's age to complete this topic Hepatitis A Vaccines Aged Out No long er eligible based on patient's age to complete this topic Hepatitis B Vaccines Aged Out No long er eligible based on patient's age to complete this topic IPV Vaccines Aged Out No longer eligi ble based on patient's age to complete this topic Meningococcal Vaccine Aged Out No alvarez edwin eligible based on patient's age to complete this topic RSV under 20 months Aged Out No longe r eligible based on patient's age to complete this topic Rotavirus Vaccines Aged Out No longer eligible based on patient's age to complete this topic Goals Goal Patient Goal Type Associated Problems Recent Progress Patient-Stated? Author Blood Pressure < 140/90 Blood Pressure 149/80( 025 2:41 PM EDT) No Sarah Bhandari PharmD Procedures Procedure Name Priority Date/Time Associated Diagnosis Comments HEMATOXYLIN AND EOSIN STAIN Routine 05/29/2024 10:24 AM EDT POCT INFLUENZA B (ID NOW RAPID MOLECULAR) Routine 04/28/2024 1:47 PM EDT Cough in adult patient POCT INFLUENZA A (ID NOW RAPID MOLECULAR) Routine 04/28/2024 1:47 PM EDT Cough in adult patient POCT RAPID COVID ANTIGEN Routine 04/28/2024 1:30 PM EDT Cough in adult patient LIPID PANEL WITH REFLEX TO DIRECT LDL Routine 03/09/2023 10:45 AM EST Essential hypertension from Last 3 Months or Most Recently Relevant to Health Maintenance Results * Hematoxylin and Eosin Stain (05/29/2024 10:24 AM EDT) 05/29/2024 10:2 4 AM EDT 05/29/2024 11:45 AM EDT [facility] - 06/02/2024 2:55 PM EDT ----- ------- Name: UriahEdgar ?Age/Sex: 83/M ? : 1940 Unit#: [id number] ?? Attend Dr: Antwon Newman MD ?Re05/29/24 ?Status: DEP SDC ? Location: HO.SSS ?Disch: ? ----- ------- SPEC : [id number] ? RECD: 05/29/24-1145 ? STATUS: ??SOUT ? REQ NUM: [id number] ? MATTIE: 05/29/24-1024 ? SUBM DR: Antwon Newman MD ? ENTERED: ??05/29/24-997 ?SP TYPE: Surgical ? OTHR DR: Mathew Quarles MD ?? ORDERED: ??HE /, Gross Micro L4/7, IHC, Special st. 2/2, H. pylori, AB/PAS/2 ? Diagnosis ?? A. ??Stomach, biopsy: ??Antral-type and oxyntic mucosa with mild chronic inactive ?? inflammation; no Helicobacter organisms seen. ? B. ??EG junction, biopsy: ?- Cardiofundic-type mucosa with moderate chronic inactive inflammation; no intestinal ?? metaplasia seen. ?- No squamous epithelium present. ? C. ??Esophagus, distal, biopsy: ??Active esophagitis (few eosinophils and neutrophils). ? D. ??Esophagus, proximal, biopsy: ??Squamous epithelium within normal limits; no ?? inflammation seen. ? E. ??Colon, right, biopsy: ??Melanosis coli; otherwise colonic mucosa within normal limits. ? F. ??Colon, sigmoid, polypectomy: ??Tubular adenoma; negative for high-grade dysplasia or ?? carcinoma. ? G. ??Rectum, polypectomy: ??Hyperplastic mucosal polyp. ?Clinical History Pre-Op Dx: ??Screening, GERD Post-Op Dx: Gastritis, melanosis coli, diverticulosis ?Microscopic Description A-G. ??Microscopic sections examined. ??No metaplastic changes are seen, supported by AB/PAS stains (A and B); no Helicobacter organisms are seen, supported by H. pylori immunostain (A). ? Material Received ?? A. Stomach bx's ?? B. EG junction ?? C. Distal esophagus ?? D. Proximal esophagus ?? E. Right sided colon bx's ?? F. Sigmoid polyp ?? G. Rectal polyp ? CONTINUED ON NEXT PAGE ----- ------- Name: Edgar Kruse ?Age/Sex: 83/M ? : 1940 Unit#: [id number] ?? Attend Dr: Antwon Newman MD ?Re05/29/24 ?Status: DEP SDC ? Location: HO.SSS ?Disch: ? ----- ------- SPEC : [id number] ? RECD: 05/29/24-1144 ? STATUS: ??SOUT ? REQ NUM: [id number] ? MATTIE: 05/29/24-1024 ? SUBM DR: Antwon Newman MD ? ENTERED: ??05/29/24-115 ?SP TYPE: Surgical ? OTHR DR: Mathew Quarles MD ?? ORDERED: ??HE /, Gross Micro L4/7, IHC, Special st. 2/2, H. pylori, AB/PAS/2 ? Gross Description Received in seven parts. Part A: ??Received in formalin labeled ?stomach bx's? are 2 carver-pink irregular tissue fragments each measuring 0.3 cm, submitted in toto in a cassette labeled A. Part B: ??Received in formalin labeled ?EG junction? are 2 prater-carver irregular tissue fragments each measuring 0.15 cm, submitted in toto in a cassette labeled B. Part C: ??Received in formalin labeled ?distal esophagus? are 3 prater- white thin and delicate irregular tissue fragments ranging from 0.15-0.2 cm, submitted in toto in a cassette labeled C. Part D: ??Received in formalin labeled ?proximal esophagus? are 2 prater-white irregular tissue fragments measuring less than 0.1 and 0.25 cm, submitted in toto in a cassette labeled D. Part E: ??Received in formalin labeled ?right sided colon bx's are 2 carver- pink rectangular tissue fragments each measuring 0.3 cm, submitted in toto in a cassette labeled E. Part F: ??Received in formalin labeled ?sigmoid polyp? is a 0.9 x 0.5 x 0.4 cm congested and hemorrhagic, carver-red polyp with an attached 0.4 cm carver stalk. ??The specimen is sectioned and entirely submitted in tot in a cassette labeled F. Part G: ??Received in formalin labeled ?rectal polyp? is a 0.25 cm carver-pink irregular tissue fragment, submitted in toto in a cassette labeled G. ??CEDS Special studies ordered and performed: Immunostain for H. pylori on A; AB/PAS stains on A and B Copies To: ?? Mathew Quarles MD ?? [facility] ?? [address] ?? [place] ?? [phone] ?? Antwon Newman MD ?? [facility] ?? [address] ?? [place], [place] ?? [phone] ? CONTINUED ON NEXT PAGE ----- ------- Name: Edgar Kruse ?Age/Sex: 83/M ? : 1940 Unit#: [id number] ?? Attend Dr: Antwon Newman MD ?Re05/29/24 ?Status: DEP SDC ? Location: HO.SSS ?Disch: ? ----- ------- SPEC : [id number] ? RECD: 05/29/24-1140 ? STATUS: ??SOUT ? REQ NUM: [id number] ? MATTIE: 05/29/24-1024 ? SUBM DR: Antwon Newman MD ? ENTERED: ??05/29/24-115 ?SP TYPE: Surgical ? OTHR DR: Mathew Quarles MD ?? ORDERED: ??HE /, Gross Micro L4/7, IHC, Special st. 2/, H. pylori, AB/PAS/2 ? ----- ------- Signed (signature on file) Gonzales Alex MD 06/02/24 3275 ? ----- ------- ? END OF REPORT ? us Generic External Data Provider LAB BLOOD ORDERAB LES Final Result [facility] [address] [place] [phone] * Influenza B (ID NOW Rapid Molecular) (04/28/2024 1:47 PM EDT) Influenza B Negative Negative, Indeterminate [facility] Swab 04/28/2024 1:47 PM EDT Ira Holland NP POINT OF CARE TEST ENTER/EDIT O RDERABLES Final Result [facility] [address] [place] [address] [phone] * Influenza A (ID NOW Rapid Molecular) (04/28/2024 1:47 PM EDT) Pathologist [facility] Influenza A Negative Negative, Indeterminate [facility] Swab 04/28/2024 1:47 PM EDT us Ira Appram KILN PULLER POINT OF CARE TEST ENTER/EDIT O RDERABLES Final Result Performing Organization Address City/[facility]/ZIP Co de Phone Number [facility] [address] [place] [address] [phone] * POCT Rapid COVID Ag (04/28/2024 1:30 PM EDT) Pathologist [facility] Rapid COVID Ag Negative Swab 04/28/2024 1:30 PM EDT us Ira Appram KILN PULLER POINT OF CARE TEST ENTER/EDIT O RDERABLES Final Result * (ABNORMAL) Lipid Panel with Reflex to Direct LDL (03/09/2023 10:45 AM EST) Pathologist [facility] Triglycerides 104 <150 mg/dL [facility] Comment:Desirable Triglyceri de: less than 150 mg/dLBorderline High Triglyceride 150-199 mg/dLHigh Triglyceride: 200-499 mg/dLVery High Triglyceride: greater than or equal to 5OO mg/dL Cholesterol 173 <200 mg/dL [facility] Comment:Desirable Cholestero l: less than 200 mg/dLBorderline High Cholesterol: 200-239 mg/dLHigh Cholesterol: greater than 239 mg/dL LDL Cholesterol Calculated 105(H) <100 mg/dL [facility] Comment:Desirable LDL: less than 100 mg/dLNear Optimal/Above Optimal LDL: 110- 129 mg/dLBorderline High LDL: 130-159 mg/dLHigh LDL: 160-189 mg/dLVery High LDL: greater than or equal to 190 mg/dL HDL Cholesterol 48 >40 mg/dL [facility] Comment:Desirable HDL: great er than 40 mg/dL Note: This HDL assay may give artificially low results in patients with liver disease. Blood 03/09/2023 10:4 5 AM EST 03/09/2023 10:45 AM EST us Mathew Lynch MD LAB BLOOD ORDERABLES Final Result [facility] [address] [place] [address] [phone] from Last 3 Months or Most Recently Relevant to Health Maintenance Insurance MEDICARE [facility] Care Teams Learning And Development Consultant Relationship Specialty Start Date End Date Mathew Oleary MD [address] [place] [address] [place] [address] PCP - General Internal Medicine 11/14/13
--- OUTSIDE RECORDS SUMMARY | 2024-06-18 13:52 | XMS_ITS | Encounter Summary ---
Author Organization [employer] Address [address] [facility] 7[address] [place] [address] Care Team Providers Care Coat Presser Name Role Phone Mathew Oleary MD Primary Care Provide r Reason for Visit * Reason Comments Med Refill Encounter Details Date Type Department Care Team ([facility] st Contact Info) Description 04/02/2024 Refill [facility] [address] [place], [place] [phone] Mathew Oleary MD [address] [place], [place] [phone] Pain Social History Tobacco Use Types Packs/Day Years [...] Description 07/22/2024 1:15 PM EDT Office Visit [facility] [address] [place] [phone] Mathew Oleary MD [address] [place] [phone] documented as of this encounter Goals Goal Patient Goal Type Associated Problems Recent Progress Patient-Stated? Author Blood Pressure < 140/90 Blood Pressure 149/80( 025 2:41 PM EDT) No Sarah Bhandari, LuisD documented as of this encounter Visit Diagnoses Diagnosis Pain Generalized pain documented in this encounter Additional Health Concerns Assessment Noted Time PHQ-9 Depression Total Score: 0 09/11/19 24 1:17 PM EDT documented as of this encounter Care Teams Coat Presser Relationship Specialty Start Date End Date Mathew Oleary MD [address] [facility] [place] [address] PCP - General Internal Medicine 11/14/13 documented as of this encounter
--- NOTE | 2024-06-18 14:30 | A.OFFVIS_ITS ---
Vital Signs 06/18/24 14:42 Height 6 ft 2 in Weight 230 lb BMI 29.5 BP 134/80 Blood Pressure Location Rt brachial Position Sitting Pulse 62 Pulse Source Pulse Oximeter Pulse Oximetry (%) 96 Oxygen Delivery Method Room Air Intake Visit Reasons: s/p double Newman Intake Note: ESTABLISHED PATIENT for mgmt of GERD. S/P Yojana manojЕлена Trent. 05/29/2024. CC; Pt denies any GI sx or concerns at this time. Comments that Rx for conditions are effective for sx mgmt. Milk Bottler Required: No Accompanied by: Self / Same As Patient Allergies No Known Allergies [No Known Allergies*] Allergy (Verified 06/18/24 14:32) HPI HPI s/p double Newman: Details: LAST VISIT: Office Visit (Signed) - 02/20/24 13:15 Postprandial abdominal bloating IBS (irritable bowel syndrome) Epigastric discomfort GERD (gastroesophageal reflux disease) Screen for colon cancer Plan Continue pantoprazole daily. Avoid dietary triggers and late night snacking. Staying upright for minimum 3 hours after meals discussed with patient. Continue bowel regimen. Increase fluid intake and activity to promote better bowel motility. Patient denies any issues with anesthesia in the past. Currently on low-dose aspirin. Denies any cardiac or respiratory symptoms. What to expect before during and after procedure discussed with patient. Patient will go for upper endoscopy as well as colonoscopy. Stressed the importance of good bowel prep day before procedure as well as went over clear liquid diet. Patient will be seen after the procedure. He will call our office if he will any GI concerning symptoms. He is agreeable to this plan and instructions. He was given the opportunity to ask questions and all questions answered ? thank you for allowing me to participate in his care Medications New bisacodyl (Dulcolax (bisacodyl)) take 4 tabs at noon the day before your colonoscopy 20 mg (4 x 5 mg) PO ONCE 4 tabs 0RF 1 day Z12.11 polyethylene glycol 3350 (Miralax) As directed by gastroenterology department at [facility] 238 grams PO ONCE 238 grams 0RF Z12.11 cyclobenzaprine 5 mg PO BEDTIME PRN 7 tabs 0RF muscle spasm Findings: Larynx:normal Esophagus: GE junction at 42 cm, diaphragm hiatus at 42 cm, normal, bx taken from GEJ, distal and proximal esophagus Stomach: mild erythema with scarring. Biopsies were obtained. Grade 2 flap valve on retroflexed examination of the cardia. Duodenum: Normal bulb and descending duodenum, Intervention: Biopsies as noted above, COLONOSCOPY Instrument: Olympus variable stiffness pediatric scope 190L Colonoscopy Monitoring: Vital signs and clinical assessment, continuous EKG monitoring, Pulse oximetry, Carbon Dioxide monitoring and blood pressure monitoring were done throughout the procedure. Colon withdrawal time was 8 minutes. Procedure: The patient was placed in the left lateral decubitis position and pre-procedure medications were administered. After a digital rectal examination of the ano-rectum, the video colonoscope was inserted into the rectum and advanced through the colon to the cecum/TI. The colonoscope was slowly withdrawn in a retrograde panoramic fashion and the colon mucosa was carefully examined including a retroflexed view of the rectum. Findings and interventions are described below. Procedure Difficulty:moderate Findings: Terminal Ileum-normal Cecum: melanosis coli with granular mucosa, bx taken Ascending Colon: melanosis coli Transverse Colon -normal Descending Colon:normal Sigmoid Colon: moderate diverticulosis, 8-10 mm sessile polyp removed with cold snare Rectum: Retroflexion with medium sized internal hemorrhoids, grade I, 4-5 mm sessile polyp removed with cold forceps Anorectum - normal Colon preparation: [place] Bowel Preparation Scale Right colon; 2 Transverse colon: 2 Left colon; 2 (0 = Unprepared colon segment with mucosa not seen due to solid stool that cannot be cleared. 1 = Portion of mucosa of the colon segment seen, but other areas of the colon segment not well seen due to staining, residual stool and/or opaque liquid. 2 = Minor amount of residual staining, small fragments of stool and/or opaque liquid, but mucosa of colon segment seen well. 3 = Entire mucosa of colon segment seen well with no residual staining, small fragments of stool or opaque liquid) Impression and Post Procedure Diagnosis: Endoscopy Findings: gastritis Colonoscopy Findings: melanosis coli diverticulosis colon polyps x 2 internal hemorrhoids Plan: Await Pathology results Repeat Colonoscopy in 5 years if health allows or earlier if clinically indicated High fiber diet leaflet avoid straining at stool, epsom salts and sitz bath, anusol supps or cream UPPER ENDOSCOPY AND COLONOSCOPY Findings: Larynx:normal Esophagus: GE junction at 42 cm, diaphragm hiatus at 42 cm, normal, bx taken from GEJ, distal and proximal esophagus Stomach: mild erythema with scarring. Biopsies were obtained. Grade 2 flap valve on retroflexed examination of the cardia. Duodenum: Normal bulb and descending duodenum, Intervention: Biopsies as noted above, COLONOSCOPY Instrument: Olympus variable stiffness pediatric scope 190L Colonoscopy Monitoring: Vital signs and clinical assessment, continuous EKG monitoring, Pulse oximetry, Carbon Dioxide monitoring and blood pressure monitoring were done throughout the procedure. Colon withdrawal time was 8 minutes. Procedure: The patient was placed in the left lateral decubitis position and pre-procedure medications were administered. After a digital rectal examination of the ano-rectum, the video colonoscope was inserted into the rectum and advanced through the colon to the cecum/TI. The colonoscope was slowly withdrawn in a retrograde panoramic fashion and the colon mucosa was carefully examined including a retroflexed view of the rectum. Findings and interventions are described below. Procedure Difficulty:moderate Findings: Terminal Ileum-normal Cecum: melanosis coli with granular mucosa, bx taken Ascending Colon: melanosis coli Transverse Colon -normal Descending Colon:normal Sigmoid Colon: moderate diverticulosis, 8-10 mm sessile polyp removed with cold snare Rectum: Retroflexion with medium sized internal hemorrhoids, grade I, 4-5 mm sessile polyp removed with cold forceps Anorectum - normal Colon preparation: [place] Bowel Preparation Scale Right colon; 2 Transverse colon: 2 Left colon; 2 (0 = Unprepared colon segment with mucosa not seen due to solid stool that higinio ot be cleared. 1 = Portion of mucosa of the colon segment seen, but other areas of the colon segment not well seen due to staining, residual stool and/or opaque liquid. 2 = Minor amount of residual staining, small fragments of stool and/or opaque liquid, but mucosa of colon segment seen well. 3 = Entire mucosa of colon segment seen well with no residual staining, small fragments of stool or opaque liquid) Impression and Post Procedure Diagnosis: Endoscopy Findings: gastritis Colonoscopy Findings: melanosis coli diverticulosis colon polyps x 2 internal hemorrhoids Plan: Await Pathology results Repeat Colonoscopy in 5 years if health allows or earlier if clinically indicated High fiber diet leaflet avoid straining at stool, epsom salts and sitz bath, anusol supps or cream PATHOLOGY: Diagnosis A. Stomach, biopsy: Antral-type and oxyntic mucosa with mild chronic inactive inflammation; no Helicobacter organisms seen. B. EG junction, biopsy: - Cardiofundic-type mucosa with moderate chronic inactive inflammation; no intestinal metaplasia seen. - No squamous epithelium present. C. Esophagus, distal, biopsy: Active esophagitis (few eosinophils and neutrophils). D. Esophagus, proximal, biopsy: Squamous epithelium within normal limits; no inflammation seen. E. Colon, right, biopsy: Melanosis coli; otherwise colonic mucosa within normal limits. F. Colon, sigmoid, polypectomy: Tubular adenoma; negative for high-grade dysplasia or carcinoma. G. Rectum, polypectomy: Hyperplastic mucosal polyp TODAY'S VISIT Patient is here today for follow-up and to discuss upper endoscopy and colonoscopy results. Patient denies any ill effects from the prep, anesthesia or procedure itself. Patient reports that he has been doing fairly well. Moves his bowels without any issues. 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 He is currently taking senna we will stop that and start Dulcolax. Patient denies any dyspepsia, dysphagia or odynophagia. He is currently taking pantoprazole in the morning and famotidine at bedtime. Patient reports that he takes it daily. Mild inactive chronic inflammation found in his stomach. Active esophagitis found in his esophagus. Patient admits to eating lots of sweets. Patient also reports to be eating late at night, not big meals only snacks like cookies or ice cream. [facility] Medical History (Updated 06/20/24 @ 21:22 by Linda Hand, [facility]) Tubular adenoma of colon Left groin pain Epidermal cyst COVID-19 vaccine series completed BPH (benign prostatic hyperplasia) GERD (gastroesophageal reflux disease) HTN (hypertension) Recurrent inguinal hernia Lower abdominal pain Surgical History History of removal of cyst History of removal of cyst History of left inguinal hernia repair Hx of varicose vein ligation and stripping H/O colonoscopy History of hernia surgery Hx of cystoscopy Hx of transurethral resection of prostate History of hernia surgery Family History Sister Breast cancer Social History Household Members: Spouse Housing: House Are you a primary director of managed care to a significant other at home: No Do you presently have visiting nurse or other home services: No Alcohol intake: never Patient Tobacco Use Status: Never used Tobacco service: No Current occupational status: retired Review of Systems Const Denies weight gain and Denies weight loss ENT Reports no additional complaints, Denies dysphagia and Denies odynophagia Card Reports no additional complaints Resp Reports no additional complaints GI Denies abdominal pain, Denies belching, Denies melena, Denies bloating, Denies change in bowel habits, Denies dysphagia, Denies excessive flatus, Denies dyspepsia, Denies heartburn, Denies diarrhea, Denies loose stools, Denies nausea, Denies odynophagia and Denies vomiting Reports no additional complaints Musc Reports no additional complaints Neuro Reports no additional complaints Psych Reports no additional complaints Endo Reports no additional complaints Physical Exam Vital Signs: Last Vital Signs Pulse 62 06/18/24 14:42 BP 134/80 06/18/24 14:42 Pulse Ox 96 06/18/24 14:42 Oxygen Delivery Method Room Air 06/18/24 14:42 BMI result Body Mass Index 29.5 Const General: healthy appearing and no acute distress Nutritional Appearance: obese Orientation/consciousness: patient oriented x3 Resp Effort & Inspection: normal respiratory effort, able to speak in complete sentences, no tracheal deviation and symmetric chest movement Auscultation: clear to auscultation bilaterally Cardio Rate: regular rate GI Inspection: Yes normal to inspection, No distended and Yes obesity Palpation (GI): Soft to palpation, not firm, nontender and No hepatosplenomegaly present Auscultation: normal bowel sounds General: Yes no CVA tenderness Back/Spine/Pelvis Back: no CVA tenderness Skin General skin exam: elasticity normal, turgor normal and dry skin Neuro General: patient oriented x3 Psych Appearance: grossly normal Mental Status: mental status grossly normal Assessment & Plan Assessment & Plan (1) Tubular adenoma of colon: Code(s): D12.6 - Benign neoplasm of colon, unspecified Category: Medical (2) Postprandial abdominal bloating: Code(s): R14.0 - Abdominal distension (gaseous) (3) IBS (irritable bowel syndrome): Code(s): K58.9 - Irritable bowel syndrome, unspecified Qualifiers: Irritable bowel syndrome type: without diarrhea Qualified Code(s): K58.9 - Irritable bowel syndrome, unspecified (4) Epigastric discomfort: Code(s): R10.13 - Epigastric pain (5) GERD (gastroesophageal reflux disease): Code(s): K21.9 - Gastro-esophageal reflux disease without esophagitis Qualifiers: Esophagitis presence: with esophagitis Esophagitis bleeding: without hemorrhage Qualified Code(s): K21.00 - Gastro-esophageal reflux disease with esophagitis, without bleeding Plan Patient will continue taking pantoprazole and famotidine. Patient was encouraged to avoid dietary triggers and late night snacking. Patient was encouraged to avoid eating sweets. Active esophagitis found on biopsy. Tubular adenoma found without high-grade dysplasia or carcinoma. Recommendation for colonoscopy if in good health 5 years. Melanosis coli found on biopsy. Patient will stop taking senna and will start taking Dulcolax daily. Increase fluid intake and activity to promote better bowel motility. He is agreeable to current plan of care and verbalizes understanding of instructions. He was given the opportunity to ask questions and all questions answered. Thank you for allowing me to participate in his care Medications: New bisacodyl (Dulcolax (bisacodyl)) 10 mg (2 x 5 mg) PO BEDTIME 180 tabs 4RF Refilled pantoprazole 40 mg PO DAILY 90 tabs 1RF famotidine 40 mg PO BEDTIME 90 tabs 1RF K21.9 - Gastro-esophageal reflux disease without esophagitis Discontinued sennosides (senna) Discontinued Reason: Doctor's Order 17.2 mg (2 x 8.6 mg) PO BEDTIME 60 tabs 3RF for constipation K59.00 - Constipation, unspecified Coding Level of Care Code Est Pt Level 4 (28439) Complex EM visit Add On G2211 Diagnoses Tubular adenoma of colon D12.6 Postprandial abdominal bloating R14.0 Irritable bowel syndrome without diarrhea K58.9 Irritable bowel syndrome type: without diarrhea Epigastric discomfort R10.13 Gastroesophageal reflux disease with esophagitis without hemorrhage K21.00 Esophagitis presence: with esophagitis Esophagitis bleeding: without hemorrhage Time Spent (min) 35 Comment 25 minutes spent with patient and additional 10 minutes spent reviewing his records
[2024-06-18 14:42] VITALS: BP 134/80; PULSE 62; O2SAT 96; BMI 29.5
== END 2024-06-18 15:06 | disposition home or self-care (01) ==
LOC: HO.HGI 13:49
PROVIDERS: PCP Internal Medicine; Visit Provider Nurse Practitioner Family
DX: D12.6 Benign neoplasm of colon, unspecified (principal); R14.0 Abdominal distension (gaseous); K58.9 Irritable bowel syndrome, unspecified; R10.13 Epigastric pain; K21.00 Gastro-esophageal reflux disease with esophagitis, without bleeding
CPT/HCPCS: 99214; G2211

== ENCOUNTER → 2024-06-18 13:48 | Outpatient (BNVA) | payer MEDICARE, MEDICAID, SELFPAY | PROVIDERS: PCP Internal Medicine; Visit Provider Nurse Practitioner Family | DX: K58.9 Irritable bowel syndrome, unspecified (principal); D12.6 Benign neoplasm of colon, unspecified; R14.0 Abdominal distension (gaseous); R10.13 Epigastric pain; K21.00 Gastro-esophageal reflux disease with esophagitis, without bleeding | CPT/HCPCS: 99212 ==

== ENCOUNTER 2024-07-22 13:51 | Outpatient (REF) | payer MEDICAID, SELFPAY ==
--- OUTSIDE RECORDS SUMMARY | 2024-07-22 15:53 | XMS_ITS | Encounter Summary ---
Author Organization [employer] Address [address] [place] [address] 7t [place] [address] Care Team Providers Care Hospital Laboratory Technician Name Role Phone Mathew Oleary MD Primary Care Provide r Reason for Visit * Reason Comments Med Refill Encounter Details Date Type Department Care Team ([facility] st Contact Info) Description 11/05/2022 Refill [facility] [address] [place], [place] [phone] Mathew Oleary MD [address] [place], [place] [phone] Social History Tobacco Use Types Packs/Day Years [...] Care Team (Late st Contact Info) Description 10/16/2024 2:00 PM EDT Office Visit [facility] [address] [facility] [place] [address] Mathew Oleary MD [address] [place] [phone] documented as of this encounter Goals Goal Patient Goal Type Associated Problems Recent Progress Patient-Stated? Author Blood Pressure < 140/90 Blood Pressure 138/82( 025 1:37 PM EDT) No Sarah Bhandari, PharmD documented as of this encounter Visit Diagnoses Not on filedocumented in this encounter Additional Health Concerns Assessment Noted Time PHQ-9 Depression Total Score: 0 03/14/19 23 11:51 AM EST documented as of this encounter Care Teams Hospital Laboratory Technician Relationship Specialty Start Date End Date Mathew Oleary MD [address] [place] [address] PCP - General Internal Medicine 11/14/13 documented as of this encounter
[2024-07-22 17:07] LABS: Alanine Aminotransferase 29 U/L (0-40); Alkaline Phosphatase 69 U/L (39-117); Anion Gap 12 (12-20); Aspartate Amino Transferase 26 U/L (5-37); Bilirubin Total 0.6 mg/dL (0.0-1.0); Blood Urea Nitrogen 18 mg/dL (9-16); Calcium 9.4 mg/dL (8.4-10.2); Carbon Dioxide 26 mmol/L (22-29); Chloride 110 mmol/L (96-108); Cholesterol 171 mg/dL (<200); Estimated Glomerular Filt Rate > 60; Glucose Random 102 mg/dL (60-115); HDL Cholesterol 40 mg/dL (>40); LDL Cholesterol Calculated 100 mg/dL (<100); Sodium 144 mmol/L (135-145); Total Protein 7.1 g/dL (6.5-8.0); Triglycerides 157 mg/dL (<150)
[2024-07-22 17:55] LABS: Prostate Specific Antigen Scr 2.93 ng/mL (<0.05-4.0)
== END 2024-07-22 13:52 | disposition home or self-care (01) ==
LOC: HO.HHCL 13:51
PROVIDERS: PCP Internal Medicine; Visit Provider Internal Medicine
DX: Z00.00 Encounter for general adult medical examination without abnormal findings (principal); I10 Essential (primary) hypertension
CPT/HCPCS: 36415; 80053; 80061; 84153

== ENCOUNTER 2024-10-16 14:18 | Outpatient (REF) | payer MEDICAID, SELFPAY ==
--- OUTSIDE RECORDS SUMMARY | 2017-03-12 13:00 | XMS_ITS | Continuity of Care Document ---
Author Organization [facility] Address [address] [place] [address] Phone Care Team Providers Care Polo Coach Name Role Phone FERNIE Henriquez DNP, Joseph [...] Diagnoses Date Provider Office/outpati ent visit,est, [facility] [address] [place], [place], [facility], tel:[phone] Cheko Silva back pain (chief complaint) Muscle spasmBody mass index (BMI) 29.0-29.9, adult Martinez Conte. [address] [place] [address], [address] [place] [address], . tel:[phone] [facility], [address] [place] [address], [facility], tel:[phone] [facility] No Information Obamiro Cecile. [address] [place] [address], [facility], . tel:[phone] [facility], [address] [place] [address], [facility], tel:[phone] [facility] Medical No Information Nursing Nursing. [address] [place], [place] [id number] [place] [address], [facility], . tel:[phone] [facility], [address] [place] [address], [facility], tel:[phone] [facility] Dyslipidemia (chief complaint) No Information Obamiro Cecile. [address] [place] [address], [facility], . tel:[phone] [facility], [address] [place] [address], [facility], tel:[phone] [facility] Medical diabetes (chief complaint) Flu Shot Obara Milly. [address] [place] [address], [id number] [place], [place], [address], [place]. tel:[phone] [facility], [address] [place] [address], [facility], tel:[phone] [facility] diabetes (chief complaint) No Information Obara Milly. 5 [facility], [id number] [place], [place], [address], [place]. tel:[phone] [facility], [address] [place] [address], [facility], tel:[phone] [facility] Old No Information Sadia Bindu. [address], [facility], . tel:[phone] [facility], [address] [place] [address], [facility], tel:[phone] [place] [facility] diabetes (chief complaint)hype rlipidemia (chief complaint) HIB Vaccination, Need For Aamir Alvarenga. [address] [place] [address], [address] [place] [address], [facility], . tel:[phone] [facility], [address] [place] [address], [facility], tel:[phone] [place] [facility] palpitations (chief complaint) PalpitationsDM II Uncontrolled (+v58.67 If Insulin) Aamir Alvarenga. [address] [place] [address], [address] [place] [address], [facility], . tel:[phone] [facility], [address] [place] [address], [facility], tel:[phone] [place] [facility] PALPITATIONS (chief complaint) Palpitations Jairo Iglesias. [address] [id number] [place] [address], [facility], . [facility], [address] [place] [address], [facility], tel:[phone] [facility] Medical diabetes (chief complaint) No Information Randell Atkins. [address] [place] [address], [id number] [address] [place] [address], [facility], . tel:[phone] [facility], [address] [place] [address], [facility], tel:[phone] [facility] Medical diabetes (chief complaint) DM II Controlled (+v58.67 If Insulin) Randell Atkins. 5 [facility], [id number], [place], [place], [facility], [place]. tel:[phone] [facility], [address] [place] [address], [facility], tel:[phone] [facility] Medical arthralgias (chief complaint) ARTHROPATHY NEC-L/LEG Jairo Iglesias. 70 [facility], [address] [place] [address], [facility], . [facility], [address] [place] [address], [facility], tel:[phone] [facility] Medical QUESTION COLONOSCOPY (chief complaint) No Information Jairo Iglesias. 70 [facility], [address] [place] [address], [place], [place], [facility], [place]. [facility], [address] [place] [address], [facility], tel:[phone] [facility] LAB RESULTS (chief complaint) COLONOSCOPY Jairo Iglesias. 70 [facility], [id number] 00CC, [place], [place], [facility], [place]. [facility], [address] [place] [address], [facility], tel:[phone] [facility] cold symptoms (chief complaint) Bronchitis, Acute Jairo Iglesias. 70 [facility], [id number], [place], [place], [facility], . [facility], [address] [place] [address], [facility], tel:[phone] [facility] No Information Sadia Ruano. 70 [facility], [id number] [address], [place], [facility], . tel:[phone] [facility], [address] [place] [address], [facility], tel:[phone] [place] [facility] diabetes (chief complaint) DM II Controlled (+v58.67 If Insulin) Obeliana Atkins. 715 [facility], [id number] [facility], [place], [place], [facility], . tel:[phone] [facility], [address] [place] [address], [facility], tel:[phone] [facility] WNATS LIFE ALERT,ELECBED (chief complaint) DM II Uncontrolled (+v58.67 If Insulin) Jairo Iglesias. 70 [facility], [id number] 00, [place], [place], [facility], . [facility], [address] [place] [address], [facility], tel:[phone] [facility] for review of labs (chief complaint) DM II Controlled (+v58.67 If Insulin) Sienna dolan [address] [facility], [id number] 00CC, [place], [place], [facility], . tel:[phone] [facility], [address] [place] [address], [facility], tel:[phone] [facility] dizziness (chief complaint) Dizziness/Giddin ess/VertigoDM II Controlled (+v58.67 If Insulin) Sienna Marcel dolan [address] [facility], [id number] 00CC, [place], [place], [facility], . tel:[phone] [facility], [address] [place] [address], [facility], tel:[phone] [facility] dizzzy when sleeping (chief complaint) Dizziness/Giddin ess/VertigoDM II Controlled (+v58.67 If Insulin) Sienna dolan [address] [facility], [id number] 00CC, [place], [place], [facility], . tel:[phone] [facility], [address] [place] [address], [facility], tel:[phone] [email or web address] podiatry (chief complaint)diab etes (chief complaint)Toen ail trimmings (chief complaint) Tinea Pedis, Athletes Foot, Foot Ringworm Greg Preston. [address] [place] [address], [id number] 00CC, [place], [place], [id number], . tel:[phone] [facility], [address] [place] [address], [facility], tel:[phone] [facility] toe on right foot numb at night (chief complaint)toes nails trimming (chief complaint) Pain In Limb Greg Preston. [address] [place] [address], [id number] [address] [place] [address], [id number], . tel:[phone] [facility], [address] [place] [address], [facility], tel:[phone] [facility] Medical ROUTINE DM PT (chief complaint) FLAT FOOT Greg Preston. [address] [place] [address], [id number] [place], [place], [id number], . tel:[phone] [facility], [address] [place] [address], [facility], tel:[phone] [facility] Pain In Limb Greg Preston. [address] [place] [address], [id number] [address] [place] [address], [id number], . tel:[phone] Family History Family Member Type Diagnosis Age [...] Record Payers Payer name Insurance type Covered alliance party ID Authoriza tion(s) Medicare NGS MB [id number] [facility] [id number] Social History Type Description Quantity Date Captured [...] ordered Referral Referred To: Mohan Garza DPM [address] [place] [address] [id number], [phone] Ordered: Referral: Mohan Garza DPM. Podiatry. Evaluate and treat. ordered Referral Ordered: Gastroenterology. ordered Referral Referred To: Quincy Lira MD [address] [place] [address], [phone] Ordered: Referral: Quincy Lira MD. Gastroentergy. Evaluate and treat. ordered Future Order: Lab Order CMP ([id number]), O rdered on: Ordered Future Order: Lab Order Hemoglob in A1c ([id number]), Ordered on: Ordered Future Order: Lab Order Lipid Pa kyler ([id number]), Ordered on: Ordered Future Order: Lab Order Microalb /Creat Ratio, Randm Ur ([id number]), Ordered on: Ordered Future Order: Lab Order Microalb /Creat Ratio, Randm Ur ([id number]), Sent on: Sent Future Order: Lab Order Prostate -Specific Ag, Serum ([id number]), Sent on: Sent Future Order: Lab Order Hemoglob in A1c ([id number]), Sent on: Sent Future Order: Lab Order Hepatic Function Panel (7) ([id number]), Ordered on: Ordered Future Order: Lab Order Comp. Me tabolic Panel (14) ([id number]), Ordered on: Ordered Future Order: Lab Order Lipid Pa kyler ([id number]), Ordered on: Ordered Future Order: Lab Order Free Thy roxine + T4 ([id number]), Ordered on: Ordered Future Order: Lab Order Prostate -Specific Ag, Serum ([id number]), Ordered on: Ordered Future Order: Lab Order CBC With Differential/Platelet ([id number]), Appointment on: Ordered Future Order: Lab Order TSH ([id number]), Ord ered on: Ordered Future Order: Lab Order Hemoglob in A1c ([id number]), Ordered on: Ordered Future Order: Lab Order Lipid Pa kyler ([id number]), Ordered on: Ordered Future Order: Lab Order CMP ([id number]), O rdered on: Ordered Future Order: Lab Order Hemoglob in A1c ([id number]), Ordered on: Ordered Future Order: Lab Order UA w/lakhwinder ro ([id number]), Ordered on: Ordered History Of Present Illness [...] Related to Muscle spasm Activity as tolerated OTC medication Activity as tolerated Warm compresses Protective activity Take new medication as prescribe d Activity as tolerated Activity as tolerated Reviewed medications Take new medication as prescribe d Adequate nutritional intake Follow exercise program Increase activity level Change medication Reviewed medications Patient understood and made info rmed decision Take new medication as prescribe d Practice good hygiene Increase rest Patient understood and made info rmed decision Reviewed medications Take new medication as prescribe d Practice good hygiene Protective activity Assessments Type Assessment Date assessment Muscle spasm assessment Body mass index (BMI) 29.0-29.9, adult Mental Status Date Cognitive Assessment Orientation - [place] ed to time, place, person, situation.
--- NOTE | ~2024-10-16 | XR_ITS ---
EXAMINATION: XR ELBOW 3 VIEWS RIGHT HISTORY: right elbow pain COMPARISON: There are no prior studies available for comparison. FINDINGS: Four views of the right elbow are submitted. Osseous mineralization is normal. There is no fracture or dislocation. The joint spaces are preserved. The soft tissues are unremarkable. There is no joint effusion. XR/XR elbow RT min 3V IMPRESSION: Unremarkable examination of the right elbow. Electronically signed by: Atilio Mead MD 10/16/2024 03:16 PM EDT
--- OUTSIDE RECORDS SUMMARY | 2024-10-16 14:00 | XMS_ITS | Encounter Summary ---
Author Organization [employer] Address [address] [place] [address] [address] [address] Care Team Providers Care Community Service Director Name Role Phone Mathew Oleary MD Primary Care Provide r Reason for Referral * Consultation (Routine) - Authorized Specialty Diagnoses / Procedures Referred By Sasha t Referred To Contact Orthopaedic Surgery Diagnoses Right lateral epicondylitis Mathew Oleary MD [address] [place] [address] Phone: tel: fax: [facility] Orthopedics [address] [place] [address] Phone: tel: Referral ID Status Reason Start Date Expiration Date Visits Requested Visits Authorized [id number] Authorized Specialty Services Required 10/16/2024 10/16/2025 1 1 * Consultation (Routine) - Authorized Specialty Diagnoses / Procedures Referred By Contac t Referred To Contact General Surgery Diagnoses Left inguinal hernia Mathew Oleary MD [address] [place] [address] Phone: tel: fax: Nayan Geiger MD [address] [place] [address] Phone: tel: fax: Referral ID Status Reason Start Date Expiration Date Visits Requested Visits Authorized [id number] Authorized Specialty Services Required 10/16/2024 10/16/2025 1 1 Reason for Visit * Reason Comments Follow-up Encounter Details Date Type Department Care Team (Jovanni st Contact Info) Description 10/16/2024 2:00 PM EDT Office Visit [facility] [address] [place] [address] Mathew Oleary MD [address] [place] [address] Essential hypertension (Primary Dx); Left inguinal hernia; [...] the elbow approximately 10-15years ago by an human resources services specialist Hypertension This is a chronic problem. [...] repair on 02/14/[address] Geiger at [facility] Patient with c/o recurrent left inguinal pain [...] 3+ Views Right Referral to Orthopaedic Surgery [facility] health care PSA 07/22/2024: 2.93. [...] repair on 02/14/[address] Geiger at [facility] Patient with c/o recurrent left inguinal pain [...] Author Blood Pressure < 140/90 Blood Pressure 134/84( 025 1:44 PM EDT) No Sarah Bhandari, LuisD documented [...] PM EDT Narrative 10/16/2024 3:19 [place] [address] XRay Report Signed Patient: Edgar Kruse MR#: [id number] : 1940 Acct:[id number] Age/Sex: 83 / M ADM Date: 10/16/24 Loc: HO.HHCX Attending Dr: Mathew Quarles MD Ordering Physician: Mathew Quarles MD Date of Service: 10/16/24 Procedure(s): XR elbow RT min 3V Accession Number(s): [id number] cc: Mathew Quarles MD Reason for Exam: [...] 10/16/24 1516 DD/ 1506 TD/TT: 10/16/24 1507 Harnessmaker Apprentice: Procedure Note Donotbubbainterpreter, Image - 10/16/[address] [address] XRay Report Signed Patient: Triny Kruse#: [id number] : 1940cct:[id number] Age/Sex: 83 / MADM Date: 10/16/24 Loc: HO.HHCX Attending Dr: Mathew Quarles MD Ordering Physician: Mathew Quarles MD Date of Service: 10/16/24 Procedure(s): XR elbow RT min 3V Accession Number(s): [id number] cc: Mathew Quarles MD Reason for Exam: [...] 10/16/24 1516 DD/ 1506 TD/TT: 10/16/24 1507 Harnessmaker Apprentice: us Mathew Lynch MD IMG XR PROCEDURES [...] documented as of this encounter Care Teams Community Service Director Relationship Specialty Start Date End Date Mathew Oleary MD [address] [place] [address] PCP - General Internal Medicine 11/14/13 documented as of this encounter
--- OUTSIDE RECORDS SUMMARY | 2024-10-16 18:04 | XMS_ITS | Encounter Summary ---
Author Organization [employer] Address [address] [place] [address] Care Team Providers Care Agricultural Technician Name Role Phone Mathew Oleary MD Primary Care Provide r Encounter Details Date Type Department Care Team ([facility] st Contact Info) Description 10/15/2024 Telephone [facility] [address] [place], [place] [id number] Ayleen Aiken MA Social History Tobacco Use Types Packs/Day Years [...] AM EDT documented as of this encounter Miscellaneous Notes * Telephone Encounter - Ayleen Aiken MA - 10/15/2024 11:51 AM EDT Chart Prep Labs: done Images: not applicable Referrals: not applicable Vaccines due: Covid, Flu, Tdap, and RSV Screenings: not applicable Overdue care gaps: PHQ-9 documented in this encounter Plan of Treatment Not on file documented as of this encounter Goals Goal Patient Goal Type Associated Problems Recent Progress Patient-Stated? Author Blood Pressure < 140/90 Blood Pressure 134/84( 025 1:44 PM EDT) No Sarah Bhandari, PharmD documented as of this encounter Visit Diagnoses Not on filedocumented in this encounter Additional Health Concerns Assessment Noted Time PHQ-9 Depression Total Score: 0 09/11/19 24 1:17 PM EDT documented as of this encounter Care Teams Agricultural Technician Relationship Specialty Start Date End Date Mathew Oleary MD [address] [place] [address] [place] [address] PCP - General Internal Medicine 11/14/13 documented as of this encounter
--- OUTSIDE RECORDS SUMMARY | 2024-10-16 18:04 | XMS_ITS | Encounter Summary ---
Author Organization [employer] Address [address] [place] [address] Care Team Providers Care Youth Specialist Name Role Phone Mathew Oleary MD Primary Care Provide r Encounter Details Date Type Department Care Team (Latest Contact Info) Description 10/16/2024 Travel Social History Tobacco Use Types Packs/Day Years [...] AM EDT documented as of this encounter Functional Status * Over the [...] Ko MA documented as of this encounter Plan of Treatment Not on [...] Time PHQ-9 Depression Total Score: 0 10/17/19 25 1:54 PM EDT documented as of this encounter Care Teams Youth Specialist Relationship Specialty Start Date End Date Mathew Oleary MD [address] [place] [address] PCP - General Internal Medicine 11/14/13 documented as of this encounter
--- OUTSIDE RECORDS SUMMARY | 2024-10-16 18:04 | XMS_ITS | Clinical Summary ---
Author Organization [email or web address] Address [address] [facility] [address] [place] [address] Care Team Providers Care Glass Lathe Operator Name Role Phone Mathew Oleary MD Primary Care Provide r Allergies No known active allergies Medications oxyCODONE-aceta minophen (Percocet) 5-325 MG tablet Take 1 tablet [...] mouth at bedtime. 01/10/20 23 Active Creon 14336-30797 units capsule TAKE 1 CAPSULE BY MOUTH FOUR TIMES A DAY WITH MEALS AND SNACKS 01/25/20 23 Active pantoprazole (ProtoNix) 40 MG EC tablet Take 40 mg by mouth in the morning. 02/01/20 23 Active lisinopril 40 MG tabletIndicatio ns:Essential hypertension Take 1 tablet (40 mg) by mouth Once per day. 90 tablet 3 09/11/19 24 Active acetaminophen (Tylenol Extra Strength) 500 MG tablet Take 1 tablet (500 mg) by mouth every 6 (six) hours if needed for mild pain. 60 tablet 03/27/19 25 Active Aspirin Low Dose 81 MG EC tabletIndicatio ns:Essential hypertension TAKE 1 TABLET (81 MG) BY MOUTH IN THE MORNING 90 tablet 1 08/13/19 25 Active fluticasone (Flonase) 50 MCG/ACT nasal sprayIndication s:Viral upper respiratory tract infection ADMINISTER 1 SPRAY INTO EACH NOSTRIL ONCE PER DAY. SHAKE GENTLY. BEFORE FIRST USE, PRIME PUMP. 48 mL 08/19/19 25 Active metoprolol succinate XL (Toprol XL) 25 MG 24 hr tabletIndicatio ns:Essential hypertension Take 1 tablet (25 mg) by mouth Once per day. 90 tablet 3 10/17/19 25 026 Active metoprolol succinate XL (Toprol-XL) 100 MG 24 hr tabletIndicatio ns:Essential hypertension Take 1 tablet (100 mg) by mouth Once per day. 90 tablet 3 10/17/19 25 026 Active ibuprofen 600 MG tabletIndicatio ns:Pain Take 1 tablet (600 mg) by mouth every 8 (eight) hours if needed for mild pain. 60 tablet 1 10/17/19 25 Active metoprolol succinate XL (Toprol XL) 25 MG 24 hr tablet Take 1 tablet (25 mg) by mouth in the morning. 90 tablet 3 03/05/19 24 025 Discontinued(R eorder (will not trigger notification to Pharmacy)) metoprolol succinate XL (Toprol-XL) 100 MG 24 hr tablet Take 1 tablet (100 mg) by mouth in the morning. 90 tablet 3 03/05/19 24 025 Discontinued(R eorder (will not trigger notification to Pharmacy)) ibuprofen 600 MG tablet Take 600 mg by mouth every 8 (eight) hours if needed for mild pain. 025 Discontinued Active Problems Problem Noted Date Diagnosed Date Right lateral epicondylitis 10/16/2024 Assessment & Plan (10/16/2024 2:16 PM EDT): - Right lateral epicondylitis with persistent irritation. - Ordered radiograph of right elbow. Referred to orthopedics for evaluation and possible corticosteroid injection. IBS (irritable bowel syndrome) 03/27/2024 Assessment & [...] Preventative health care 09/11/2023 Assessment & Plan (10/16/2024 1:54 PM EDT): PSA 07/22/2024: 2.93. He has a Hx [...] Td: 04/05/2012 Zoster: 05/14/2014 Assessment & Plan (07/22/2024 1:09 PM EDT): PSA 10/30/2017 2.23, he has [...] Td: 04/05/2012 Zoster: 05/14/2014 Assessment & Plan (03/27/2024 1:59 PM EST): [...] for a follow up seen at our [facility] 09/08/2021 s/p syncopal episode, Etiology ? Pt's [...] me that when he was living in [place] he tested positive for Syphilis and was treated. Back then he remembers the [facility] was involved. We contacted the [facility] and they were going to try and [...] Left inguinal hernia 12/23/2021 Assessment & Plan (10/16/2024 2:07 PM EDT): S/p repair on 02/14/[address] Geiger at [facility] Patient with c/o recurrent left inguinal pain after doing exercise On exam the left inguinal area is protuberant Plan: Refer back to Dr. Geiger Assessment & Plan (03/12/2022 5:23 PM EST): S/p repair on 02/14/[address] Geiger at [facility] Complex renal cyst 12/23/2021 Assessment & Plan [...] I referred him to a Urologist Dr Amanda BANUELOS, repeat renal US to check stability of [...] I referred him to a Urologist Dr Amanda BANUELOS, repeat renal US to check stability of cyst This was done on 12/23/2013 and showed stability Pt was last seen 02/19/2018 Essential hypertension 12/15/2014 Overview (10/16/2024): Assessment & Plan (10/16/2024 1:53 PM EDT): Pt here for a f/u [...] loss. f/u 4 months Assessment & Plan (07/22/2024 1:06 PM EDT): Pt here for a f/u [...] 08/09/2021 were within normal limits. Will repeat BMP Plan: Continue current regimen. patient advised to adhere to a low sodium diet, encouraged about medication compliance, counseled about weight loss. f/u 4 months Assessment & Plan (03/27/2024 2:00 PM EST): [...] future f/u with PCP - Graduated from [facility] program Monitoring: Potassium (mmol/L) Date Value 03/09/2023 [...] Hospitalization and he was sent home on [facility] Pt evaluated by Hematology, last seen 11/21/2022 [...] Encounters Date Type Department Care Team Description 10/16/2024 2:00 PM EDT Office Visit [facility] MEDICINE [address] [place] [address] Mathew Oleary MD Essential hypertension (Primary Dx); Left inguinal hernia; Right lateral epicondylitis; Preventative health care; Pain 10/16/2024 Travel 10/15/2024 Telephone [facility] [address] [place] [address] Ayleen Aiken [place] 08/18/2024 Telephone [facility] MEDICINE [address] [place] [address] Mathew Oleary MD Referral 08/17/2024 Refill [facility] [address] [place] [address] Mathew Oleary MD Viral upper respiratory tract infection 08/10/2024 Refill [facility] MED[facility] [address] [place] [address] Josiah Ramon MD Essential hypertension 07/23/2024 Refill [facility] [address] [place] [address] Mathew Oleary MD Essential hypertension 07/22/2024 1:15 PM EDT Office Visit [facility] MED[facility]INE [address] [place] [address] Mathew Oleary MD Essential hypertension (Primary Dx); Preventative health care 07/22/2024 Travel 07/21/2024 Telephone [facility] [address] [facility] [place] [place] [address] Mathew Oleary MD chartprep from Last 3 Months Immunizations Immunization Administration [...] 20 10/16/2024 1:44 PM EDT Oxygen Saturation 97% 07/22/2024 1:14 PM EDT Inhaled Oxygen Concentration - - Weight 104 kg (230 lb) 10/16/2024 1:44 PM EDT Height 188 cm (6' 2 ) 10/16/2024 1:44 PM EDT Body Mass Index 29.53 10/16/2024 1:44 PM EDT Plan of Treatment Health Maintenance Due Date Last Done Comments CT Colonography 1940 FIT DNA/Cologuard 1940 FIT 1942 FOBT 1940 Sigmoidoscopy 1940 RSV Patients and Patients Aged 60 years or older (1 - 1-dose 75+ series) 2017 DTaP/Tdap/Td Vaccines (1 - Tdap) 09/12/2023 09/11/2023, 04/05/2012, 03/27/2001 COVID-19 Vaccine (3 - season) 2024 06/10/2020, 05/13/2020 Influenza Vaccine (#1) 2024 , 12/06/2021, 11/06/2019, Additional history exists SDOH Screening 03/11/2025 03/11/2024 Alcohol/Substance Use Screening 03/27/2025 03/27/2024 Tobacco Screening 07/22/2025 07/22/2024 Depression Screening 10/16/2025 10/16/2024, 10/17/19 25 Colonoscopy 06/19/2029 Colorectal Cancer Screening 06/19/2029 Lipid Panel 07/22/2029 07/22/2024, 03/2023, 02/24/2020 Pneumococcal Vaccine: 50+ Years Completed 08/10/2016, 12/15/2014, 09/19/2007 Zoster Vaccines Completed 08/10/2022, 08/2021, 05/14/2014 HIB Vaccines Aged Out No longer eligi [...] patient's age to complete this topic Meningococcal B Vaccine Aged Out No l onger eligible based on patient's age to complete [...] Pressure 134/84( 025 1:44 PM EDT) No Bhandari, Jerril, PharmD Procedures Procedure Name Priority Date/Time Associated Diagnosis Comments XR ELBOW 3+ VIEWS RIGHT Routine 10/16/2024 3:06 PM EDT Right lateral epicondylitis COMPREHENSIVE METABOLIC PANEL Routine 07/22/2024 2:03 PM EDT Essential hypertension LIPID PANEL, STANDARD Routine 07/22/2024 2:03 PM EDT Essential hypertension PSA, SCREEN Routine 07/22/2024 2:03 PM EDT Preventative health care from Last 3 Months Results * XR Elbow 3+ Views Right (10/16/2024 3:06 PM EDT) Anatomical Region Laterality Modality Upper Extremities, Elbow Right Radiogr aphic Imaging 10/16/2024 3:06 PM EDT Narrative 10/16/2024 3:19 [place] [address] XRay Report Signed Patient: Edgar Kruse MR#: [id number] : 1940 Acct:[id number] Age/Sex: 83 / M ADM Date: 10/16/24 Loc: HO.HHCX Attending Dr: Mathew Quarles MD Ordering Physician: Mathew Quarles MD Date of Service: 10/16/24 Procedure(s): XR elbow RT min 3V Accession Number(s): [id number] cc: Mathew Quarles MD Reason for Exam: [...] by Atilio Mead MD in OV> 10/16/24 151 DD/ 1506 TD/TT: 10/16/24 150 Strike Planning Applications: Procedure Note [employer], Image - 10/16/[address] [address] XRay Report Signed Patient: Triny Kruse#: [id number] : 1940cct:[id number] Age/Sex: 83 / MADM Date: 10/16/24 Loc: HO.HHCX Attending Dr: Mathew Quarles MD Ordering Physician: Mathew Quarles MD Date of Service: 10/16/24 Procedure(s): XR elbow RT min 3V Accession Number(s): [id number] cc: Mathew Quarles MD Reason for Exam: [...] OV> 10/16/24 1516 DD/ 1506 TD/TT: 10/16/24 150 Strike Planning Applications: us Mathew Lynch MD IMG XR PROCEDURES Fin al Result * PSA, Screen (07/22/2024 2:03 PM EDT) PSA, Total 2.93 <0.05 - 4.0 ng/mL [facility] Comment:PSA methodology: Abb samantha Alismitha i ChemiluminescentMicroparticle Immunoassay (CMIA) Blood Venous blood specimen / Unknown 07/22/2024 2:03 PM EDT 07/22/2024 4:08 PM EDT Mathew Lynch MD LAB BLOOD ORDERABLES Final Result Performing Organization Address City/[facility] Co de Phone Number [facility] [address] [place] [phone] * (ABNORMAL) Lipid Panel, Standard (07/22/2024 2:03 PM EDT) Triglycerides 157(H) <150 mg/dL [facility] Comment:Desirable Triglyceri de: less than 150 mg/dLBorderline High Triglyceride 150-199 mg/dLHigh Triglyceride: 200-499 mg/dLVery High Triglyceride: greater than or equal to 5OO mg/dL Cholesterol 171 <200 mg/dL [facility] Comment:Desirable Cholestero l: less than 200 mg/dLBorderline High Cholesterol: 200-239 mg/dLHigh Cholesterol: greater than 239 mg/dL LDL Cholesterol Calculated 100(H) <100 mg/dL [facility] Comment:Desirable LDL: less than 100 mg/dLNear Optimal/Above Optimal LDL: 110- 129 mg/dLBorderline High LDL: 130-159 mg/dLHigh LDL: 160-189 mg/dLVery High LDL: greater than or equal to 190 mg/dL HDL Cholesterol 40(L) >40 mg/dL [facility] Comment:Desirable HDL: great er than 40 mg/dL Note: This HDL assay may give artificially low results in patients with liver disease. Blood Venous blood specimen / Unknown 07/22/2024 2:03 PM EDT 07/22/2024 4:08 PM EDT Mathew Lynch MD LAB BLOOD ORDERABLES Final Result Performing Organization Address City/[facility]/ZIP Co de Phone Number [facility] [address] [place] [phone] * (ABNORMAL) Comprehensive Metabolic Panel (07/22/2024 2:03 PM EDT) Sodium 144 135 - 145 mmol/L [facility] Potassium 4.0 3.3 - 5.1 mmol/L [facility] Chloride 110(H) 96 - 108 mmol/L [facility] Carbon Dioxide 26 22 - 29 mmol/L [facility] Anion Gap 12 12 - 20 [facility] Urea Nitrogen (BUN) 18(H) 9 - 16 mg/dL [facility] Creatinine, Serum 0.87 0.5 - 1.4 mg/dL [facility] Estimated Glomerular Filt Rate >60 [facility] Comment:Chronic Kidney Disea se: Estimated GFR < 60 mL/min/[id number] Kidney Disease: Estimated GFR < 15 mL/min/1.73m2 Glucose 102 60 - 115 mg/dL [facility] Calcium 9.4 8.4 - 10.2 mg/dL [facility] Bilirubin, Total 0.6 0.0 - 1.0 mg/dL [facility] Aspartate Amino Transferase 26 5 - 37 U/L [facility] Alanine Aminotransferase 29 0 - 40 U/L [facility] Total Protein 7.1 6.5 - 8.0 g/dL [facility] Albumin Level 4.0 3.5 - 5.0 g/dL [facility] Alkaline Phosphatase 69 39 - 117 U/L [facility] Blood Venous blood specimen / Unknown 07/22/2024 2:03 PM EDT 07/22/2024 4:08 PM EDT us Mathew Lynch MD LAB BLOOD ORDERABLES Final Result [facility] [address] [place] [phone] from Last 3 Months Insurance [facility] ST[facility] Care Teams Glass Lathe Operator Relationship Specialty Start Date End Date Mathew Oleary MD [address] [place] [address] [place] [address] PCP - General Internal Medicine 11/14/13
--- OUTSIDE RECORDS SUMMARY | 2024-10-16 18:04 | XMS_ITS | Encounter Summary ---
Author Organization [employer] Address [address] [facility] 7t [place] [address] Care Team Providers Care Fastener Technologist Name Role Phone Mathew Oleary MD Primary Care Provide r Reason for Visit * Reason Comments Med Refill Encounter Details Date Type Department Care Team ([facility] st Contact Info) Description 04/02/2024 Refill [facility] MED[facility]INE [address] [place], [place] [phone] Mathew Oleary MD [address] [place], [place] [phone] Pain Social History Tobacco Use Types Packs/Day [...] documented as of this encounter Care Teams Fastener Technologist Relationship Specialty Start Date End Date aMthew Oleary MD [address] [place] [address] PCP - General Internal Medicine 11/14/13 documented as of this encounter
--- OUTSIDE RECORDS SUMMARY | 2024-10-16 18:04 | XMS_ITS | Encounter Summary ---
Author Organization [employer] Address [address] [facility] 7t [place] [address] Care Team Providers Care Automotive Technology Instructor Name Role Phone Mathew Oleary MD Primary Care Provide r Reason for Visit * Reason Comments Med Refill Encounter Details Date Type Department Care Team ([facility] st Contact Info) Description 07/23/2024 Refill [facility] MEDICINE [address] [place], [place] [phone] Mathew Oleary MD [address] [place], [place] [phone] Essential hypertension Social History Tobacco Use Types Packs/Day Years [...] as of this encounter Visit Diagnoses Diagnosis Essential hypertension Unspecified essential hypertension documented in this encounter Additional Health Concerns Assessment Noted Time PHQ-9 Depression Total Score: 0 09/11/19 24 1:17 PM EDT documented as of this encounter Care Teams Automotive Technology Instructor Relationship Specialty Start Date End Date Mathew Oleary MD [address] [place] [phone] PCP - General Internal Medicine 11/14/13 documented as of this encounter
--- OUTSIDE RECORDS SUMMARY | 2024-10-16 18:04 | XMS_ITS | Encounter Summary ---
Author Organization [employer] Address [address] [place] [address] [address]t [place] [address] Care Team Providers Care Bowling Ball Marker Name Role Phone Mathew Oleary MD Primary Care Provide r Reason for Visit * Reason Comments Med Refill Encounter Details Date Type Department Care Team ([facility] st Contact Info) Description 11/05/2022 Refill [facility] MEDICINE [address] [place], [place] [phone] Mathew Oleary MD [address] [place], [place] [phone] Social History Tobacco Use Types Packs/Day Years [...] 025 1:44 PM EDT) No Sarah Bhandari, Jil documented as of this encounter Visit Diagnoses Not on filedocumented in this encounter Additional Health Concerns Assessment Noted Time PHQ-9 Depression Total Score: 0 03/14/19 23 11:51 AM EST documented as of this encounter Care Teams Bowling Ball Marker Relationship Specialty Start Date End Date Mathew Oleary MD [address] [place] [phone] PCP - General Internal Medicine 11/14/13 documented as of this encounter
== END 2024-10-16 14:19 | disposition home or self-care (01) ==
LOC: HO.HHCX 14:18
PROVIDERS: PCP Internal Medicine; Visit Provider Internal Medicine
DX: M77.11 Lateral epicondylitis, right elbow (principal)
CPT/HCPCS: 73080

== ENCOUNTER → 2024-10-16 14:23 | Outpatient (BNV) | payer MEDICAID, SELFPAY | PROVIDERS: PCP Internal Medicine; Visit Provider Radiology Diagnostic Radiology | DX: M25.521 Pain in right elbow (principal) | CPT/HCPCS: 73080 ==

== ENCOUNTER 2024-10-20 12:19 | Inpatient (IN) | payer MEDICARE, MEDICAID, SELFPAY ==
--- OUTSIDE RECORDS SUMMARY | 2017-03-12 13:00 | XMS_ITS | Continuity of Care Document ---
Author Organization [facility] Address [address] [place] [address] Phone Care Team Providers Care Cabinetmaker Helper Name Role Phone FERNIE Henriquez DNP, Joseph Unavailable Tari vailable Allergies, Adverse Reactions, Alerts Substance Reaction Status Criticality No Known Allergies Active No Inform ation Medications Medication Instructions Dosage Effective Dates (start - stop) Status Comments Aspercreme (lidocaine) 4 % topical apply to affected area up to 3 times per day as needed - Active ibuprofen 600 mg tablet take 1 tablet by oral route 3 times every day with food as needed 600 MG - Active glipizide 5 mg Tab take 1 tablet (5MG) by oral route every day before meals 5 MG - Active pt needs appmt. metformin 500 mg tablet take 1 tablet (500MG) by oral route 2 times every day with morning and evening meals 500 MG - Active pt need labs. lovastatin 10 mg tablet take 1 tablet (10MG) by oral route every day with the evening meal 10 MG - Active Discontinue crestor; not covered by insurance. aspirin 325 mg Tab take 1 tablet (325MG) by oral route every day 325 MG - Active Lexapro 10 mg tablet take 1 tablet (10MG) by oral route every day 10 MG - Active Ambien 10 mg tablet take 1 tablet (10MG) by oral route every day at bedtime 10 MG - Active Procedures Procedure Date Office/outpatient visit,est, mod 2017 Advance Directives Directive Yes / No Effective Date File Name No Information Encounters Encounter Description Practice Location Reason(s) For Visit Diagnoses Date Provider Office/outpati ent visit,est, [facility] [address] [place], [place], [facility], tel:[phone] Cheko Silva back pain (chief complaint) Muscle spasmBody mass index (BMI) 29.0-29.9, adult Martinez Conte. [address] [place] [address], [address] [place] [address], . tel:[phone] [facility], [address] [place] [address], [facility], tel:[phone] [facility] No Information Obamiro Cecile. [address] [place] [address], [facility], . 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 [address] [place], [place] [address] [place] [address], [facility], . tel:[phone] [facility], [address] [place] [address], [facility], tel:[phone] [facility] Dyslipidemia (chief complaint) No Information Obamiro Cecile. [address] [place] [address], [facility], . tel:[phone] [facility], [address] [place] [address], [facility], tel:[phone] [facility] diabetes (chief complaint) Flu Shot Obara Milly. [address] [place] [address], [id number] [place], [address], [place]. tel:[phone] [facility], [address] [place] [address], [facility], tel:[phone] [facility] diabetes (chief complaint) No Information Obara Milly. 5 [facility], [id number] [place], [address], [place]. tel:[phone] [facility], [address] [place] [address], [facility], tel:[phone] [facility] Old No Information Sadia Bindu. [address], [facility], . tel:[phone] [facility], [address] [place] [address], [facility], tel:[phone] [place] [facility] diabetes (chief complaint)hype rlipidemia (chief complaint) HIB Vaccination, Need For Aamir Alvarenga. [address] [place] [address], [address] [place] [address], [facility], . tel:[phone] [facility], [address] [place] [address], [facility], tel:[phone] [facility] palpitations (chief complaint) PalpitationsDM II Uncontrolled (+v58.67 If Insulin) Aamir Alvarenga. [address] [place] [address], [address] [place] [address], [facility], . tel:[phone] [facility], [address] [place] [address], [facility], tel:[phone] [facility] [place] PALPITATIONS (chief complaint) Palpitations Jairo Iglesias. [address] [id number] [place] [address], [facility], . [facility], [address] [place] [address], [facility], tel:[phone] [facility] diabetes (chief complaint) No Information Randell Atkins. [address] [place] [address], [id number] [address] [place] [address], [facility], . tel:[phone] [facility], [address] [place] [address], [facility], tel:[phone] [facility] diabetes (chief complaint) DM II Controlled (+v58.67 If Insulin) Randell Atkins. 5 [facility], [id number] 00, [place], [place], [facility], [place]. tel:[phone] [facility], [address] [place] [address], [facility], tel:[phone] [facility] arthralgias (chief complaint) ARTHROPATHY NEC-L/LEG Jairo Iglesias. 70 [facility], [address] [place] [address], [facility], . [facility], [address] [place] [address], [facility], tel:[phone] [facility] Medical QUESTION COLONOSCOPY (chief complaint) No Information Jairo Iglesias. 70 [facility], [address] [place] [address], [place], [place], [facility], [place]. [facility], [address] [place] [address], [facility], tel:[phone] [facility] LAB RESULTS (chief complaint) COLONOSCOPY Jairo Iglesias. 70 [facility], [id number] 00CC, [place], [place], [facility], [place]. [facility], [address] [place] [address], [facility], tel:[phone] [facility] cold symptoms (chief complaint) Bronchitis, Acute Jairo Iglesias. 70 [facility], [id number] 00, [place], [facility], . [facility], [address] [place] [address], [facility], tel:[phone] [facility] No Information Sadia Ruano. 70 [facility], [id number] 00[place], [place], [facility], . tel:[phone] [facility], [address] [place] [address], [facility], tel:[phone] [facility] [place] [facility] diabetes (chief complaint) DM II Controlled (+v58.67 If Insulin) Obeliana Atkins. 715 [facility], [id number] [facility], [place], [facility], . tel:[phone] [facility], [address] [place] [address], [facility], tel:[phone] [facility] WNATS LIFE ALERT,ELECBED (chief complaint) DM II Uncontrolled (+v58.67 If Insulin) Jairo Iglesias. 70 [facility], [id number] 00, [place], [facility], . [facility], [address] [place] [address], [facility], tel:[phone] [facility] for review of labs (chief complaint) DM II Controlled (+v58.67 If Insulin) Sienna dolan [address] [facility], [id number] 00CC, [place], [place], [facility], . tel:[phone] [facility], [address] [place] [address], [facility], tel:[phone] [facility] dizziness (chief complaint) Dizziness/Giddin ess/VertigoDM II Controlled (+v58.67 If Insulin) Sienna Marcel dolan [address] [facility], [id number] 00CC, [place], [place], [facility], . tel:[phone] [facility], [address] [place] [address], [facility], tel:[phone] Zafar [facility] dizzzy when sleeping (chief complaint) Dizziness/Giddin ess/VertigoDM II Controlled (+v58.67 If Insulin) Sienna dolan [address] [facility], [id number] 00CC, [place], [facility], . tel:[phone] [facility], [address] [place] [address], [facility], tel:[phone] [facility] podiatry (chief complaint)diab etes (chief complaint)Toen ail trimmings (chief complaint) Tinea Pedis, Athletes Foot, Foot Ringworm Greg Preston. [address] [place] [address], [id number] 00CC, [place], [id number], . tel:[phone] [facility], [address] [place] [address], [facility], tel:[phone] [facility] toe on right foot numb at night (chief complaint)toes nails trimming (chief complaint) Pain In Limb Greg Preston. [address] [place] [address], [id number] [address] [place] [address], [id number], . tel:[phone] [facility], [address] [place] [address], [facility], tel:[phone] [facility] ROUTINE DM PT (chief complaint) FLAT FOOT Greg Preston. [address] [place] [address], [id number] [place], [place], [id number], . tel:[phone] [facility], [address] [place] [address], [facility], tel:[phone] [facility] Pain In Limb Greg rPeston. [address] [place] [address], [id number] [address] [place] [address], [id number], . tel:[phone] Family History Family Member Type Diagnosis Age At Onset self Problem (finding) Diabetes mellitus Immunizations Vaccine Date Status Comments Flu (split) (3 yrs or older) administered Note: Site care and Anti- Pyretic and pain instructions given. ; Source: New Immunization Record flu (split) (3 yrs or older) administered Note: Site care and Anti- Pyretic and pain instructions given. ; Source: New Immunization Record pneumo (2 yrs or older) (PPV23) administered Note: Site care and Anti-Pyretic and pain instructions given. ; Source: New Immunization Record flu (split) (3 yrs or older) administered Note: Site care and Anti- Pyretic and pain instructions given. ; Source: New Immunization Record Payers Payer name Insurance type Covered republican ID Authoriza tion(s) Medicare [place] [id number] [facility] [id number] Social History Type Description Quantity Date Captured Comments Alcohol Use Details No Caffeine Use Details coffee 2 cups per day Tobacco Use Status Current non-smoker 20 Smoking Status Never smoker Non-Smoking Tobacco Use Details : No Details Available : No Details Available Sex Male Vital Signs Date / Time: Height Weight BMI Pulse Rate Blood Pressure Temperature Respiratory Rate Body Surface Area Head Circumference Head Circ. Percentile Wt./Will. Percentile BMI percentile Pulse Ox Inhaled Ox 3:10 PM 61.00 in 70.760 kg (156.00 lbs) 29.4 8 kg/m eter (2) 107 /min 115/69 mm[Hg] 97.60 F 18 /min 1.75 meter(2) Chief Complaint And Reason For Visit From encounter dated '03/12/2017 17:00'. back pain (chief complaint). Description: Onset: 2 days ago. Location of pain is upper back. Pain is radiated to the LEFT SHOULDER.The patient describes the pain as throbbing. Context: no injury. Symptoms are aggravated by lifting.The patient denies relieving factors. Pertinent negatives include bladder incontinence and bowel incontinence. Additional information: pt reports muscle spasm to the left paraspinous cervical area and left shoulder. denies injury or fall. Plan Of Treatment Date Type Action Status Referral Ordered: Mohan Garza DPM (related to DM II Uncontrolled (+v58.67 If Insulin)) ordered Referral Referred To: Mohan Garza DPM [address] [place] [address] [id number], [address] [id number] Ordered: Referral: Mohan Garza DPM. Podiatry. Evaluate and treat. ordered Referral Ordered: Gastroenterology. ordered Referral Referred To: Quincy Lira MD [address] [place] [address], [address] [phone] Ordered: Referral: Quincy Lira MD. Gastroentergy. Evaluate and treat. ordered Future Order: Lab Order CMP ([id number]), O rdered on: Ordered Future Order: Lab Order Hemoglob in A1c ([id number]), Ordered on: Ordered Future Order: Lab Order Lipid Pa kyler ([id number]), Ordered on: Ordered Future Order: Lab Order Microalb /Creat Ratio, Randm Ur ([id number]), Ordered on: Ordered Future Order: Lab Order Microalb /Creat Ratio, Randm Ur ([id number]), Sent on: Sent Future Order: Lab Order Prostate -Specific Ag, Serum ([id number]), Sent on: Sent Future Order: Lab Order Hemoglob in A1c ([id number]), Sent on: Sent Future Order: Lab Order Hepatic Function Panel (7) ([id number]), Ordered on: Ordered Future Order: Lab Order Comp. Me tabolic Panel (14) ([id number]), Ordered on: Ordered Future Order: Lab Order Lipid Pa kyler ([id number]), Ordered on: Ordered Future Order: Lab Order Free Thy roxine + T4 ([id number]), Ordered on: Ordered Future Order: Lab Order Prostate -Specific Ag, Serum ([id number]), Ordered on: Ordered Future Order: Lab Order CBC With Differential/Platelet ([id number]), Appointment on: Ordered Future Order: Lab Order TSH ([id number]), Ord ered on: Ordered Future Order: Lab Order Hemoglob in A1c ([id number]), Ordered on: Ordered Future Order: Lab Order Lipid Pa kyler ([id number]), Ordered on: Ordered Future Order: Lab Order CMP ([id number]), O rdered on: Ordered Future Order: Lab Order Hemoglob in A1c ([id number]), Ordered on: Ordered Future Order: Lab Order UA w/lakhwinder ro ([id number]), Ordered on: Ordered History Of Present Illness Encounter Date Complaint History Of Prese nt Illness back pain Onset: 2 days ag o. Location of pain is upper back. Pain is radiated to the LEFT SHOULDER.The patient describes the pain as throbbing. Context: no injury. Symptoms are aggravated by lifting.The patient denies relieving factors. Pertinent negatives include bladder incontinence and bowel incontinence. Additional information: pt reports muscle spasm to the left paraspinous cervical area and left shoulder. denies injury or fall. Instructions Date Instruction Additional Infor mation Use Ibuprofen as dir ected up to 3 times a day with food. Use cream up to 3 times a day for pain relief. If no improvement return to the office and will refer to PT Related to Muscle spasm Activity as tolerated Warm compresses Protective activity OTC medication Activity as tolerated Take new medication as prescribe d Activity as tolerated Activity as tolerated Reviewed medications Take new medication as prescribe d Adequate nutritional intake Follow exercise program Increase activity level Take new medication as prescribe d Change medication Reviewed medications Practice good hygiene Patient understood and made info rmed decision Take new medication as prescribe d Increase rest Practice good hygiene Protective activity Patient understood and made info rmed decision Reviewed medications Assessments Type Assessment Date assessment Muscle spasm assessment Body mass index (BMI) 29.0-29.9, adult Mental Status Date Cognitive Assessment Orientation - [place] ed to time, place, person, situation.
--- OUTSIDE RECORDS SUMMARY | 2024-10-16 14:00 | XMS_ITS | Encounter Summary ---
Author Organization [employer] Address [address] [place] [address] [address] [address] Care Team Providers Care Oil Extractor Name Role Phone Mathew Oleary MD Primary Care Provide r Reason for Referral * Consultation (Routine) - Authorized Specialty Diagnoses / Procedures Referred By Contamna t Referred To Contact Orthopaedic Surgery Diagnoses Right lateral epicondylitis Mathew Oleary MD [address] [place] [address] Phone: tel: fax: [facility] [address] [place] [address] Phone: tel: Referral ID Status Reason Start Date Expiration Date Visits Requested Visits Authorized [id number] Authorized Specialty Services Required 10/16/2024 10/16/2025 1 1 * Consultation (Routine) - Authorized Specialty Diagnoses / Procedures Referred By Contac t Referred To Contact General Surgery Diagnoses Left inguinal hernia Mathew Oleary MD [address] [place] [address] Phone: tel: fax: Nayan Geiger MD [address] [place] [address] Phone: tel: fax: Referral ID Status Reason Start Date Expiration Date Visits Requested Visits Authorized [id number] Authorized Specialty Services Required 10/16/2024 10/16/2025 1 1 Reason for Visit * Reason Comments Follow-up Encounter Details Date Type Department Care Team (Jovanni st Contact Info) Description 10/16/2024 2:00 PM EDT Office Visit [facility] [address] [place] [address] Mathew Oleary MD [address] [place] [address] Essential hypertension (Primary Dx); Left inguinal hernia; Right lateral epicondylitis; Preventative health care; Pain Social History Tobacco Use Types Packs/Day [...] Date Recorded Patient Health Questionnaire-9 Score 0 10/16/2024 Patient Health Questionnaire-9 Score 0 10/16/2024 Last PHQ-9: Questionnaire Data Not on file 0 10/16/2024 Housing Stability Answer Date Recorded What is your housing situation today? I have giftyсергей alarcon 06/07/[address] you [...] Date Recorded Patient Health Questionnaire-2 Score 0 10/16/2024 Internet Access Answer Date Recorded Internet Access [...] AM EDT documented as of this encounter Last Filed Vital Signs Vital Sign Reading Time Taken Comments Blood Pressure 134/84 10/16/2024 1:44 PM EDT Pulse 78 10/16/2024 1:44 PM EDT Temperature 36.2 C (97.2 F) 10/16/2024 1:44 PM EDT Respiratory Rate 20 10/16/2024 1:44 PM EDT Oxygen Saturation - - Inhaled Oxygen Concentration - - Weight 104 kg (230 lb) 10/16/2024 1:44 PM EDT Height 188 cm (6' 2 ) 10/16/2024 1:44 PM EDT Body Mass Index 29.53 10/16/2024 1:44 PM EDT documented in this encounter Functional Status * Over the past 2 weeks, how often have you been bothered by any of the following problems? Question Answer Date of Assessment Author Patient Health Questionnaire -2 Score 0 10/16/2024 1:54 PM EDT Ale Ko MA * Little interest or pleasure in doing things Answer Date of Assessment Author Not at all 10/16/2024 1:54 PM EDT Ale Ko MA * Feeling down, depressed, or hopeless Answer Date of Assessment Author Not at all 10/16/2024 1:54 PM EDT Ale Ko MA * Trouble falling or staying asleep, or sleeping too much Answer Date of Assessment Author Not at all 10/16/2024 1:54 PM EDT Ale Ko MA * Feeling tired or having little energy Answer Date of Assessment Author Not at all 10/16/2024 1:54 PM EDT Ale Ko MA * Poor appetite or overeating Answer Date of Assessment Author Not at all 10/16/2024 1:54 PM EDT Ale Ko MA * Feeling bad about yourself - or that you are a failure or have let yourself or your family down Answer Date of Assessment Author Not at all 10/16/2024 1:54 PM EDT Ale Ko MA * Trouble concentrating on things, such as reading the newspaper or watching television Answer Date of Assessment Author Not at all 10/16/2024 1:54 PM EDT Ale Ko MA * Moving or speaking so slowly that other people could have noticed? Or the opposite - being so fidgety or restless that you have been moving around a lot more than usual. Answer Date of Assessment Author Not at all 10/16/2024 1:54 PM EDT Ale Ko MA * Thoughts that you would be better off or hurting yourself in some way Answer Date of Assessment Author Not at all 10/16/2024 1:54 PM EDT Ale Ko MA * Patient Health Questionnaire-9 Score Answer Date of Assessment Author 0 10/16/2024 1:54 PM EDT Ale Ko MA documented as of this encounter Progress Notes * Mathew Lynch MD - 10/16/2024 2:00 PM EDT SUBJECTIVE Edgar Kruse is a 83 y.o. adult who presents for Follow-up. Edgar Arredondotiz, 83 years Hernia Pain and Swelling - History of hernia surgery, operated 3 times in the same area - Severe pain at the site of previous hernia operation approximately 2 months ago, described as pain of , rated 20/20 in intensity - Pain onset after climbing a high step and straining - Swelling at the surgical site, increases in size and pain with physical activity - Pain and swelling abated after several hours, but intermittent discomfort and swelling persist, especially at night and during work - No current pain at the time of encounter, but ongoing concern about recurrence Epicondylitis (Elbow Pain) - History of epicondyle irritation, received a cortisone injection in the elbow approximately 10-15years ago by an literacy specialist Hypertension This is a chronic problem. Pertinent negatives include no chest pain, headaches or shortness of breath. Review of Systems Constitutional: Negative for fever. HENT: Negative for sore throat. Respiratory: Negative for cough and shortness of breath. Cardiovascular: Negative for chest pain. Gastrointestinal: Negative for abdominal pain. Neurological: Negative for headaches. Allergies[1] OBJECTIVE Vitals: 10/16/24 1344 BP: 134/84 BP Location: Left arm Patient Position: Sitting BP Cuff Size: Large adult Pulse: 78 Resp: 20 Temp: 97.2 ??F (36.2 ??C) TempSrc: Oral Weight: 230 lb (104 kg) Height: 6' 2 (1.88 m) Physical Exam Vitals reviewed. Constitutional: Appearance: Normal appearance. HENT: Head: Normocephalic and atraumatic. Right Ear: External ear normal. Left Ear: External ear normal. Nose: Nose normal. Mouth/Throat: Mouth: Mucous membranes are moist. Eyes: Conjunctiva/sclera: Conjunctivae normal. Cardiovascular: Rate and Rhythm: Normal rate and regular rhythm. Pulmonary: Effort: Pulmonary effort is normal. Breath sounds: Normal breath sounds. Abdominal: Hernia: A hernia is present. Genitourinary: Comments: Protuberance left inguinal area Musculoskeletal: Left elbow: Tenderness present in lateral epicondyle. Skin: General: Skin is warm. Neurological: Mental Status: He is alert. Mental status is at baseline. Assessment/Plan Problem List Items Addressed This Visit Essential hypertension - Primary Pt here for a f/u controlled He is on a regimen of Toprol XL 125 mg po daily and Lisinopril 40 mg po daily Most recent electrolytes, Bun and Creatinine done on: Lab Results Component Value Date NA 144 07/22/2024 NA 143 03/09/2023 K 4.0 07/22/2024 K 4.1 03/09/2023 CL 110 (H) 07/22/2024 CL 107 03/09/2023 BUN 18 (H) 07/22/2024 BUN 16 03/09/2023 CREATININE 0.87 07/22/2024 CREATININE 0.86 03/09/2023 were within normal limits. Plan: Continue current regimen. patient advised to adhere to a low sodium diet, encouraged about medication compliance, counseled about weight loss. f/u 4 months Relevant Medications metoprolol succinate XL (Toprol XL) 25 MG 24 hr tablet metoprolol succinate XL (Toprol-XL) 100 MG 24 hr tablet Left inguinal hernia S/p repair on 02/14/[address] Geiger at [facility] Patient with c/o recurrent left inguinal pain after doing exercise On exam the left inguinal area is protuberant Plan: Refer back to Dr. Geiger Relevant Orders Referral to General Surgery Right lateral epicondylitis - Right lateral epicondylitis with persistent irritation. - Ordered radiograph of right elbow. Referred to orthopedics for evaluation and possible corticosteroid injection. Relevant Medications ibuprofen 600 MG tablet Other Relevant Orders XR Elbow 3+ Views Right Referral to Orthopaedic Surgery [facility] health care PSA 07/22/2024: 2.93. He has a Hx of elevated PSA 10.02 Colonoscopy: 10/23/2019 Dr Martins, 5 years had repeat due to hx of TA. Repeat 05/29/2024 showed: Diverticulosis, colon polyps x 2 (TAs) internal hemorrhoids . GI Plan: Repeat Colonoscopy in 5 years if health allows or earlier if clinically indicated Vaccines: Pneumovax: 09/19/2007 PCV 13: 12/15/2014 Td: 04/05/2012 Zoster: 05/14/2014 Other Visit Diagnoses Pain Relevant Medications ibuprofen 600 MG tablet This note was drafted using Ambient (AI) technology. The patient/patient's guardian has been informed and has consented to the use of this technology: Yes No future appointments. [1] No Known Allergies documented in this encounter Miscellaneous Notes * Assessment & Plan Note - Mathew Lynch MD - 10/16/2024 2:16 PM EDT Associated Problem(s): Right lateral epicondylitis - Right lateral epicondylitis with persistent irritation. - Ordered radiograph of right elbow. Referred to orthopedics for evaluation and possible corticosteroid injection. * Assessment & Plan Note - Mathew Lynch MD - 10/16/2024 2:07 PM EDT Associated Problem(s): Left inguinal hernia S/p repair on 02/14/[address] Geiger at [facility] Patient with c/o recurrent left inguinal pain after doing exercise On exam the left inguinal area is protuberant Plan: Refer back to Dr. Geiger * Assessment & Plan Note - Mathew Lynch MD - 10/16/2024 1:54 PM EDT Associated Problem(s): Preventative health care PSA 07/22/2024: 2.93. He has a Hx of elevated PSA 10.02 Colonoscopy: 10/23/2019 Dr Martins, 5 years had repeat due to hx of TA. Repeat 05/29/2024 showed: Diverticulosis, colon polyps x 2 (TAs) internal hemorrhoids . GI Plan: Repeat Colonoscopy in 5 years if health allows or earlier if clinically indicated Vaccines: Pneumovax: 09/19/2007 PCV 13: 12/15/2014 Td: 04/05/2012 Zoster: 05/14/2014 * Assessment & Plan Note - Mathew Lynch MD - 10/16/2024 1:53 PM EDT Associated Problem(s): Essential hypertension Pt here for a f/u controlled He is on a regimen of Toprol XL 125 mg po daily and Lisinopril 40 mg po daily Most recent electrolytes, Bun and Creatinine done on: Lab Results Component Value Date NA 144 07/22/2024 NA 143 03/09/2023 K 4.0 07/22/2024 K 4.1 03/09/2023 CL 110 (H) 07/22/2024 CL 107 03/09/2023 BUN 18 (H) 07/22/2024 BUN 16 03/09/2023 CREATININE 0.87 07/22/2024 CREATININE 0.86 03/09/2023 were within normal limits. Plan: Continue current regimen. patient advised to adhere to a low sodium diet, encouraged about medication compliance, counseled about weight loss. f/u 4 months documented in this encounter Plan of Treatment Scheduled Referrals Name Type Priority Associated Diagnoses Orde r Schedule Referral to General Surgery Outpatient Referral Routine Left inguinal hernia Expected: 10/16/2024 (Approximate), Expires: 10/16/2025 Referral to Orthopaedic Surgery Outpatient Referral Routine Right lateral epicondylitis Expected: 10/16/2024 (Approximate), Expires: 10/16/2025 documented as of this encounter Goals Goal Patient Goal Type Associated Problems Recent Progress Patient-Stated? Author Blood Pressure < 140/90 Blood Pressure 155/90( 025 10:49 AM EDT) No Sarah Bhandari, LuisD documented as of this encounter Procedures Procedure Name Priority Date/Time Associated Diagnosis Comments XR ELBOW 3+ VIEWS RIGHT Routine 10/16/2024 3:06 PM EDT Right lateral epicondylitis documented in this encounter Results * XR Elbow 3+ Views Right (10/16/2024 3:06 PM EDT) Anatomical Region Laterality Modality Upper Extremities, Elbow Right Radiogr aphic Imaging 10/16/2024 3:06 PM EDT Narrative 10/16/2024 3:19 [place] [address] XRay Report Signed Patient: Edgar Kruse MR#: [id number] : 1940 Acct:[id number] Age/Sex: 83 / M ADM Date: 10/16/24 Loc: HO.HHCX Attending Dr: Mathew Quarles MD Ordering Physician: Mathew Quarles MD Date of Service: 10/16/24 Procedure(s): XR elbow RT min 3V Accession Number(s): [id number] cc: Mathew Quarles MD Reason for Exam: right elbow pain EXAMINATION: XR ELBOW 3 VIEWS RIGHT HISTORY: right elbow pain COMPARISON: There are no prior studies available for comparison. FINDINGS: Four views of the right elbow are submitted. Osseous mineralization is normal. There is no fracture or dislocation. The joint spaces are preserved. The soft tissues are unremarkable. There is no joint effusion. XR/XR elbow RT min 3V IMPRESSION: Unremarkable examination of the right elbow. Electronically signed by: Atilio eMad MD 10/16/2024 03:16 PM EDT RP Dictated By: Atilio Mead MD Signed By: <Electronically signed by Atilio Mead MD in OV> 10/16/24 1516 DD/ 1506 TD/TT: 10/16/24 1507 Belting Inspector: Procedure Note Donotbubbainterpreter, Image - 10/16/[address] [address] XRay Report Signed Patient: Triny Kruse#: [id number] : 1940cct:[id number] Age/Sex: 83 / MADM Date: 10/16/24 Loc: HO.HHCX Attending Dr: Mathew Quarles MD Ordering Physician: Mathew Quarles MD Date of Service: 10/16/24 Procedure(s): XR elbow RT min 3V Accession Number(s): [id number] cc: Mathew Quarles MD Reason for Exam: right elbow pain EXAMINATION: XR ELBOW 3 VIEWS RIGHT HISTORY: right elbow pain COMPARISON: There are no prior studies available for comparison. FINDINGS: Four views of the right elbow are submitted. Osseous mineralization is normal. There is no fracture or dislocation. The joint spaces are preserved. The soft tissues are unremarkable. There is no joint effusion. XR/XR elbow RT min 3V IMPRESSION: Unremarkable examination of the right elbow. Electronically signed by: Atilio Mead MD 10/16/2024 03:16 PM EDT RP Dictated By: Atilio Mead MD Signed By: <Electronically signed by Atilio Mead MD in OV> 10/16/24 1516 DD/ 1506 TD/TT: 10/16/24 1507 Belting Inspector: us Mathew Lynch MD IMG XR PROCEDURES Fin al Result documented in this encounter Visit Diagnoses Diagnosis Essential hypertension- Primary Unspecified essential hypertension Left inguinal hernia Inguinal hernia without mention of obstruction or gangrene, unilateral or unspecified, (not specified as recurrent) Right lateral epicondylitis Preventative health care Routine general medical examination at a health care facility Pain Generalized pain documented in this encounter Additional Health Concerns Assessment Noted Time PHQ-9 Depression Total Score: 0 10/17/19 1:54 PM EDT documented as of this encounter Care Teams Oil Extractor Relationship Specialty Start Date End Date Mathew Oleayr MD [address] [place] [address] PCP - General Internal Medicine 11/14/13 documented as of this encounter
--- NOTE | 2024-10-20 | ECG_ITS ---
Test Reason : PRE OP Blood Pressure : */* mmHG Vent. Rate : 61 BPM Atrial Rate : 61 BPM P-R Int : 288 ms QRS Dur : 152 ms QT Int : 468 ms P-R-T Axes : 43 -49 11 degrees QTcB Int : 471 ms Sinus rhythm with 1st degree A-V block Right bundle branch block Left anterior fascicular block Bifascicular block Abnormal ECG When compared with ECG of 09-Aug-2021 11:54, No significant change was found Referred By: Tabitha Ray Electronically Signed By: ANITHA LOVE
--- NOTE | ~2024-10-20 | US_ITS ---
EXAMINATION: US LOWER EXTREMITY VEINS LIMITED FOLLOW UP LEFT HISTORY: pre op clearance rule out blood clot COMPARISON: There are no prior studies available for comparison. TECHNIQUE: Duplex and color Doppler sonographic examination of the deep venous system of the left lower extremity was performed. FINDINGS: The common femoral, superficial femoral, and popliteal veins are patent demonstrating normal compressibility, spontaneous flow, and augmentation. There is a normal color and spectral Doppler waveform appearance of the visualized deep venous system above the knee. The posterior tibial and peroneal veins are patent. The greater saphenous vein is not well visualized. US/US venous duplex LE LT IMPRESSION: No evidence of acute DVT in the left lower extremity. Electronically signed by: Atilio Mead MD 10/21/2024 07:33 AM EDT
--- NOTE | ~2024-10-20 | CT_ITS ---
CLINICAL HISTORY: left groin pain --- Additional Notes or Special Instructions: To be done as outpatient per Dr Dunn CT abdomen and pelvis with contrast Comparison: 01/05/2022 Findings: Left inguinal hernia contains portion of bladder. Inflammatory stranding noted within the hernia. This may indicate developing incarceration. Appearance is similar to prior study of 2021. Correlation with physical exam will be needed. No bowel involvement or distention. Stable left lower lobe scarring. Degenerative change spine and hips. No acute bony abnormality noted. Liver and spleen within normal limits. Pancreas and adrenal glands unremarkable. Gallbladder is within normal limits. No significant focal renal abnormalities. No renal stones or hydronephrosis. Stable left lower pole renal cyst. Abdominal aorta is normal in caliber. No free fluid or adenopathy in the pelvis. No diverticulitis. Appendix unremarkable. Impression: Left inguinal hernia contains portion of bladder Inflammatory stranding around this concerning for incarceration Jesus is similar to previous study, please correlate with physical exam This document has been electronically signed by: Lucio Butcher MD on 10/20/2024 19:53:02
--- OUTSIDE RECORDS SUMMARY | 2024-10-20 10:40 | XMS_ITS | Encounter Summary ---
Author Organization [employer] Address [address] [facility] [address] [place] [address] Care Team Providers Care Cnc Lathe Machinist Name Role Phone Mathew Oleary MD Primary Care Provide r Reason for Visit * Reason Comments Abdominal Pain Encounter Details Date Type Department Care Team ([facility] st Contact Info) Description 10/20/2024 10:40 AM EDT Office Visit [facility] [address] [place] [address] Dg Garibay MD [address] [place] [address] Essential hypertension (Primary Dx); Left lower quadrant abdominal mass Social History Tobacco Use Types Packs/Day Years [...] Sign Reading Time Taken Comments Blood Pressure 155/90 10/20/2024 10:49 AM EDT Pulse 58 10/20/2024 10:49 AM EDT Temperature 36.6 C (97.8 F) 10/20/2024 10:49 AM EDT Respiratory Rate 17 10/20/2024 10:49 AM EDT Oxygen Saturation 98% 10/20/2024 10:49 AM EDT Inhaled Oxygen Concentration - - Weight 104 kg (228 lb 9.6 oz) 10/20/2024 10:49 A M EDT Height - - Body Mass Index 29.35 10/16/2024 1:44 PM EDT documented in this encounter Progress Notes * Dg Garibay MD - 10/20/2024 10:40 AM EDT Subjective Patient ID: Edgar Kruse is a 83 y.o. adult. HPI Edgar came to [facility] today because starting 3 days ago he has had swelling and worsening pain in in left lower abd. + n/v 2 days ago. Pain is worse when seated, slightly improved when standing. Edgar states that since lower abdominal hernia surgery 2 years he has had constant lower abd pain. 6 weeks ago pain worsened. PCP sent referral to [facility] when seen in office last week. Lives with . Never smoked. No EtOH Patient Active Problem List Diagnosis Date Noted Right lateral epicondylitis 10/16/2024 IBS (irritable bowel syndrome) 03/27/2024 PVD (peripheral vascular disease) ([facility]) 03/27/2024 Obesity, Class I, BMI 30.0-34.9 (see actual BMI) 09/11/2023 Preventative health care 09/11/2023 Seborrheic keratosis 03/08/2023 Syncope 03/12/2022 Alzheimer's dementia ([facility]) 03/12/2022 Other male erectile dysfunction 03/12/2022 Left inguinal hernia 12/23/2021 Complex renal cyst 12/23/2021 Benign prostatic hyperplasia 06/27/2018 Essential hypertension 12/15/2014 Rosacea 03/27/2013 Obstructive sleep apnea syndrome 01/15/2012 Tension-type headache 09/04/2011 Chronic obstructive lung disease ([facility]) 07/19/2011 Varicose veins of lower extremity 02/05/1959 Gastritis 02/05/1959 The following portions of the chart were reviewed this encounter and updated as appropriate: Tobacco Allergies Meds Problems Med Hx Surg Hx Fam Hx Review of Systems Constitutional: Negative for fever. Respiratory: Negative for shortness of breath. Cardiovascular: Negative for chest pain. Gastrointestinal: Positive for abdominal pain, nausea and vomiting. Skin: Negative for rash. Neurological: Negative for headaches. Objective Physical Exam Constitutional: Appearance: Normal appearance. HENT: Nose: Nose normal. Eyes: Conjunctiva/sclera: Conjunctivae normal. Pupils: Pupils are equal, round, and reactive to light. Cardiovascular: Rate and Rhythm: Normal rate and regular rhythm. Heart sounds: No murmur heard. Pulmonary: Effort: Pulmonary effort is normal. Breath sounds: Normal breath sounds. Abdominal: General: Abdomen is flat. Palpations: Abdomen is soft. Tenderness: There is abdominal tenderness (left lower quadrant). Hernia: A hernia (tender in left inguinal area.) is present. Musculoskeletal: General: Normal range of motion. Cervical back: No tenderness. Skin: Findings: No rash. Neurological: Mental Status: He is alert. Gait: Gait is intact. Psychiatric: Mood and Affect: Mood normal. Behavior: Behavior normal. Procedures Assessment/Plan Diagnoses and all orders for this visit: Left lower quadrant abdominal mass Possible incarcerated left inguinal hernia Edgar will be going to the ED now for further evaluation. Essential hypertension BP was normal at PCP visit last week. Will be rechecked in the ED today. * Adali Jurado RN - 10/20/2024 10:40 AM EDT Telephone call [facility] to the [facility] for an expect . Kaycee was advised that the pt was seen her in the [facility] today by Dr. Garibay for ? Of an incarcerated left inguinal hernia . Kaycee was advised that the pt has seen Dr. Geiger at [facility] before regarding this . Was advised that the pt will be coming by car with his notes from today's visit with Dr. Garibay . Kaycee verbalized understanding ,and agrees with the plan . documented in this encounter Plan of Treatment Not on file documented as of this encounter Goals Goal Patient Goal Type Associated Problems Recent Progress Patient-Stated? Author Blood Pressure < 140/90 Blood Pressure 155/90( 025 10:49 AM EDT) No Sarah Bhandari, PharmD documented as of this encounter Visit Diagnoses Diagnosis Essential hypertension- Primary Unspecified essential hypertension Left lower quadrant abdominal mass Abdominal or pelvic swelling, mass, or lump, left lower quadrant documented in this encounter Additional Health Concerns Assessment Noted Time PHQ-9 Depression Total Score: 0 10/17/19 25 1:54 PM EDT documented as of this encounter Care Teams Cnc Lathe Machinist Relationship Specialty Start Date End Date Mathew Oleary MD [address] [place] [address] PCP - General Internal Medicine 11/14/13 documented as of this encounter
--- NOTE | 2024-10-20 12:32 | ED.GENADULT ---
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 Patient reports that he has had a known inguinal hernia for several years. He actually had an inguinal hernia repair 2 years ago. He has had increasing pain to the left groin for the last few weeks. However since Sunday night, 2 days ago he has had significantly worsening pain he reports having some difficulty urinating today as he has not been able to go since this morning. His pain is currently a 6/10 denies any nausea vomiting. Denies any fevers, chills. He saw his doctor today and was referred to the ER to rule out an incarcerated hernia Related Data Home Medications ?Medication ?Instructions ?Recorded ?Confirmed fluticasone propionate 50 2 spray intranasal DAILY 07/08/20 11/21/22 mcg/actuation nasal spray,suspension lisinopril 40 mg tablet 40 mg PO DAILY 07/08/20 11/21/22 metoprolol succinate 100 mg 100 mg PO DAILY 07/08/20 11/21/22 tablet,extended release 24 hr polyvinyl alcohol 1.4 % eye drops 1 drp ophthalmic (eye) DIRECTED 07/08/20 11/21/22 metoprolol succinate 25 mg 25 mg PO DAILY 02/22/21 11/21/22 tablet,extended release 24 hr multivitamin 1 tab PO DAILY 08/19/21 11/21/22 aspirin 81 mg tablet,delayed 81 mg PO QAM 11/14/23 release Previous Rx's ?Medication ?Instructions ?Recorded ibuprofen 600 mg tablet 600 mg PO Q6H PRN pain #30 tabs 12/10/20 cyclobenzaprine 5 mg tablet 5 mg PO BEDTIME PRN muscle spasm 02/20/24 #7 tabs bisacodyl 5 mg tablet,delayed 10 mg (2 x 5 mg) PO BEDTIME #180 06/18/24 release (Dulcolax (bisacodyl)) tabs famotidine 40 mg tablet 40 mg PO BEDTIME #90 tabs 06/18/24 pantoprazole 40 mg tablet,delayed 40 mg PO DAILY #90 tabs 06/18/24 release Allergies Allergy/AdvReac Type Severity Reaction Status Date / Time No Known Allergies (No Known Allergy Verified 10/20/24 12:36 Allergies*) Review of Systems Constitutional: Constitutional: Denies body ache(s), Denies chills and Denies fever(s) Eyes: Eyes: Denies blurry vision ENT: Denies vertigo Cardiovascular: Cardiovascular: Denies chest pain and Denies dyspnea on exertion Respiratory: Respiratory: Denies cough and Denies dyspnea on exertion Gastrointestinal: Gastrointestinal: Reports abdominal pain, Denies melena, Denies hematochezia, Reports nausea and Denies vomiting Genitourinary: Genitourinary: Reports oliguria and Denies flank pain Musculoskeletal: Musculoskeletal: Denies back pain Integumentary/Breasts: Skin/Breast: Denies rash Neurologic: Denies vertigo Psychiatric: Psychiatric: Denies anxiety [facility] Past Medical History Medical History (Updated 10/20/24 @ 20:36 by Wallace Roche) Tubular adenoma of colon Left groin pain Epidermal cyst COVID-19 vaccine series completed BPH (benign prostatic hyperplasia) GERD (gastroesophageal reflux disease) HTN (hypertension) Recurrent inguinal hernia Lower abdominal pain Surgical History History of removal of cyst History of removal of cyst History of left inguinal hernia repair Hx of varicose vein ligation and stripping H/O colonoscopy History of hernia surgery Hx of cystoscopy Hx of transurethral resection of prostate History of hernia surgery Family History Family History Sister Breast cancer Social History Social History Household Members: Spouse Housing: House Are you a primary child care supervisor to a significant other at home: No Do you presently have visiting nurse or other home services: No Alcohol intake: never Patient Tobacco Use Status: Never used Tobacco Smoked in Last 30 Days: No Use of substances other than those prescribed or required for medical reasons: No Advance Directives: No Advance Directives Information Provided: No service: No Current occupational status: retired Physical Exam ED Vital Signs: Vital Signs - 24 hr 10/20/24 12:33 10/20/24 17:43 10/20/24 19:55 Temperature 98.1 F 97.7 F 97.6 F Pulse Rate 64 61 59 Respiratory Rate 18 18 16 Blood Pressure 153/85 H 152/92 H 142/80 H Pulse Oximetry 97 98 97 Oxygen Delivery Method Room Air Room Air Room Air BMI result Body Mass Index 29.3 Const General: healthy appearing, comfortable, no acute distress, alert and awake Nutritional Appearance: well nourished Orientation/consciousness: patient oriented x3 HENMT Head: Yes normocephalic and Yes atraumatic Eyes Eyelids: Yes eyelids normal Conjunctivae: conjunctivae normal Sclerae: sclerae normal Corneas: corneas normal Pupils: Equal, round and reactive pupils present EOM: EOMs intact bilaterally Neck Neck: Yes full ROM Resp Effort & Inspection: normal respiratory effort, able to speak in complete sentences and not labored Cardio Rate: regular rate Rhythm: regular rhythm GI Inspection: No distended Palpation (GI): Soft to palpation, not firm and not rigid Other: palpable left inguinal mass consistent with hernia. the area is firm and exquisitely tender. No overlying skin changes such as erythema Male General Exam: Yes hernia Skin General skin exam: elasticity normal Neuro General: patient oriented x3 Cranial nerves: Yes Equal, round and reactive pupils present and Yes Bilaterally intact EOM present Cognition (Neuro): normal cognition Extrem Other: Moving all extremities well without any obvious deformities Course Course Course Narrative: This is a rapid medical exam performed by Jacob Covington NP: Additional HPI, ROS, PE not included below will be deferred to primary provider. Patient is an 83yo M referred to the ED from [facility] for concern of incarcerated left inguinal hernia. Patient states he has had pain in this area since surgery 2 yrs ago. Sunday pain was 15/10 right now around 5/10. Worse with sitting, improves with standing. Plan: labs, UA, will defer imaging to primary provider Reevaluation(s) Reevaluation #1: CT scan shows a left inguinal hernia containing a portion of the bladder there is surrounding inflammatory stranding concerning for incarceration. A take your message was sent to on-call general surgery, Dr. Tang Time: 20:37 Medications Administered Discontinued Medications Generic Name Dose Route Start Last Admin Trade Name Freq PRN Reason Stop Dose Admin Iohexol 100 ml 10/20/24 18:48 10/20/24 18:48 Iohexol 350 Mg/Ml 100 Ml Infus..Btl IV 10/20/24 18:49 85 ml ONCE ONE Administration Medical Decision Making Medical Decision Making [facility] Narrative: 83-year-old male presents for evaluation of left inguinal pain. Clinically he has an inguinal hernia. I was unable to reduce this on exam. He is afebrile, no leukocytosis. He did have an initial lactic acid of 2.7. In his possible that he had a strangulated her, however the fact that the lactic acidosis improved without any fluids is reassuring. We will order a CT scan of the abdomen pelvis. the patient declines analgesia Differential Diagnosis Differential Diagnoses: The differential diagnosis associated with the presentation includes inguinal hernia The rectum hernia Indirect inguinal hernia Bowel obstruction constipation Lab Data [facility] Lab Attestation statement: I reviewed the patient's lab results. 10/20/24 13:23 10/20/24 13:23 Labs: Lab Results 10/20/24 10/20/24 Range/Units 13:23 15:58 WBC 5.4 (4.8-10.8) X10*3/uL RBC 4.84 (4.60-5.80) X10*6/uL Hgb 14.6 (14.0-18.0) g/dl Hct 42.9 (42.0-52.0) % MCV 88.6 (80.0-98.0) fL MCH 30.2 (27.0-33.0) pg MCHC 34.0 (31.0-36.0) g/dl RDW 13.0 (11.0-16.0) % Plt Count 194 (160-400) X10*3/uL MPV 10.3 (9.4-12.4) fL Immature Gran % (Auto) 0.2 (0.0-0.4) % Neut % (Auto) 52.4 (45-73) % Lymph % (Auto) 38.1 (20-40) % [place] % (Auto) 6.7 (2-11) % Eos % (Auto) 1.5 (0-4) % Baso % (Auto) 1.1 (0-2) % Lymph # (Auto) 2.1 (1.2-4.9) X10*3/uL [place] # (Auto) 0.4 (0.1-1.2) X10*3/uL Eos # (Auto) 0.1 (0.0-0.4) X10*3/uL Baso # (Auto) 0.1 (0.0-0.2) X10*3/uL Abs Immat Gran (auto) 0.01 (0.00-0.03) X10*3/uL Absolute Neuts (auto) 2.8 (2.0-8.3) x10*3/uL Absolute Nucleated RBC 0.000 (0.0-0.012) X10*3/uL Nucleated RBC % (auto) 0.0 (0.0-0.2) /100WBC Sodium 143 (135-145) mmol/L Potassium 3.7 (3.3-5.1) mmol/L Chloride 110 H (96-108) mmol/L Carbon Dioxide 24 (22-29) mmol/L Anion Gap 13 (12-20) BUN 17 H (9-16) mg/dL Creatinine 0.91 (0.5-1.4) mg/dL Estim Creat Clear Calc 81.6 Estimated GFR > 60 Random Glucose 114 (60-115) mg/dL Lactic Acid 2.7 H* (0.5-2.0) mmol/L Lactic Acid F/U @ 2Hr 1.4 (0.5-2.0) mmol/L Calcium 8.9 (8.4-10.2) mg/dL Total Bilirubin 0.7 (0.0-1.0) mg/dL AST 28 (5-37) U/L ALT 14 (0-40) U/L Alkaline Phosphatase 70 (39-117) U/L Total Protein 6.8 (6.5-8.0) g/dL Albumin 3.9 (3.5-5.0) g/dL Independent Interpretation I performed an independent interpretation of an: CT Scan ( left inguinal hernia) Radiology Impression Discussion of test interpretation with radiology: I have reviewed the radiologist's reading. Radiologist Impression: Findings: Left inguinal hernia contains portion of bladder. Inflammatory stranding noted within the hernia. This may indicate developing incarceration. Appearance is similar to prior study of 2021. Correlation with physical exam will be needed. No bowel involvement or distention. Stable left lower lobe scarring. Degenerative change spine and hips. No acute bony abnormality noted. Liver and spleen within normal limits. Pancreas and adrenal glands unremarkable. Gallbladder is within normal limits. No significant focal renal abnormalities. No renal stones or hydronephrosis. Stable left lower pole renal cyst. Abdominal aorta is normal in caliber. No free fluid or adenopathy in the pelvis. No diverticulitis. Appendix unremarkable. Impression: Left inguinal hernia contains portion of bladder Inflammatory stranding around this concerning for incarceration Jesus is similar to previous study, please correlate with physical exam This document has been electronically signed by: Lucio Butcher MD on 10/20/2024 19:53:02 Discharge Plan Discharge Clinical Impression: Hernia, inguinal, left Patient Disposition: Admitted As Inpatient Print Language: Spanish
[2024-10-20 12:33] VITALS: BP 153/85; PULSE 64; RESP 18; TEMP 36.7; O2SAT 97; BMI 29.3
[2024-10-20 13:27] LABS: MANUAL DIFF FLAG NO
[2024-10-20 13:30] LABS: Hematocrit 42.9 % (42.0-52.0); Hemoglobin 14.6 g/dl (14.0-18.0); Imm Gran Abs Auto 0.01 X10*3/uL (0.00-0.03); Imm Gran Pct Auto 0.2 % (0.0-0.4); Lymphocytes Absolute Auto 2.1 X10*3/uL (1.2-4.9); Mean Corpuscular HGB Conc 34.0 g/dl (31.0-36.0); Mean Corpuscular Hemoglobin 30.2 pg (27.0-33.0); Mean Corpuscular Volume 88.6 fL (80.0-98.0); NRBC Abs Auto 0.000 X10*3/uL (0.0-0.012); NRBC Pct Auto 0.0 /100WBC (0.0-0.2); Platelet Count 194 X10*3/uL (160-400); Red Blood Count 4.84 X10*6/uL (4.60-5.80); White Blood Count 5.4 X10*3/uL (4.8-10.8)
[2024-10-20 13:46] LABS: Alanine Aminotransferase 14 U/L (0-40); Albumin Level 3.9 g/dL (3.5-5.0); Alkaline Phosphatase 70 U/L (39-117); Anion Gap 13 (12-20); Aspartate Amino Transferase 28 U/L (5-37); Blood Urea Nitrogen 17 mg/dL (9-16); Calcium 8.9 mg/dL (8.4-10.2); Carbon Dioxide 24 mmol/L (22-29); Chloride 110 mmol/L (96-108); Creatinine Clr Calc Pharmacy 81.6; Estimated Glomerular Filt Rate > 60; Potassium 3.7 mmol/L (3.3-5.1); Sodium 143 mmol/L (135-145); Total Protein 6.8 g/dL (6.5-8.0)
[2024-10-20 15:28] LABS: Reflex Lactate? Lactic Acid Added
[2024-10-20 16:16] LABS: ~Lactic Acid-LAB USE ONLY 1.4 mmol/L (0.5-2.0)
[2024-10-20 17:43] VITALS: BP 152/92; PULSE 61; RESP 18; TEMP 36.5; O2SAT 98
--- OUTSIDE RECORDS SUMMARY | 2024-10-20 18:40 | XMS_ITS | Encounter Summary ---
Author Organization [email or web address] Address [address] [place] [address] [address] [place] [address] Care Team Providers Care Aircraft General Repair Mechanic Name Role Phone Mathew Oleary MD Primary Care Provide r Reason for Visit * Reason Comments Med Refill Encounter Details Date Type Department Care Team ([facility] st Contact Info) Description 11/05/2022 Refill [facility] MEDICINE [address] [place], [place] [phone] Mathew Oleary MD [address] [place], [place] [phone] Social History Tobacco Use Types Packs/Day Years [...] 025 10:49 AM EDT) No Sarah Bhandari, Jil documented as of this encounter Visit Diagnoses Not on filedocumented in this encounter Additional Health Concerns Assessment Noted Time PHQ-9 Depression Total Score: 0 03/14/19 23 11:51 AM EST documented as of this encounter Care Teams Aircraft General Repair Mechanic Relationship Specialty Start Date End Date Mathew Oleary MD [address] [place] [phone] PCP - General Internal Medicine 11/14/13 documented as of this encounter
--- OUTSIDE RECORDS SUMMARY | 2024-10-20 18:40 | XMS_ITS | Encounter Summary ---
Author Organization [employer] Address [address] [place] [address] Care Team Providers Care Line Painting Machine Operator Name Role Phone Mathew Oleary MD Primary Care Provide r Encounter Details Date Type Department Care Team ([facility] st Contact Info) Description 10/15/2024 Telephone [facility] [address] [place], [place] [phone] Ayleen Aiken [place] Social History Tobacco Use [...] documented as of this encounter Care Teams Line Painting Machine Operator Relationship Specialty Start Date End Date Mathew Oleary MD [address] [place] [phone] PCP - General Internal Medicine 11/14/13 documented as of this encounter
--- OUTSIDE RECORDS SUMMARY | 2024-10-20 18:40 | XMS_ITS | Encounter Summary ---
Author Organization [employer] Address [address] [place] [address] Care Team Providers Care Research Program Coordinator Name Role Phone Mathew Oleary MD Primary Care Provide r Encounter Details Date Type Department Care Team (Latest Contact Info) Description 10/20/2024 Travel Social History Tobacco Use Types Packs/Day [...] documented as of this encounter Care Teams Research Program Coordinator Relationship Specialty Start Date End Date Mathew Oleary MD [address] [place] [phone] PCP - General Internal Medicine 11/14/13 documented as of this encounter
--- OUTSIDE RECORDS SUMMARY | 2024-10-20 18:40 | XMS_ITS | Encounter Summary ---
Author Organization [employer] Address [address] [facility] [address] [address] [place] [address] Care Team Providers Care Mechanical Expert Name Role Phone Mathew Oleary MD Primary Care Provide r Reason for Visit * Reason Comments Med Refill Encounter Details Date Type Department Care Team ([facility] st Contact Info) Description 07/23/2024 Refill [facility] MEDICINE [address] [place], [place] [phone] Mathew Oleary MD [address] [place], [place] [phone] Essential hypertension Social History Tobacco Use Types [...] documented as of this encounter Care Teams Mechanical Expert Relationship Specialty Start Date End Date Mathew Oleary MD [address] [place] [phone] PCP - General Internal Medicine 11/14/13 documented as of this encounter
--- OUTSIDE RECORDS SUMMARY | 2024-10-20 18:40 | XMS_ITS | Encounter Summary ---
Author Organization [employer] Address [address] [place] [address] Care Team Providers Care Cement Breaker Name Role Phone Mathew Oleary MD Primary [...] documented as of this encounter Care Teams Cement Breaker Relationship Specialty Start Date End Date Mathew Oleary MD [address] [place] [phone] PCP - General Internal Medicine 11/14/13 documented as of this encounter
--- OUTSIDE RECORDS SUMMARY | 2024-10-20 18:40 | XMS_ITS | Encounter Summary ---
Author Organization [employer] Address [address] [facility] [address] [address] [place] [address] Care Team Providers Care Warning Analyst Name Role Phone Mathew Oleary MD Primary Care Provide r Reason for Visit * Reason Comments Med Refill Encounter Details Date Type Department Care Team ([facility] st Contact Info) Description 04/02/2024 Refill [facility] MEDICINE [address] [place], [place] [phone] Mathew Oleary MD [address] [place], [place] [phone] Pain Social History Tobacco Use Types Packs/Day [...] documented as of this encounter Care Teams Warning Analyst Relationship Specialty Start Date End Date Mathew Oleary MD [address] [place] [address] PCP - General Internal Medicine 11/14/13 documented as of this encounter
--- OUTSIDE RECORDS SUMMARY | 2024-10-20 18:40 | XMS_ITS | Clinical Summary ---
Author Organization [employer] Address [address] [facility] [address] [place] [address] Care Team Providers Care Appliance Servicer Name Role Phone Mathew Oleary MD Primary [...] mouth at bedtime. 01/10/20 23 Active Creon 49623-09563 units capsule TAKE 1 CAPSULE BY MOUTH [...] for a follow up seen at our [facility] 09/08/2021 s/p syncopal episode, Etiology ? Pt's [...] me that when he was living in [place] he tested positive for Syphilis and was treated. Back then he remembers the [facility] was involved. We contacted the [facility] and they were going to try [...] repair on 02/14/[address] Geiger at [facility] Patient with c/o recurrent left inguinal pain after doing exercise On exam the left inguinal area is protuberant Plan: Refer back to Dr. Geiger Assessment & Plan (03/12/2022 5:23 PM EST): S/p repair on 02/14/[address] Geiger at [facility] Complex renal cyst 12/23/2021 Assessment & Plan [...] future f/u with PCP - Graduated from [facility] program Monitoring: Potassium (mmol/L) Date Value 03/09/2023 [...] Hospitalization and he was sent home on [facility] Pt evaluated by Hematology, last seen [...] Encounters Date Type Department Care Team Description 10/20/2024 10:40 AM EDT Office Visit [facility] [address] [place] [address] Dg Garibay MD Essential hypertension (Primary Dx); Left lower quadrant abdominal mass 10/20/2024 Travel 10/16/2024 2:00 PM EDT Office Visit [facility] [address] [place] [phone] Mathew Oleary MD Essential hypertension (Primary Dx); Left inguinal hernia; Right lateral epicondylitis; Preventative health care; Pain 10/16/2024 Travel 10/15/2024 Telephone [facility] [address] [place] [address] Ayleen Aiken MA 08/18/2024 Telephone [facility] [address] [place] [address] Mathew Oleary MD Referral 08/17/2024 Refill [facility] [address] [place] [address] Mathew Oleary MD Viral upper respiratory tract infection 08/10/2024 Refill [facility] [address] [place] [phone] Josiah Ramon MD Essential hypertension 07/23/2024 Refill [facility] [address] [place] [address] Mathew Oleary MD Essential hypertension 07/22/2024 1:15 PM EDT Office Visit [facility] [address] [place] [address] Mathew Oleary MD Essential hypertension (Primary Dx); Preventative health care 07/22/2024 Travel 07/21/2024 Telephone [facility] [address] [place] [address] Mathew Oleary MD chartprep from Last 3 [...] oz) 10/20/2024 10:49 A M EDT Height 188 cm (6' 2 ) 10/16/2024 1:44 PM EDT Body Mass Index 29.35 10/16/2024 1:44 PM EDT Plan of Treatment [...] 03/11/2025 03/11/2024 Alcohol/Substance Use Screening 03/27/2025 03/27/2024 Depression Screening 10/16/2025 10/16/2024, 10/17/19 25 Tobacco Screening 10/20/2025 10/20/2024 Colonoscopy 06/19/2029 Colorectal Cancer Screening 06/19/2029 Lipid [...] 10:49 AM EDT) No Sarah Bhandari, PharmD Procedures Procedure Name Priority Date/Time Associated Diagnosis Comments LACTIC ACID LAB USE ONLY Routine 10/20/2024 3:58 PM EDT LACTIC ACID Routine 10/20/2024 1:23 PM EDT COMPREHENSIVE METABOLIC PANEL Routine 10/20/2024 1:23 PM EDT CBC WITH AUTO DIFFERENTIAL Routine 10/20/2024 1:23 PM EDT XR ELBOW 3+ VIEWS RIGHT Routine 10/16/2024 3:06 PM EDT Right lateral epicondylitis COMPREHENSIVE METABOLIC PANEL Routine 07/22/2024 2:03 PM EDT Essential hypertension LIPID PANEL, STANDARD Routine 07/22/2024 2:03 PM EDT Essential hypertension PSA, SCREEN Routine 07/22/2024 2:03 PM EDT Preventative health care from Last 3 Months Results * Lactic Acid (10/20/2024 3:58 PM EDT) Lactic Acid 1.4 0.5 - 2.0 mmol/L [facility] 10/20/2024 3:58 PM EDT 10/20/2024 4:01 PM EDT us Generic External Data Provider LAB BLOOD ORDERAB LES Final Result [facility] [address] [place] [phone] * CBC auto differential (10/20/2024 1:23 PM EDT) White Blood Count 5.4 4.8 - 10.8 X10*3/uL [facility] Red Blood Count 4.84 4.60 - 5.80 X10*6/uL [facility] Hemoglobin 14.6 14.0 - 18.0 g/dl [facility] Hematocrit 42.9 42.0 - 52.0 % [facility] Mean Corpuscular Volume 88.6 80.0 - 98.0 fL [facility] Mean Corpuscular Hemoglobin 30.2 27.0 - 33.0 pg [facility] Mean Corpuscular HGB Conc 34.0 31.0 - 36.0 g/dl [facility] Red Cell Distribution Width 13.0 11.0 - 16.0 % [facility] Platelet Count 194 160 - 400 X10*3/uL [facility] Mean Platelet Volume 10.3 9.4 - 12.4 fL [facility] Neutrophils Percent Auto 52.4 45 - 73 % [facility] Imm Gran Pct Auto 0.2 0.0 - 0.4 % [facility] Lymphocytes Percent Auto 38.1 20 - 40 % [facility] Monocytes Percent Auto 6.7 2 - 11 % [facility] Eosinophils Percent Auto 1.5 0 - 4 % [facility] Basophils Percent Auto 1.1 0 - 2 % [facility] NRBC Pct Auto 0.0 0.0 - 0.2 /100WBC [facility] Neutrophils Absolute Auto 2.8 2.0 - 8.3 x10*3/uL [facility] Imm Gran Abs Auto 0.01 0.00 - 0.03 X10*3/uL [facility] Lymphocytes Absolute Auto 2.1 1.2 - 4.9 X10*3/uL [facility] Monocytes Absolute Auto 0.4 0.1 - 1.2 X10*3/uL [facility] Eosinophils Absolute Auto 0.1 0.0 - 0.4 X10*3/uL [facility] Basophils Absolute Auto 0.1 0.0 - 0.2 X10*3/uL [facility] NRBC Abs Auto 0.000 0.0 - 0.012 X10*3/uL [facility] 10/20/2024 1:23 PM EDT 10/20/2024 1:27 PM EDT Generic External Data Provider LAB BLOOD ORDERAB LES Final Result Performing Organization Address City/[facility] Co de Phone Number [facility] [address] [place] [phone] * (ABNORMAL) Lactic Acid (10/20/2024 1:23 PM EDT) [facility] Lactic Acid 2.7(HH) 0.5 - 2.0 mmol/L [facility] Comment:Critical value for L ACTIC: Results called to and read grace: CARMEN Person calling: ANNA Date: 10/20/24 Time: 1349 10/20/2024 1:23 PM EDT 10/20/2024 1:27 PM EDT Generic External Data Provider LAB BLOOD ORDERAB LES Final Result Performing Organization Address [facility] Co de Phone Number [facility] [address] [place] [phone] * (ABNORMAL) Comprehensive Metabolic Panel (10/20/2024 1:23 PM EDT) Only the most recent of2 resultswithin the time period is included. [facility] Sodium 143 135 - 145 mmol/L [facility] Potassium 3.7 3.3 - 5.1 mmol/L [facility] Chloride 110(H) 96 - 108 mmol/L [facility] Carbon Dioxide 24 22 - 29 mmol/L [facility] Anion Gap 13 12 - 20 [facility] Urea Nitrogen (BUN) 17(H) 9 - 16 mg/dL [facility] Creatinine, Serum 0.91 0.5 - 1.4 mg/dL [facility] Creatinine Clr Calc Pharmacy 81.6 [facility] Comment:eGFR (calculated fro m the MDRD study equation) and eCrCl(calculated from the Cockcroft-Gault equation) are based ondifferent parameters and may not yield comparable results.If eCrCl result is absurd, please check patient'sheight/weight. Estimated Glomerular Filt Rate >60 [facility] Comment:Chronic Kidney Disea se: Estimated GFR < 60 mL/min/1.69r5Sliacu Kidney Disease: Estimated GFR < 15 mL/min/1.73m2 Glucose 114 60 - 115 mg/dL [facility] Calcium 8.9 8.4 - 10.2 mg/dL [facility] Bilirubin, Total 0.7 0.0 - 1.0 mg/dL [facility] Aspartate Amino Transferase 28 5 - 37 U/L [facility] Alanine Aminotransferase 14 0 - 40 U/L [facility] Total Protein 6.8 6.5 - 8.0 g/dL [facility] Albumin Level 3.9 3.5 - 5.0 g/dL [facility] Alkaline Phosphatase 70 39 - 117 U/L [facility] 10/20/2024 1:23 PM EDT 10/20/2024 1:27 PM EDT us Generic External Data Provider LAB BLOOD ORDERAB LES Final Result Performing Organization Address City/State/[facility] Co de Phone Number [facility] [address] [place] [phone] * XR Elbow 3+ Views Right (10/16/2024 3:06 PM EDT) Anatomical Region Laterality Modality Upper Extremities, Elbow Right Radiogr aphic Imaging 10/16/2024 3:06 PM EDT Narrative 10/16/2024 3:19 PM EDT [address] [address] XRay Report Signed Patient: Edgar Kruse MR#: [id number] : 1940 Acct:[id number] Age/Sex: 83 / M ADM Date: 10/16/24 Loc: HO.CHENX Attending Dr: Mathew Quarles MD Ordering Physician: Mathew Quarles MD Date of Service: 10/16/24 Procedure(s): XR elbow RT min 3V Accession Number(s): [id number] cc: Mathew Quarles MD Reason for Exam: [...] 10/16/24 1516 DD/ 1506 TD/TT: 10/16/24 1507 Radio Maintainer: Procedure Note Donmargieter, Image - 10/16/[address] [address] XRay Report Signed Patient: Triny Kruse#: [id number] : 1940cct:[id number] Age/Sex: 83 / MADM Date: 10/16/24 Loc: HO.HHX Attending Dr: Mathew Quarles MD Ordering Physician: Mathew Quarles MD Date of Service: 10/16/24 Procedure(s): XR elbow RT min 3V Accession Number(s): [id number] cc: Mathew Quarles MD Reason for Exam: [...] 10/16/24 1516 DD/ 1506 TD/TT: 10/16/24 1507 Radio Maintainer: Mathew Lynch MD IMG XR PROCEDURES Fin al Result * PSA, Screen (07/22/2024 2:03 PM EDT) Pathologist [facility] PSA, Total 2.93 <0.05 - 4.0 ng/mL [facility] Comment:PSA methodology: Reed Muniz i ChemiluminescentMicroparticle Immunoassay (CMIA) Blood Venous blood specimen / Unknown 07/22/2024 2:03 PM EDT 07/22/2024 4:08 PM EDT Mathew Lynch MD LAB BLOOD ORDERABLES Final Result [facility] [address] [place] [phone] * (ABNORMAL) Lipid Panel, Standard (07/22/2024 2:03 PM EDT) Triglycerides 157(H) <150 mg/dL [facility] Comment:Desirable Triglyceri de: less than 150 mg/dLBorderline High Triglyceride 150-199 mg/dLHigh Triglyceride: 200-499 mg/dLVery High Triglyceride: greater than or equal to 5OO mg/dL Cholesterol 171 <200 mg/dL [facility] Comment:Desirable Cholestero l: less than 200 mg/dLBorderline High Cholesterol: 200-239 mg/dLHigh Cholesterol: greater than 239 mg/dL LDL Cholesterol Calculated 100(H) <100 mg/dL [facility] Comment:Desirable LDL: less than 100 mg/dLNear Optimal/Above Optimal LDL: 110- 129 mg/dLBorderline High LDL: 130-159 mg/dLHigh LDL: 160-189 mg/dLVery High LDL: greater than or equal to 190 mg/dL HDL Cholesterol 40(L) >40 mg/dL [facility] Comment:Desirable HDL: great er than 40 mg/dL Note: This HDL assay may give artificially low results in patients with liver disease. Blood Venous blood specimen / Unknown 07/22/2024 2:03 PM EDT 07/22/2024 4:08 PM EDT us Mathew Lynch MD LAB BLOOD ORDERABLES Final Result [facility] [address] [place] [phone] from Last 3 Months Insurance MEDICARE [facility] STANDARD Care Teams Appliance Servicer Relationship Specialty Start Date End Date Mathew Oleary MD [address] [place] [address] [place] [address] PCP - General Internal Medicine 11/14/13
[2024-10-20] MEDS: iohexoL 350 MG/ML 100 ML INFUS..BTL IV (18:48)
[2024-10-20 19:55] VITALS: BP 142/80; PULSE 59; RESP 16; TEMP 36.4; O2SAT 97
--- NOTE | 2024-10-20 21:20 | P.CONHOSP_ITS ---
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 Pt was evaluated in the ED, found to have an incarcerated L inguinal hernia containing bladder via CT scan and was admitted by Dr. Bautista for surgery. Hospitalist requested consult for pre op clearance. Pt does report remote hx of tobacco use, marijuana use and alcohol use over 20 years prior. Pt offers that he has no hx of arrhythmia, AFIB, NE, or cardiac procedures to include PCI and denies hx of abnormal stress test. ECG notes Sinus Rhythm with First degree Block with noted prolonged UT of 288 and Bifasicular Block. Pt states he is following with a green end department supervisor in [place] and had an echo done 2 weeks ago. Pt denies any recent issues with chest pain, SOB at rest or with exertion. Pt reports hx of COPD, PNA and does not currently use Oxygen at home and only has a rescure inhaler. Pt follows regularly with GI for chronic issues telated to GERD, constipation and tubular adenoma. Pt has had surgeries in the past and has tolerated general anesthesia with intubation without complication. Pt presents with minimal pain in Left groin currently. Pt noted to have swelling in LLE> RLE and pt states this is chronic and he has had this same swelling for many years. Review of Systems 2 Review of Systems: Pt currently denies any chest pain, SOB at rest or with exertion, abdominal pain, N.V. Pt states he has some discomfort in left upper groin area. Pt denies any issues with urinating and reports chronic constipation without straining. Pt denies hx of CVA, SEizure, cancer. Yes all other systems are reviewed and are negative [facility] Medical History (Updated 10/20/24 @ 23:[address] [facility]) Syphilis contact, treated Constipation Transurethral resection of prostate (TURP) syndrome Left leg swelling Diverticulosis Tubular adenoma of colon Left groin pain Epidermal cyst COVID-19 vaccine series completed BPH (benign prostatic hyperplasia) GERD (gastroesophageal reflux disease) HTN (hypertension) Recurrent inguinal hernia Lower abdominal pain Cognitive capacity: A/O X3 Functional capacity: independent ambulation Family History (Reviewed 06/18/24 @ 14:38 by Aldair Cancino [facility]) Sister Breast cancer Surgical History (Updated 10/20/24 @ 23:17 [facility] H/O varicose vein stripping History of removal of cyst History of removal of cyst History of left inguinal hernia repair Hx of varicose vein ligation and stripping H/O colonoscopy History of hernia surgery Hx of cystoscopy Hx of transurethral resection of prostate History of hernia surgery Social History (Reviewed 06/18/24 @ 14:38 by Aldair Cancino [facility]) Household Members: Spouse Housing: House Are you a primary home visit field care manager to a significant other at home: No Do you presently have visiting nurse or other home services: No Alcohol intake: never Patient Tobacco Use Status: Never used Tobacco Smoked in Last 30 Days: No Use of substances other than those prescribed or required for medical reasons: No Advance Directives: No Advance Directives Information Provided: No service: No Current occupational status: retired Ebola Risk: Travel/Contact With Anyone From Affected Area/s: No Has Patient Experienced Ebola Symptoms: No Meds Allergies Allergy/AdvReac Type Severity Reaction Status Date / Time No Known Allergies (No Known Allergy Verified 10/20/24 12:36 Allergies*) Active Medications: Current Medications Heparin Sodium (Porcine) (Heparin Sodium,Porcine 5,000 Unit/Ml Vial) 5,000 unit SUBCUT Q12H GABRIEL Hydromorphone HCl (Hydromorphone Hcl 0.5 Mg/0.5 Ml Syringe) 0.5 mg IVPUSH Q3H PRN; Protocol PRN Reason: Pain, Severe (Pain Scale 7-10) Dextrose/Lactated Ringer's (D5lr) 1,000 mls @ 125 mls/hr IVCONT .Q8H GABRIEL Ondansetron HCl (Ondansetron Hcl 4 Mg/2 Ml Vial) 4 mg IVPUSH QID PRN PRN Reason: Nausea Oxycodone HCl (Oxycodone Hcl Immed Release 5 Mg Tablet) 5 mg PO Q6H PRN PRN Reason: Pain, Moderate(Pain Scale 4-6) Sodium Chloride (0.9 % Sodium Chloride Flush 3 Ml Syringe) 3 [facility] Medications ?Medication ?Instructions ?Recorded ?Confirmed ?Last Taken ?Type fluticasone propionate 50 2 spray intranasal DAILY PRN 07/08/20 10/20/24 Unknown History mcg/actuation nasal Allergy Symptoms spray,suspension lisinopril 40 mg tablet 40 mg PO DAILY 07/08/2010/0610/20/24 History metoprolol succinate 100 mg 100 mg PO DAILY 07/08/20 0 10/20/24 10/20/24 History tablet,extended release 24 hr metoprolol succinate 25 mg 25 mg PO DAILY 02/22/2110/20/24 History tablet,extended release 24 hr multivitamin 1 tab PO DAILY 08/19/2110/0610/20/24 History aspirin 81 mg tablet,delayed 81 mg PO DAILY 11/14/23 0 10/20/24 10/20/24 History release ibuprofen 600 mg tablet 600 mg PO Q8H PRN pain 10/2010/20/24 Unknown History Physical Exam 2 Vital Signs and Narrative: Vital Signs: Last Vital Signs Temp 97.6 F 10/20/24 19:55 Pulse 59 10/20/24 19:55 Resp 16 10/20/24 19:55 BP 142/80 H 10/20/24 19:55 Pulse Ox 97 10/20/24 19:55 O2 Del Method Room Air 10/20/24 19:55 BMI result Body Mass Index 29.3 Alert and orientated X3, able to give good history. Nigerian speaking Neuro: CN II-X11 intact EYES: PERRLA, EOM intact, sclerae nonicteric, conjunctiva pink ENT: hearing intact, no issues with swallowing, uvula midline, lips moist, nares patent no epistaxis Cardiac: S1 S2 RRR, no murmur, no JVD, moderate edema in left Lower ext, compared to mild in RLE Pulmonary: lungs CTA B Abdominal: BS active in all 4 quadrants, no guarding, no tenderness, no rebound Left groin hernia with mild distension, tender with palpation MSK: strength 5/5 upper and lower ext : no CVA tenderness no bladder distension Extremities: moderate edema in left lower extremities, mild edema RLE, pulses LLE via doppler only, homans positive LLE Psych: mood calm, judgement and insight good Skin: intact no new rashes or lesions Results Labs 10/20/24 13:23 10/20/24 13:23 Labs: Laboratory Results - last 24 hr 10/20/24 10/20/24 13:23 15:58 MCV 88.6 MCH 30.2 MCHC 34.0 RDW 13.0 Plt Count 194 MPV 10.3 Immature Gran % (Auto) 0.2 Neut % (Auto) 52.4 Lymph % (Auto) 38.1 [place] % (Auto) 6.7 Eos % (Auto) 1.5 Baso % (Auto) 1.1 Lymph # (Auto) 2.1 [place] # (Auto) 0.4 Eos # (Auto) 0.1 Baso # (Auto) 0.1 Abs Immat Gran (auto) 0.01 Absolute Neuts (auto) 2.8 Absolute Nucleated RBC 0.000 Nucleated RBC % (auto) 0.0 Anion Gap 13 Estim Creat Clear Calc 81.6 Estimated GFR > 60 Random Glucose 114 Lactic Acid 2.7 H* Lactic Acid F/U @ 2Hr 1.4 Calcium 8.9 Total Bilirubin 0.7 AST 28 ALT 14 Alkaline Phosphatase 70 Total Protein 6.8 Albumin 3.9 ECG Attestation: I personally reviewed and interpreted this ECG as follows: (First degree AVB UT 288, Bifasicular Block ) Prior ECG tracings: available for review Imaging Radiologist's Impressions: CT ABD PELVIS Impression: Left inguinal hernia contains portion of bladder Inflammatory stranding around this concerning for incarceration Assessment and Plan (1) Incarcerated left inguinal hernia: Status: Acute (2) First degree atrioventricular block: Status: Acute (3) Bifascicular block: Status: Acute (4) Left leg swelling: Status: Acute Plan Pt is an 83 yo male Nigerian speaking, 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 Pt was evaluated in the ED, found to have an incarcerated L inguinal hernia containing bladder via CT scan and was admitted by Dr. Bautista for surgery. Hospitalist requested consult for pre op clearance. Pt does report remote hx of tobacco use, marijuana use and alcohol use over 20 years prior. Incarcerated L inguinal Hernia Management per surgery Pt currently resting comfortably First Degree AVB with prolonged UT 288, Bifasicular Block and prolonged QtC 472 Pt recently seen by green end department supervisor in [place] (pt not sure of affiliation of green end department supervisor) Echo completed approximately 2 weeks prior not at [facility], no record of echo here Pt currently symptom free. Telemetry Cardiology consult for clearance, risk for ck and post operative complications noting cardiac findings above Echo ordered TSH, MG added, results pending BNP in AM Left Leg swelling chronic vs Acute/ HX of PE Venous Doppler ordered to rule out blood clot Pt no longer on eliquis, cleared by hematology, no evidence of hypercoagulable state Known hx of varicose vein stripping in Left leg and PVD Pulses obtain by doppler LLE COPD Pt has been stable and asymptomatic Pt does not use O2 or daily inhalers at home Pt has been intubated in the past without complication post extubation HX of Syphilis Recent testing 2022 notes no new active disease Pt diagnosed in his 20's and did receive tx No evidence of AMS, active tertiary disease Unable to officially cleat pt at this time for surgery for Left hernia incarceration. Recommend pt receive cardiology clearance noting pt's age, length of UT interval and prolonged Qtc with bifasicular block and recent visit with green end department supervisor in [place]. Echo pending. Also need to rule out blood clot in LLE. Doppler ordered and results pending. Hospitalist group will continue to follow. Thank you for allowing us to participate in the care of this patient.
[2024-10-20] MEDS: Dextrose 5 % and Lactated Ring 1,000 ML 125 ML IVCONT (21:26)
--- NOTE | 2024-10-20 22:44 | PHA.MEDREC ---
Pharmacy Consult ? Medication Reconciliation Pharmacy has completed the medication reconciliation. Spoke to patient to confirm medication list. Patient confirmed he takes metoprolol er 100 mg + er 25 mg daily. Last dose of medications was today 10/20/24 at midday.
[2024-10-21] VITALS (8 sets, daily range): BP systolic 161–184; BP diastolic 80–102; PULSE 53–98; RESP 16–18; TEMP 36–36.9; O2SAT 94–98; BMI 28.9
[2024-10-21 00:04] LABS: Magnesium 2.1 mg/dL (1.6-2.6)
[2024-10-21 00:19] LABS: Thyroid Stimulating Hormone 0.99 uIU/mL (0.32-4.0)
[2024-10-21] MEDS: 0.9 % Sodium Chloride Flush 3 ML SYRINGE IVFLUSH (01:15)
[2024-10-21] MEDS: Dextrose 5 % and Lactated Ring 1,000 ML 125 ML IVCONT (04:28)
[2024-10-21 05:31] LABS: NT Pro B Type Natriuretic Pept 201.9 pg/mL (<300)
--- NOTE | 2024-10-21 05:44 | PC.NURSE ---
Report given to Same day Sx RN,
--- NOTE | 2024-10-21 07:00 | CA_ITS ---
Transthoracic Echocardiogram Patient (Last, First, Middle): Edgar Kruse, Gender: Male Date of : 1940 Age: 83 Procedure Date: 10/21/2024 Procedure Type: Transthoracic Echocardiogram Location: S3E Height: 187.96 cm Weight: 104.33 kg BSA: 2.31 m2 Heart Rate: bpm BP: 184 / 102 mmHg [place] Operator Surface: SHEA Referring MD: Tabitha Flor MOVIE EDITOR-BC Symptoms: abn ecg pre op clearance Study Quality: Adequate with contrast ECG Rhythm: Sinus Conclusions: - The left ventricular systolic function is normal. The calculated ejection fraction is 69% by biplane method. - No obvious valvular pathology seen on this study. - There is mild dilatation of the ascending aorta measuring 4.20 cm. Findings Procedure Information Contrast agent, definity, is being given per protocol without apparent complications. Left Ventricle Normal left ventricular cavity size. There is mildly increased left ventricular wall thickness. The left ventricular systolic function is normal. The calculated ejection fraction is 69% by biplane method. There is no evidence of regional wall motion abnormalities. Diastolic function is normal for age. Right Ventricle Mildly increased right ventricular cavity size. There is normal right ventricular systolic function. Atria The left atrium is mildly dilated. The right atrium is normal in size. Aortic Valve There is a normal trileaflet aortic valve. There is no aortic valve stenosis. Trace to mild aortic regurgitation. Mitral Valve The mitral valve appears normal. There is trace mitral valve regurgitation. There is no mitral valve stenosis. Pulmonic Valve The pulmonic valve is likely normal. Tricuspid Valve There is trace tricuspid valve regurgitation. There is no evidence of pulmonary hypertension. Great Vessels There is mild dilatation of the ascending aorta measuring 4.20 cm. Small plaque is seen in the sinuses of Valsalva. Venous The inferior vena cava is dilated and collapses greater than 50% with inspiration. Pericardium/Pleural There is no evidence of pericardial effusion. Prior Study Comparison No prior study available for comparison. Recommendations, Care & Conclusions No obvious valvular pathology seen on this study. Measurements 2D Linear Measurements IVSd: 1.14 0.6-0.9/0.6-1.0 cm LVIDd: 4.95 3.9-5.3/4.2-5.9 cm LVIDd Index: 2.14 2.4-3.2/2.2-3.1 cm/m2 LVIDs: 2.81 2.0-3.6 cm LVPWd: 1.00 0.7-1.1 cm LA Diam: 4.00 2.7-3.8/3.0-4.0 cm LAIDs Index: 1.73 1.5-2.3 cm/m2 LV Mass: 244.52 67-162/88-224 g LV Mass Index: 105.85 43-95/49-115 g/m2 LVOT Diam: 2.00 3.0+(-)1.3 cm 2D Systolic Function EF 4C: 68.50 >55% EF 2C: 63.90 >55% EF BiP: 68.50 >55% Mitral Valve MV Pk E: 0.63 MV PK A: 0.65 MV Decel Time: 287.00 E/A: 1.00 E'Lateral: 5.98 E'Medial: 5.66 E/E' Med: 11.20 E/E' Lat: 10.60 PHT: 84.00 MVA PHT: 2.62 Decel Cooper: 2.21 Aortic Valve AoV Pk Diego: 1.31 AoV Mn Diego: 0.92 AoV VTI: 0.32 AoV Pk Grad: 7.00 Aov Mn Grad: 4.00 TASHA Cont.VTI: 2.69 AI Pk Diego: 3.14 AI Cooper: 1.38 LVOT LVOT Pk Diego: 1.25 LVOT Mn Diego: 0.77 LVOT VTI: 0.28 LVOT Pk Grad: 6.00 LVOT Mn Grad: 3.00 LVOT Diam: 2.00 LVOT Area: 3.14 Diastolic Function MV Pk E: 0.63 MV Pk A: 0.65 E/A: 1.00 E'Medial: 5.66 E/E' Med: 11.20 E' Laterial: 5.98 E/E' Lat: 10.60 Right Ventricle TAPSE (mm): 23.00 TVS' Diego: 11.10 Tricuspid Valve TR Pk Diego: 2.06 TR Pk Grad: 17.00 RA Press: 8.00 RVSP: 25.00 Great Vessels Aorta Sinus of Valsalva: 3.50 2.0-3.5 cm Ao Asc: 4.20 2.1-3.4 cm Pulmonary Veins Pulm Vein S/D 1.10 Pulmonary Valve PV Pk Diego: 0.92 Peak PV Grad: 3.00 Updated in Other Vendor System with Status of Final Daniel Manriquez MD electronically signed on 10/21/2024 10:52:31 AM with status of Final
--- NOTE | 2024-10-21 08:12 | PM.HPGS ---
History of Present Illness History of Present Illness Date of Service: 10/21/24 <Rosario Herron PA-C - Last Filed: 10/21/24 09:49> 10/22/24 <Nayan Geiger MD - Last Filed: 10/22/24 16:20> Chief complaint: Incarcerated left inguinal hernia, recurrent <Rosario Herron PA-C - Last Filed: 10/21/24 09:49> Narrative: Edgar Kruse is a 83 year old male with PMH significant for HTN, COPD, PNA, GERD, PVD, BPH, hx of b/l PE who presented to the ED with complaints of left groin pain. He has a known left inguinal hernia. He underwent repair of a recurrent left inguinal hernia with Prolene plug in [address] Geiger. This was technically challenging as he had significant, thick dense fibrosis in the area due to his multiple prior repairs. He reports some persistent pain at the repair site since the surgery however the pain began to worsen about 6 weeks ago and became severe on Sunday. He reports some vomiting when the pain was severe. He tried to wait it out to see if he could be seen in the general surgery office however his PCP said they could not give him a referral and he went to urgent care who sent him to the ED. Work up was significant for CBC, BMP, LFTs which were WNL however lactic acid of 2.[address] scan was performed which showed left inguinal hernia containing small amount of the bladder wall. He was therefore admitted to the surgical service for the recurrent left inguinal hernia. He reports resolution of the left groin pain. He denies any further nausea, vomiting, fevers, chills. He is passing flatus and his last BM was Sunday. He does report some difficulty with urinating and has to push hard to initiate. He also endorses nocturia. He had previously been seen by urology and underwent laser prostate in early 2018 and has been off meds. He has been voiding without difficulty this morning. He denies past abdominal surgeries except for the multiple left inguinal hernia repairs and right inguinal hernia repair. <Rosario Herron PA-C - Last Filed: 10/21/24 09:49> Review of Systems Constitutional: Constitutional: Denies chills and Denies fever(s) <Rosario Herron PA-C Last Filed: 10/21/24 09:49> ENT: Denies dizziness <Rosario Herron PA-C Last Filed: 10/21/24 09:49> Cardiovascular: Cardiovascular: Denies chest pain, Denies dyspnea and Denies dyspnea on exertion <Rosario Herron PA-C Last Filed: 10/21/24 09:49> Respiratory: Respiratory: Denies dyspnea and Denies dyspnea on exertion <Rosario Herron PA-C Last Filed: 10/21/24 09:49> Gastrointestinal: Gastrointestinal: Reports as per HPI <Rosario Herron PA-C Last Filed: 10/21/24 09:49> Genitourinary: Genitourinary: Reports as per HPI and Denies dysuria <Rosario Herron PA-C Last Filed: 10/21/24 09:49> Musculoskeletal: Musculoskeletal: Denies numbness <Rosario Herron PA-C Last Filed: 10/21/24 09:49> Integumentary/Breasts: Skin/Breast: Denies rash and Denies jaundice <Rosario Herron PA-C Last Filed: 10/21/24 09:49> Neurologic: Denies dizziness and Denies numbness <Rosario Herron PA-C Last Filed: 10/21/24 09:49> PMFSH Past Medical History Medical History: Medical History (Updated 10/21/24 @ 14:28 by Anthony Stephen DO) Syphilis contact, treated Constipation Transurethral resection of prostate (TURP) syndrome Left leg swelling Diverticulosis Tubular adenoma of colon Left groin pain Epidermal cyst COVID-19 vaccine series completed BPH (benign prostatic hyperplasia) GERD (gastroesophageal reflux disease) HTN (hypertension) Recurrent inguinal hernia Lower abdominal pain <Rosario Herron PA-C Last Filed: 10/21/24 09:49> Family History Family History: Family History Sister Breast cancer <Rosario Herron PA-C Last Filed: 10/21/24 09:49> Surgical History Surgical History: Surgical History (Updated 10/20/24 @ 23:17 by Tabitha Ray, [facility]) H/O varicose vein stripping History of removal of cyst History of removal of cyst History of left inguinal hernia repair Hx of varicose vein ligation and stripping H/O colonoscopy History of hernia surgery Hx of cystoscopy Hx of transurethral resection of prostate History of hernia surgery <Rosario Herron PA-C - Last Filed: 10/21/24 09:49> Social History Social History: Social History Household Members: Spouse Housing: House Are you a primary care professional to a significant other at home: No Do you presently have visiting nurse or other home services: No Alcohol intake: never Patient Tobacco Use Status: Never used Tobacco service: No Current occupational status: retired <Rosario Herron PA-C - Last Filed: 10/21/24 09:49> Travel History Ebola Risk: Travel/Contact With Anyone From Affected Area/s: No <Rosario Herron PA-C - Last Filed: 10/21/24 09:49> Has Patient Experienced Ebola Symptoms: No <Rosario Herron PA-C - Last Filed: 10/21/24 09:49> Meds Allergies/Adverse reactions: Allergies Allergy/AdvReac Type Severity Reaction Status Date / Time No Known Allergies (No Known Allergy Verified 10/20/24 12:36 Allergies*) <Rosario Herron PA-C - Last Filed: 10/21/24 09:49> Active Medications: Current Medications Heparin Sodium (Porcine) (Heparin Sodium,Porcine 5,000 Unit/Ml Vial) 5,000 unit SUBCUT Q12H [facility] Last Admin: 10/20/24 21:28 Dose: 5,000 unit Hydromorphone HCl (Hydromorphone Hcl 0.5 Mg/0.5 Ml Syringe) 0.5 mg IVPUSH Q3H PRN; Protocol PRN Reason: Pain, Severe (Pain Scale 7-10) Dextrose/Lactated Ringer's (D5lr) 1,000 mls @ 125 mls/hr IVCONT .Q8H [facility] Last Admin: 10/21/24 04:28 Dose: 125 mls/hr Ondansetron HCl (Ondansetron Hcl 4 Mg/2 Ml Vial) 4 mg IVPUSH QID PRN PRN Reason: Nausea Oxycodone HCl (Oxycodone Hcl Immed Release 5 Mg Tablet) 5 mg PO Q6H PRN PRN Reason: Pain, Moderate(Pain Scale 4-6) Sodium Chloride (0.9 % Sodium Chloride Flush 3 Ml Syringe) [facility] Last Admin: 10/21/24 01:15 Dose: 3 ml <LISSET Cates Last Filed: 10/21/24 09:49> Home medications: Home Medications ?Medication ?Instructions ?Recorded ?Confirmed ?Last Taken ?Type fluticasone propionate 50 2 spray intranasal DAILY PRN 07/08/20 10/20/24 Unknown History mcg/actuation nasal Allergy Symptoms spray,suspension lisinopril 40 mg tablet 40 mg PO DAILY 07/08/20 10/20/24 10/20/24 History metoprolol succinate 100 mg 100 mg PO DAILY 07/08/20 10/20/24 10/20/24 History tablet,extended release 24 hr metoprolol succinate 25 mg 25 mg PO DAILY 02/22/21 10/20/24 10/20/24 History tablet,extended release 24 hr multivitamin 1 tab PO DAILY 08/19/21 10/20/24 10/20/24 History aspirin 81 mg tablet,delayed 81 mg PO DAILY 11/14/23 10/20/24 10/20/24 History release ibuprofen 600 mg tablet 600 mg PO Q8H PRN pain 10/20/24 10/20/24 Unknown History <LISSET Cates Last Filed: 10/21/24 09:49> Physical Exam Vital Signs: Vital Signs: Last Vital Signs Temp 97.8 F 10/21/24 06:01 Pulse 97 10/21/24 06:01 Resp 16 10/21/24 06:01 BP 184/102 H 10/21/24 06:01 Pulse Ox 98 10/21/24 06:01 O2 Del Method Room Air 10/21/24 06:01 BMI result Body Mass Index 29.3 <LISSET Cates Last Filed: 10/21/24 09:49> Const: General: comfortable, no acute distress and alert <Rosario Herron LISSET Coffey Last Filed: 10/21/24 09:49> Resp: Effort & Inspection: normal respiratory effort <LISSET Cates Last Filed: 10/21/24 09:49> Cardio: Rate: regular rate <LISSET Cates Last Filed: 10/21/24 09:49> GI: Other: mild left inguinal tenderness hernia palable and reducible, partially no overlying skin changes <LISSET Cates Last Filed: 10/21/24 09:49> Inspection: Yes distended and Yes scar (left and right groin ) <Rosario Herron LISSET Coffey Last Filed: 10/21/24 09:49> Palpation (GI): Soft to palpation <Rosario Herron LISSET Coffey Last Filed: 10/21/24 09:49> Percussion: Yes normal to percussion <Rosario Herron LISSET Coffey Last Filed: 10/21/24 09:49> Skin: General skin exam: no rashes or lesions noted <LISSET Cates Last Filed: 10/21/24 09:49> Results Results Labs: Short CBC 10/20/24 Range/Units 13:23 WBC 5.4 (4.8-10.8) X10*3/uL Hgb 14.6 (14.0-18.0) g/dl Hct 42.9 (42.0-52.0) % Plt Count 194 (160-400) X10*3/uL BMP 10/20/24 13:23 Sodium 143 Potassium 3.7 Chloride 110 H Carbon Dioxide 24 BUN 17 H Creatinine 0.91 Calcium 8.9 Liver Function 10/20/24 Range/Units 13:23 Total Bilirubin 0.7 (0.0-1.0) mg/dL AST 28 (5-37) U/L ALT 14 (0-40) U/L Alkaline Phosphatase 70 (39-117) U/L Albumin 3.9 (3.5-5.0) g/dL <Rosario Evansdeau LISSET Coffey Last Filed: 10/21/24 09:49> Abdomen CT scan report/results: report reviewed and image reviewed <Rosario Herron PA-C - Last Filed: 10/21/24 09:49> Additional studies: labs reviewed <Rosario Herron PA-C - Last Filed: 10/21/24 09:49> Assessment and Plan (1) Recurrent left inguinal hernia: Status: Acute <Rosario Herron PA-C - Last Filed: 10/21/24 09:49> The patient is well known to me Multiple repairs of the left hernia for the past 25 years He has another recurrence This does not contain bowel loop Part of the bladder appears to be within the hernia He says he has had chronic pain Currently, pain has resolved Explained the option of proceeding with repair again but with high likelihood recurrence Option of referral to a hernia specialist also explained to the patient for a different approach surgery We will re-evaluate Seen and examined independently <Nayan Geiger MD - Last Filed: 10/22/24 16:20> Edgar Kruse is a 83 year old male with PMH significant for HTN, COPD, PNA, GERD, PVD, BPH, hx of b/l PE presenting with left groin pain found to have left inguinal hernia containing small amount of bladder wall. Patient has had multiple prior hernia repairs. His prostate is also very enlarged on CT scan. He is currently on no prostate meds. Will consult urology as BPH and difficulty urinating likely contributing to hernia. Start finasteride. WE discussed proceeding with repair of the recurrent left inguinal hernia given his worsening pain. This will be very technically difficult in view of his multiple previous repairs and therefore recurrence or even failure of repair is possible. He understands. He has been added onto the OR schedule tenatively for today. Hospitalist service has been consulted for medical management who have consulted cardiology for clearance. EKG shows sinus rhythm with first degree Block with noted prolonged NE of 288 and Bifasicular Block, echo was ordered. Await input. <Rosario Herron PA-C - Last Filed: 10/21/24 09:49> Quality Stroke Does the patient have a stroke diagnosis?: No <Rosario Herron PA-C - Last Filed: 10/21/24 09:49> VTE Prior VTE?: No <Rosario Herron PA-C - Last Filed: 10/21/24 09:49> VTE Risk Level:: Surgical - high <Rosario Herron PA-C - Last Filed: 10/21/24 09:49> VTE Device Contraindication: N/A - Device Ordered <Rosario Herron PA-C - Last Filed: 10/21/24 09:49> VTE Drug Contraindication: N/A - Med Ordered <Rosario Herron PA-C - Last Filed: 10/21/24 09:49> Procedures Date of Service Date of Service: 10/21/24 <Rosario Herron PA-C - Last Filed: 10/21/24 09:49> 10/22/24 <Nayan Geiger MD - Last Filed: 10/22/24 16:20>
--- NOTE | 2024-10-21 08:39 | MHC.CM.PN ---
PT REPORTS HE LIVES WITH HIS AND IS INDEPENDENT WITH CARE PT HAS NO DME OR SERVICES DECLINES A HCP PCP: [facility] DELIVERED DCP: HOME VIA PRIVATE TRANSPORT
--- NOTE | 2024-10-21 09:04 | HO.ANESPROP2 ---
HPI - Anesthesia Eval Consult details Narrative: 83 yr old male for repair of incarcerated hernia BP significantly elevated in ED: reports taking his THAD, betablocker every day as prescribed with exception of today, pain likely contributor to elevated BP Denies recent illness No CP/SOB with moderate activity, including stair climbing H/O PE: not on anti-coagulation, on ASA; LE US negative for DVT [facility]s with [facility], echo done 10/09/24 for h/o HTN, peripheral vascular disease, overall unremarkable, see details below. *[facility] [place] Cards consulted in ED 10/21/24 stating no clear contraindications to proceeding with surgery, bedside echo pending. MICHELL: not using CPAP PMFSH Active Problems Active Problems: All Active Problems Recurrent left inguinal hernia (Acute) Incarcerated left inguinal hernia (Acute) Constipation (Acute) Left leg swelling (Acute) Bifascicular block (Acute) First degree atrioventricular block (Acute) Hernia, inguinal, left (Acute) Tubular adenoma of colon (Acute) Left groin pain (Acute) Bilateral pulmonary embolism (Acute) Complex renal cyst (Acute) Epididymal pain (Acute) Bilateral groin pain (Acute) BPH (benign prostatic hyperplasia) (Acute) Epidermal cyst (Acute) Recurrent inguinal hernia (Acute) Lower abdominal pain (Acute) Past Medical History Medical History (Updated 10/21/24 @ 09:49 by Daniel Manriquez MD) Syphilis contact, treated Constipation Transurethral resection of prostate (TURP) syndrome Left leg swelling Diverticulosis Tubular adenoma of colon Left groin pain Epidermal cyst COVID-19 vaccine series completed BPH (benign prostatic hyperplasia) GERD (gastroesophageal reflux disease) HTN (hypertension) Recurrent inguinal hernia Lower abdominal pain Functional capacity: independent ambulation Family History Family History Sister Breast cancer Family history of problems with anesthesia: No Surgical History Surgical History (Updated 10/20/24 @ 23:17 by TANNER Rhodes-) H/O varicose vein stripping History of removal of cyst History of removal of cyst History of left inguinal hernia repair Hx of varicose vein ligation and stripping H/O colonoscopy History of hernia surgery Hx of cystoscopy Hx of transurethral resection of prostate History of hernia surgery History of Problems with Anesthesia: No Social History Social History Household Members: Spouse Housing: House Are you a primary assisted living care manager to a significant other at home: No Do you presently have visiting nurse or other home services: No Alcohol intake: never Patient Tobacco Use Status: Never used Tobacco service: No Current occupational status: retired Meds Allergies Allergy/AdvReac Type Severity Reaction Status Date / Time No Known Allergies (No Known Allergy Verified 10/20/24 12:36 Allergies*) Active Medications: Current Medications Finasteride (Finasteride 5 Mg Tablet) 5 mg PO DAILY [facility] Heparin Sodium (Porcine) (Heparin Sodium,Porcine 5,000 Unit/Ml Vial) 5,000 unit SUBCUT Q12H [facility] Last Admin: 10/20/24 21:28 Dose: 5,000 unit Hydromorphone HCl (Hydromorphone Hcl 0.5 Mg/0.5 Ml Syringe) 0.5 mg IVPUSH Q3H PRN; Protocol PRN Reason: Pain, Severe (Pain Scale 7-10) Dextrose/Lactated Ringer's (D5lr) 1,000 mls @ 125 mls/hr IVCONT .Q8H [facility] Last Admin: 10/21/24 04:28 Dose: 125 mls/hr Ondansetron HCl (Ondansetron Hcl 4 Mg/2 Ml Vial) 4 mg IVPUSH QID PRN PRN Reason: Nausea Oxycodone HCl (Oxycodone Hcl Immed Release 5 Mg Tablet) 5 mg PO Q6H PRN PRN Reason: Pain, Moderate(Pain Scale 4-6) Sodium Chloride (0.9 % Sodium Chloride Flush 3 Ml Syringe) 3 ml IVFLUSH QSHIFT [facility] Last Admin: 10/21/24 01:15 Dose: 3 ml Home Medications ?Medication ?Instructions ?Recorded ?Confirmed ?Last Taken ?Type fluticasone propionate 50 2 spray intranasal DAILY PRN 07/08/20 10/20/24 Unknown History mcg/actuation nasal Allergy Symptoms spray,suspension lisinopril 40 mg tablet 40 mg PO DAILY 07/08/20 10/20/24 10/20/24 History metoprolol succinate 100 mg 100 mg PO DAILY 07/08/20 10/20/24 10/20/24 History tablet,extended release 24 hr metoprolol succinate 25 mg 25 mg PO DAILY 02/22/21 10/20/24 10/20/24 History tablet,extended release 24 hr multivitamin 1 tab PO DAILY 08/19/21 10/20/24 10/20/24 History aspirin 81 mg tablet,delayed 81 mg PO DAILY 11/14/23 10/20/24 10/20/24 History release ibuprofen 600 mg tablet 600 mg PO Q8H PRN pain 10/20/24 10/20/24 Unknown History Exam Height,Weight and Vital Signs: Height 6 ft 2 in Weight 103.4 kg Last Vital Signs Temp 97.8 F 10/21/24 06:01 Pulse 97 10/21/24 06:01 Resp 16 10/21/24 06:01 BP 184/102 H 10/21/24 06:01 Pulse Ox 98 10/21/24 06:01 O2 Del Method Room Air 10/21/24 06:01 Pertinent Lab Results Pertinent Lab Results: Laboratory Tests 10/20/24 10/20/24 10/21/24 13:23 15:58 05:00 WBC 5.4 RBC 4.84 Hgb 14.6 Hct 42.9 MCV 88.6 MCH 30.2 MCHC 34.0 RDW 13.0 Plt Count 194 MPV 10.3 Immature Gran % (Auto) 0.2 Neut % (Auto) 52.4 Lymph % (Auto) 38.1 Beckham % (Auto) 6.7 Eos % (Auto) 1.5 Baso % (Auto) 1.1 Lymph # (Auto) 2.1 Beckham # (Auto) 0.4 Eos # (Auto) 0.1 Baso # (Auto) 0.1 Abs Immat Gran (auto) 0.01 Absolute Neuts (auto) 2.8 Absolute Nucleated RBC 0.000 Nucleated RBC % (auto) 0.0 Sodium 143 Potassium 3.7 Chloride 110 H Carbon Dioxide 24 Anion Gap 13 BUN 17 H Creatinine 0.91 Estim Creat Clear Calc 81.6 Estimated GFR > 60 Random Glucose 114 Lactic Acid 2.7 H* Lactic Acid F/U @ 2Hr 1.4 Calcium 8.9 Magnesium 2.1 Total Bilirubin 0.7 AST 28 ALT 14 Alkaline Phosphatase 70 NT-Pro-B Natriuret Pep 201.9 Total Protein 6.8 Albumin 3.9 TSH 0.99 Narrative Narrative: EKG 10/21/2024 (draft form) Vent. Rate : 61 BPM Atrial Rate : 61 BPM P-R Int : 288 ms QRS Dur : 152 ms QT Int : 468 ms P-R-T Axes : 43 -49 11 degrees QTcB Int : 471 ms Sinus rhythm with 1st degree A-V block Right bundle branch block Left anterior fascicular block Bifascicular block Abnormal ECG When compared with ECG of 09-Aug-2021 11:54, No significant change was found ECHO 10/09/24 Left ventricle size normal. Overall left ventricular systolic function is normal with EF between 65-70%. Normal diastolic function. Septal E/e ration is normal suggesting normal left atrial pressures Sigmoid shaped septum with focal hypertrophy of the basal septum. Remaining wall thickness is normal. No evidence of regional wall motion abnormalities. Left atril size is normal Right ventricle is moderately enlarged with preserved systolic function Mild aortic regurg; mild mitral regurg; mild tricuspid regurg No evidence of pulmonary HTN No pericardial effusion Ascending aorta is dilated, measure up to 40 mm Airway Mallampati Class: IV TM Dist: >3cm Neck ROM: Full Partial: Upper Assessment and Plan Final Anesthetic Review Family History of Problems with Anesthesia: No History of Problems with Anesthesia: No
[2024-10-21 09:12] LABS: Syphilis Screen Reactive (Nonreactive)
--- NOTE | 2024-10-21 09:45 | P.CONCA_ITS ---
History of Present Illness History of Present Illness Date of Service: 10/21/24 Chief complaint: Incarcerated left inguinal hernia, recurrent Narrative: This is a cardiology consultation regarding preoperative risk stratification for hernia surgery. Patient states he has seen someone in [facility] but I am not clear as to why. He also underwent echocardiogram recently as well. Patient denies any history of coronary disease or myocardial infarction or cardiomyopathy or in fact any other cardiac issues. He states he is fairly active without any limitations. He has 24 steps to walk up to his residence and he can do that without any issues. Per surgical notes, diagnosed with recurrent left inguinal hernia and he needs surgery. Review of Systems 2 Review of Systems: Yes all other systems are reviewed and are negative Constitutional: Constitutional: Reports as per HPI and Reports no additional constitutional complaints Eyes: Eyes: Reports as per HPI and Denies no additional eye complaints ENT: Denies system reviewed and no additional complaints, except as documented and Reports as per HPI Cardiovascular: Cardiovascular: Reports as per HPI, Reports no additional cardiovascular complaints, Denies acrocyanosis, Denies cool extremities, Denies chest pain, Denies leg edema, Denies lightheadedness, Denies palpitations and Denies dyspnea Respiratory: Respiratory: Reports as per HPI, Denies no additional respiratory complaints and Denies dyspnea Gastrointestinal: Gastrointestinal: Reports as per HPI and Denies no additional gastrointestinal complaints Genitourinary: Genitourinary: Reports no additional male genitourinary complaints and Reports as per HPI Musculoskeletal: Musculoskeletal: Reports no additional musculoskeletal complaints and Reports as per HPI Integumentary/Breasts: Skin/Breast: Reports system reviewed and no additional complaints, except as docu Neurologic: Reports system reviewed and no additional complaints, except as documented and Reports as per HPI Psychiatric: Psychiatric: Reports no additional psychiatric complaints and Reports as per HPI Endocrine: Endocrine: Reports no additional endocrine complaints, Reports as per HPI and Denies palpitations Hematologic/Lymphatic: Hematologic/Lymphatic: Reports no additional hematologic/lymphatic complaints and Reports as per HPI Allergic/Immunologic: Allergic/Immunologic: Reports no additional allergic/immunologic complaints and Reports as per HPI [facility] Past Medical History Medical History (Updated 10/21/24 @ 09:49 by Daniel Manriquez MD) Syphilis contact, treated Constipation Transurethral resection of prostate (TURP) syndrome Left leg swelling Diverticulosis Tubular adenoma of colon Left groin pain Epidermal cyst COVID-19 vaccine series completed BPH (benign prostatic hyperplasia) GERD (gastroesophageal reflux disease) HTN (hypertension) Recurrent inguinal hernia Lower abdominal pain Family History Family History Sister Breast cancer Surgical History Surgical History (Updated 10/20/24 @ 23:17 [facility] H/O varicose vein stripping History of removal of cyst History of removal of cyst History of left inguinal hernia repair Hx of varicose vein ligation and stripping H/O colonoscopy History of hernia surgery Hx of cystoscopy Hx of transurethral resection of prostate History of hernia surgery Social History Social History Household Members: Spouse Housing: House Are you a primary care team assistant to a significant other at home: No Do you presently have visiting nurse or other home services: No Alcohol intake: never Patient Tobacco Use Status: Never used Tobacco Smoked in Last 30 Days: No Use of substances other than those prescribed or required for medical reasons: No Advance Directives: No Advance Directives Information Provided: No service: No Current occupational status: retired Travel History Ebola Risk: Travel/Contact With Anyone From Affected Area/s: No Has Patient Experienced Ebola Symptoms: No Meds Allergies Allergy/AdvReac Type Severity Reaction Status Date / Time No Known Allergies (No Known Allergy Verified 10/20/24 12:36 Allergies*) Active Medications: Current Medications Finasteride (Finasteride 5 Mg Tablet) 5 mg PO DAILY [facility] Heparin Sodium (Porcine) (Heparin Sodium,Porcine 5,000 Unit/Ml Vial) 5,000 unit SUBCUT Q12H [facility] Last Admin: 10/20/24 21:28 Dose: 5,000 unit Hydromorphone HCl (Hydromorphone Hcl 0.5 Mg/0.5 Ml Syringe) 0.5 mg IVPUSH Q3H PRN; Protocol PRN Reason: Pain, Severe (Pain Scale 7-10) Dextrose/Lactated Ringer's (D5lr) 1,000 mls @ 125 mls/hr IVCONT .Q8H [facility] Last Admin: 10/21/24 04:28 Dose: 125 mls/hr Ondansetron HCl (Ondansetron Hcl 4 Mg/2 Ml Vial) 4 mg IVPUSH QID PRN PRN Reason: Nausea Oxycodone HCl (Oxycodone Hcl Immed Release 5 Mg Tablet) 5 mg PO Q6H PRN PRN Reason: Pain, Moderate(Pain Scale 4-6) Sodium Chloride (0.9 % Sodium Chloride Flush 3 Ml Syringe) 3 ml IVFLUSH QSHIFT [facility] Last Admin: 10/21/24 01:15 Dose: 3 ml Home Medications ?Medication ?Instructions ?Recorded ?Confirmed ?Last Taken ?Type fluticasone propionate 50 2 spray intranasal DAILY PRN 07/08/20 10/20/24 Unknown History mcg/actuation nasal Allergy Symptoms spray,suspension lisinopril 40 mg tablet 40 mg PO DAILY 07/08/2010/0610/20/24 History metoprolol succinate 100 mg 100 mg PO DAILY 07/08/20 0 10/20/24 10/20/24 History tablet,extended release 24 hr metoprolol succinate 25 mg 25 mg PO DAILY 02/22/2110/20/24 History tablet,extended release 24 hr multivitamin 1 tab PO DAILY 08/19/2110/0610/20/24 History aspirin 81 mg tablet,delayed 81 mg PO DAILY 11/14/23 0 10/20/24 10/20/24 History release ibuprofen 600 mg tablet 600 mg PO Q8H PRN pain 10/2010/20/24 Unknown History Physical Exam 2 Vital Signs: Vital Signs: Last Vital Signs Temp 97.8 F 10/21/24 06:01 Pulse 97 10/21/24 06:01 Resp 16 10/21/24 06:01 BP 184/102 H 10/21/24 06:01 Pulse Ox 98 10/21/24 06:01 O2 Del Method Room Air 10/21/24 06:01 BMI result Body Mass Index 29.3 Const: General: comfortable and no acute distress O rientation/consciousness: patient oriented x3 HEENT: Other: Unremarkable Head: Yes normal to inspection Neck: Neck: Yes normal visual inspection Chest: Chest palpation & inspection: normal inspection of the chest Resp: Auscultation: clear to auscultation bilaterally Cardio: Palpation: normal PMI Heart sounds: S1 normal heart sound present, S2 normal heart sound present, no gallops, no murmurs and no rubs GI: Palpation (GI): Soft to palpation Back/Spine/Pelvis: Other: unremarkable Skin: General skin exam: no rashes or lesions noted Neuro: General: patient oriented x3 Extrem: General: Yes normal to inspection Psych: Mental Status: mental status grossly normal Objective Labs and Meds 10/20/24 13:23 10/20/24 13:23 Lab results: Laboratory Results - last 24 hr 10/20/24 10/20/24 10/21/24 13:23 15:58 05:00 WBC 5.4 RBC 4.84 Hgb 14.6 Hct 42.9 MCV 88.6 MCH 30.2 MCHC 34.0 RDW 13.0 Plt Count 194 MPV 10.3 Immature Gran % (Auto) 0.2 Neut % (Auto) 52.4 Lymph % (Auto) 38.1 [place] % (Auto) 6.7 Eos % (Auto) 1.5 Baso % (Auto) 1.1 Lymph # (Auto) 2.1 [place] # (Auto) 0.4 Eos # (Auto) 0.1 Baso # (Auto) 0.1 Abs Immat Gran (auto) 0.01 Absolute Neuts (auto) 2.8 Absolute Nucleated RBC 0.000 Nucleated RBC % (auto) 0.0 Sodium 143 Potassium 3.7 Chloride 110 H Carbon Dioxide 24 Anion Gap 13 BUN 17 H Creatinine 0.91 Estim Creat Clear Calc 81.6 Estimated GFR > 60 Random Glucose 114 Lactic Acid 2.7 H* Lactic Acid F/U @ 2Hr 1.4 Calcium 8.9 Magnesium 2.1 Total Bilirubin 0.7 AST 28 ALT 14 Alkaline Phosphatase 70 NT-Pro-B Natriuret Pep 201.9 Total Protein 6.8 Albumin 3.9 TSH 0.99 T.pallidum Ab (EIA) Reactive A ECG Interpretation: EKG shows sinus rhythm with prolonged NC and a bifascicular block pattern. Left anterior fascicular block with right bundle-branch block. Chronic finding. Imaging Radiologist's impression: Impressions Venous Duplex 10/20/24 21:37 IMPRESSION: No evidence of acute DVT in the left lower extremity. Electronically signed by: Atilio Mead MD 10/21/2024 07:33 AM EDT Assessment and Plan (1) Preoperative cardiovascular examination: Status: Acute (2) Bifascicular block: Status: Acute (3) First degree atrioventricular block: Status: Acute (4) HTN (hypertension): Status: Acute Plan EKG with chronic bifascicular block. N terminal pro BNP is within range. Blood pressures are quite high but he states he is also on a lot of pain which might contribute to that. We will review the echocardiogram that is currently being performed. Overall, do not see any obvious contraindications for surgery. Should be able to proceed as planned. With regard to other medical management, would try to cut back on the beta- blockers eventually but not acutely-due to conduction system disease. Procedures Date of Service Date of Service: 10/21/24
[2024-10-21 11:20] LABS: Appearance Urine Clear; Glucose Urine UA Negative (Negative); PH 8.5 (5.0-9.0); Specific Gravity - Urine 1.010 (1.005-1.025)
--- NOTE | 2024-10-21 14:09 | PM.EVENT ---
Event Note Date of Service: 10/21/24 Event Note: He is well known to me for multiple repairs of a left inguinal hernia in the past Last repair was in 2020 with note of recurrent He was admitted because of his complains of pain in the left groin last night He admits to BPH with some difficulty of urinary Currently, he appears to be pain free Hernia on the left is partially reducible currently not 10 CAT scan reviewed -the bladder appears to be involved with the hernia but there were no bowel loops seen Abdomen is soft and benign Multiple discussions with the patient were done throughout the day We will not be able to do his procedure until late tonight because of availability of OR room I can schedule him for tomorrow but I also explained to him that in view of his multiple recurrences, I can refer him electively to a specialist for a different surgical approaches He says he does not want to wait for tomorrow and that he wants to eat He says that he wants to go home now and we will talk to me in the office about a referral He has family including his daughter were involved in the discussion and agreed with the referral to a specialist I have ordered for diet for him His family was with him during the discussion Time Spent With Patient Time: Total time managing care of this patient today ____ minutes.
--- NOTE | 2024-10-21 14:24 | HO.PM.IMPN ---
Subjective Subjective Date of Service: 10/21/24 Interval History: Chart reviewed patient examined. Medical consult prior to inguinal hernia repair. Patient currently pain-free Review of Systems Denies chest pain No shortness a breath Denies/vomiting diarrhea Denies fever chills Physical Exam Vital Signs: Vital Signs: Last Vital Signs Temp 96.8 F 10/21/24 11:02 Pulse 54 10/21/24 13:36 Resp 18 10/21/24 11:02 BP 180/80 H 10/21/24 13:14 Pulse Ox 98 10/21/24 12:00 O2 Del Method Room Air 10/21/24 12:00 BMI result Body Mass Index 28.9 Const: Other: Awake alert in no acute distress Resp: Other: Clear to auscultation bilaterally no rales rhonchi or wheezes Cardio: Other: No S4; positive S1-S2; no S3 murmurs rubs or gallops GI: Other: Soft nontender nondistended normoactive bowel sounds : Other: Palpable left inguinal hernia Extrem: Other: No edema bilateral Objective Data Active Medications Finasteride (Finasteride 5 Mg Tablet) 5 mg PO DAILY [facility] Last Admin: 10/21/24 13:21 Dose: Not Given Documented By: JUDITH Non-Admin Reason: Patient Refused Comments: patient reported he doesn't take at home - nursing could not see a note regarding starting this medication. Heparin Sodium (Porcine) (Heparin Sodium,Porcine 5,000 Unit/Ml Vial) 5,000 unit SUBCUT Q12H [facility] Last Admin: 10/21/24 11:20 Dose: Not Given Documented By: JUDITH Non-Admin Reason: Physician Held Med Comments: Told to hold medication per Sheryl Herron for potential OR today. Hydromorphone HCl (Hydromorphone Hcl 0.5 Mg/0.5 Ml Syringe) 0.5 mg IVPUSH Q3H PRN; Protocol PRN Reason: Pain, Severe (Pain Scale 7-10) Dextrose/Lactated Ringer's (D5lr) 1,000 mls @ 125 mls/hr IVCONT .Q8H [facility] Last Admin: 10/21/24 04:28 Dose: 125 mls/hr Documented By: NARA Lisinopril (Lisinopril 40 Mg Tablet) 40 mg PO DAILY [facility]; Protocol Last Admin: 10/21/24 13:20 Dose: 40 mg Documented By: JUDITH Metoprolol Succinate (Metoprolol Succinate Er 100 Mg Tab.Er.24h) 100 mg PO DAILY [facility]; Protocol Last Admin: 10/21/24 13:36 Dose: Not Given Documented By: JUDITH Non-Admin Reason: Decreased Heart Rate Comments: hold per MD Stephen Metoprolol Succinate (Metoprolol Succinate Er 25 Mg Tab.Er.24h) 25 mg PO DAILY [facility]; Protocol Last Admin: 10/21/24 13:37 Dose: Not Given Documented By: JUDITH Non-Admin Reason: Decreased Heart Rate Comments: hold per provider Jason Stephen. Ondansetron HCl (Ondansetron Hcl 4 Mg/2 Ml Vial) 4 mg IVPUSH QID PRN PRN Reason: Nausea Oxycodone HCl (Oxycodone Hcl Immed Release 5 Mg Tablet) 5 mg PO Q6H PRN PRN Reason: Pain, Moderate(Pain Scale 4-6) Sodium Chloride (0.9 % Sodium Chloride Flush 3 Ml Syringe) 3 ml IVFLUSH QSHIFT [facility] Last Admin: 10/21/24 10:50 Dose: Not Given Documented By: JUDITH Non-Admin Reason: IV Running Labs 10/20/24 13:23 10/20/24 13:23 Labs: Laboratory Results - last 24 hr 10/20/24 10/20/24 10/21/24 13:23 15:58 05:00 Lactic Acid F/U @ 2Hr 1.4 Magnesium 2.1 NT-Pro-B Natriuret Pep 201.9 TSH 0.99 Urine Color Urine Appearance Urine pH Ur Specific [place] Urine Protein Urine Glucose (UA) Urine Ketones Urine Blood Urine Nitrite Ur Leukocyte Esterase T.pallidum Ab (EIA) Reactive A 10/21/24 10:49 Lactic Acid F/U @ 2Hr Magnesium NT-Pro-B Natriuret Pep TSH Urine Color Yellow Urine Appearance Clear Urine pH 8.5 Ur Specific [place] 1.010 Urine Protein Negative Urine Glucose (UA) Negative Urine Ketones Negative Urine Blood Negative Urine Nitrite Negative Ur Leukocyte Esterase Negative T.pallidum Ab (EIA) Assessment and Plan (1) Incarcerated left inguinal hernia: Status: Acute (2) First degree atrioventricular block: Status: Acute (3) COPD (chronic obstructive pulmonary disease): Status: Acute Plan Pt is an 83 yo male Latvian speaking, declined need for safety officer has PMH of HTN, COPD, PNA, GERD, PVD, BPH, diverticulosis Left groin Epidermal cyst, syphilis (20's received tx), PE without DVT completed eliquis for 1 yr then switched to ASA 81 mg daily, inguinal hernia with last repair 2021, varicose vein ligation and stripping constipation, transurethral resection of prostate, OA presents to ED after being seen as an outpatient for increasing left sided lower abdominal and groin pain with N/V currently resolved. Pt was evaluated in the ED, found to have an incarcerated L inguinal hernia containing bladder via CT scan and was admitted by Dr. Bautista for surgery. Hospitalist requested consult for pre op clearance. Pt does report remote hx of tobacco use, marijuana use and alcohol use over 20 years prior. 1.Incarcerated L inguinal Hernia -management per surgery 2.First Degree AVB with prolonged MA 288, Bifasicular Block and prolonged QtC 472 -appreciate cardiology input. -echo reviewed by Cardiology -patient is a moderate but acceptable cardiovascular risk for surgery and can proceed as outlined. There are no medically prohibitive factors 3.Left Leg swelling chronic vs Acute/ HX of PE -ultrasound negative -conservative 4.COPD -stable and well compensated We will follow along Quality Stroke Does the patient have a stroke diagnosis?: No VTE Prior VTE?: No VTE Risk Level:: Surgical - high VTE Device Contraindication: N/A - Device Ordered VTE Drug Contraindication: N/A - Med Ordered
--- NOTE | 2024-10-21 14:51 | MHC.CM.PN ---
DP: PT HAS BEEN MEDICALLY CLEARED FOR DC HOME, NO SERVICES. PT HAS OWN RIDE HOME.
--- NOTE | 2024-10-21 14:58 | PC.NURSE ---
Jason Stephen notified of discharge vital signs, provider messaged via [employer] okay to continue with discharge and patient to resume home Metoprolol tomorrow. Patient and family educated regarding discharge instructions, including medications and follow ups, patient verbalized understanding with no questions at this time.
--- NOTE | 2024-10-21 15:47 | PM.DS ---
DS: Providers Provider Date of Service: 10/21/24 Date of admission: 10/20/24 20:40 Date of discharge: 10/21/24 Primary care physician: Mathew Quarles MD Attending physician on admission: Harsha Tang Consults: 10/20/24 20:40 Consult to Hospitalist Routine Comment: Consulting Provider[place] [facility] Reason For Exam: Preop assessment, incarcerated left inguinal herni 10/20/24 23:28 Consult to Cardiology Routine Consulting Provider: [facility] Reason for consultation: pre op clearance, abn ECG 10/21/24 08:38 Consult to Urology Routine Consulting Provider: [facility] Reason for consultation: BPH, hx of laser prostate, not on prostate meds Attending physician on discharge: Nayan Geiger DS: Diagnosis Discharge Diagnosis (1) Incarcerated left inguinal hernia: Status: Acute (2) First degree atrioventricular block: Status: Acute (3) COPD (chronic obstructive pulmonary disease): Status: Acute DS: Summary Hospital Course Hospital Course: HPI AT ADMISSION: Edgar Kruse is a 83 year old male with PMH significant for HTN, COPD, PNA, GERD, PVD, BPH, hx of b/l PE who presented to the ED with complaints of left groin pain. He has a known left inguinal hernia. He underwent repair of a recurrent left inguinal hernia with Prolene plug in [address] Geiger. This was technically challenging as he had significant, thick dense fibrosis in the area due to his multiple prior repairs. He reports some persistent pain at the repair site since the surgery however the pain began to worsen about 6 weeks ago and became severe on Sunday. He reports some vomiting when the pain was severe. He tried to wait it out to see if he could be seen in the general surgery office however his PCP said they could not give him a referral and he went to urgent care who sent him to the ED. Work up was significant for CBC, BMP, LFTs which were WNL however lactic acid of 2.[address] scan was performed which showed left inguinal hernia containing small amount of the bladder wall. He was therefore admitted to the surgical service for the recurrent left inguinal hernia. He reports resolution of the left groin pain. He denies any further nausea, vomiting, fevers, chills. He is passing flatus and his last BM was Lefty. He does report some difficulty with urinating and has to push hard to initiate. He also endorses nocturia. He had previously been seen by urology and underwent laser prostate in early 2019 and has been off meds. He has been voiding without difficulty this morning. He denies past abdominal surgeries except for the multiple left inguinal hernia repairs and right inguinal hernia repair. HOSPITAL COURSE: The patient was admitted to the surgical service for the left inguinal hernia containing bladder with increased pain. He did have a lactic acidosis which normalized with IVF. His hernia was partially reducible. His pain however improved and resolved. It was discussed multiple times that we could proceed with repair of the left inguinal hernia the following day however it would be technically difficult and may be unsuccessful and/or result in recurrence. It was also discussed that he can be referred electively to a specialist for a different surgical approaches. He decided to go home now and follow up in the office about a referral. He was advanced to a solid diet. He remained without left groin pain. He was started on finasteride and instructed to follow up with urology for further treatment of his BPH. He was discharged to home on 10/21/24 in stable condition. He is to f/u in the office in 1-2 weeks. Status at Discharge Functional status at discharge: independent ambulation Overall status at discharge: patient is progressing back to baseline Time Attestation Discharge Coordination Time (in mins): 25 Quality: Safe Use of Opioids Does Pt have an Active Cancer Diagnosis on the Problem List?: No Quality: Stroke Does the patient have a stroke diagnosis?: No Physical Exam Vital Signs: Vital Signs: Last Vital Signs Temp 97.6 F 10/21/24 14:36 Pulse 60 10/21/24 14:35 Resp 16 10/21/24 14:36 BP 161/95 H 10/21/24 14:35 Pulse Ox 96 10/21/24 14:35 O2 Del Method Room Air 10/21/24 14:35 BMI result Body Mass Index 28.9 Const: General: comfortable, no acute distress and alert Resp: Effort & Inspection: normal respiratory effort GI: Inspection: No distended Palpation (GI): Soft to palpation and nontender Skin: General skin exam: no rashes or lesions noted Discharge Plan Discharge Anticipated Discharge Date/Time: 10/21/24 14:34 Patient Disposition: Home, Self-Care Discharge Diagnosis: recurrent left inguinal hernia Referrals: Richie Everett MD [Physician, Urology] - 2 Weeks Mathew Quarles MD [Primary Care Provider, Medical] - 1 Week Nayan Geiger MD [Physician, General Surgery] - 1 Week Discharge Medications: New finasteride 5 mg tablet 5 mg PO DAILY Qty: 60 0RF Continued multivitamin Tablet 1 tab PO DAILY ibuprofen 600 mg tablet 600 mg PO Q8H PRN (Reason: pain) lisinopril 40 mg tablet 40 mg PO DAILY metoprolol succinate 100 mg tablet extended release 24 hr 100 mg PO DAILY fluticasone propionate 50 mcg/actuation spray,suspension 2 spray intranasal DAILY PRN (Reason: Allergy Symptoms) metoprolol succinate 25 mg tablet extended release 24 hr 25 mg PO DAILY aspirin 81 mg tablet,delayed release (DR/EC) 81 mg PO DAILY famotidine 40 mg tablet 40 mg PO BEDTIME Qty: 90 1RF pantoprazole 40 mg tablet,delayed release (DR/EC) 40 mg PO DAILY Qty: 90 1RF Discharge Orders: Discharge Order (Routine); Ordered 10/21/24 Ordered By: Nayan Geiger Diet: Advance to usual diet Activity on Discharge: No heavy lifting Stand Alone Forms: Patient Portal Discharge page Print Language: Bengali Activity Restrictions/Additional Instructions: Follow up in office in a week for follow up regarding your left inguinal hernia. ([phone]) Begin finasteride and follow up with urology regarding your BPH. Follow up with your director of midwifery/staff midwife as scheduled. Call Your Doctor If: ? ? -Your temperature exceeds 101.5? F? ? ? -You experience excessive pain or swelling ? ? -You have an unexpected reaction to medication ? ? -You experience continued vomiting/nausea Care Plan Goals: Return to baseline health and resume normal activities. Health Concerns: recurrent left inguinal hernia HTN bifascicular block, prolonged WI interval on EKG BPH Plan of Treatment: Observation F/u in office to discuss repair of recurrent left inguinal hernia F/u urology and cardiology Assessment: Improved Patient Instructions: Finasteride (By mouth), Chronic Hypertension (ED) Discharge Date/Time: 10/21/24 15:08
[2024-10-24 14:53] LABS: T.Pallidum Particle Agg Test Reactive (Nonreactive)
== END 2024-10-21 15:08 | disposition home or self-care (01) | DRG 395 ==
LOC: HO.ED 20:38 → HO.EDOVER 20:55 → HO.S3 10-21 08:23
PROVIDERS: Nurse Practitioner Family; Registered Nurse Emergency; Admitting Provider Surgery; Emergency Provider Student in an Organized Health Care Education/Training Program; PCP Internal Medicine; Visit Provider Surgery
DX: K40.31 Unilateral inguinal hernia, with obstruction, without gangrene, recurrent (principal); I44.0 Atrioventricular block, first degree; I10 Essential (primary) hypertension; N40.0 Benign prostatic hyperplasia without lower urinary tract symptoms; J44.9 Chronic obstructive pulmonary disease, unspecified; Z86.711 Personal history of pulmonary embolism; Z79.51 Long term (current) use of inhaled steroids; Z79.899 Other long term (current) drug therapy
CPT/HCPCS: 36415; 74177; 80053; 81003; 83605; 83735; 83880; 84443; 85025; 86592; 86780; 93005; 93306; 93971; 99285; J1644; Q9957; Q9967

== ENCOUNTER → 2024-10-20 18:08 | Outpatient (BNV) | payer MEDICARE, MEDICAID, SELFPAY | PROVIDERS: PCP Internal Medicine; Visit Provider Radiology Diagnostic Radiology | DX: Z01.818 Encounter for other preprocedural examination (principal) | CPT/HCPCS: 93971 ==

== ENCOUNTER 2024-10-20 20:40 | Outpatient (BNV) | payer MEDICARE, MEDICAID, SELFPAY | END 2024-10-21 07:00 | PROVIDERS: Admitting Provider Surgery; Emergency Provider Student in an Organized Health Care Education/Training Program; PCP Internal Medicine; Visit Provider Internal Medicine | DX: I35.1 Nonrheumatic aortic (valve) insufficiency (principal); R94.31 Abnormal electrocardiogram [ECG] [EKG]; I77.810 Thoracic aortic ectasia | CPT/HCPCS: 93306 ==

== ENCOUNTER → 2024-10-20 20:40 | Outpatient (BNV) | payer MEDICARE, MEDICAID, SELFPAY | PROVIDERS: Admitting Provider Surgery; Emergency Provider Student in an Organized Health Care Education/Training Program; PCP Internal Medicine; Visit Provider Nurse Practitioner Family | DX: K40.30 Unilateral inguinal hernia, with obstruction, without gangrene, not specified as recurrent (principal); I44.0 Atrioventricular block, first degree; I45.2 Bifascicular block; M79.89 Other specified soft tissue disorders; J44.9 Chronic obstructive pulmonary disease, unspecified | CPT/HCPCS: 99222; 99232 ==

== ENCOUNTER → 2024-10-20 20:40 | Outpatient (BNV) | payer MEDICARE, MEDICAID, SELFPAY | PROVIDERS: Admitting Provider Surgery; Emergency Provider Student in an Organized Health Care Education/Training Program; PCP Internal Medicine; Visit Provider Surgery | DX: K40.30 Unilateral inguinal hernia, with obstruction, without gangrene, not specified as recurrent (principal); I44.0 Atrioventricular block, first degree; J44.9 Chronic obstructive pulmonary disease, unspecified; K40.91 Unilateral inguinal hernia, without obstruction or gangrene, recurrent | CPT/HCPCS: 99238; 99499 ==

== ENCOUNTER → 2024-10-20 20:40 | Outpatient (BNV) | payer MEDICARE, MEDICAID, SELFPAY | PROVIDERS: Admitting Provider Surgery; Emergency Provider Student in an Organized Health Care Education/Training Program; PCP Internal Medicine; Visit Provider Internal Medicine | DX: Z01.810 Encounter for preprocedural cardiovascular examination (principal); I45.2 Bifascicular block; I44.0 Atrioventricular block, first degree; I10 Essential (primary) hypertension | CPT/HCPCS: 93010; 99223 ==